=== PATIENT | male | born 1930 ===

== ENCOUNTER 2016-08-28 13:41 | Inpatient (IN) | payer MEDICARE, BC ==
[2016-08-28] MEDS ORDERED: Insulin Regular 1 UNITS/0.01 ML ML ONE (13:52)
[2016-08-28] MEDS ORDERED: Lidocaine 2% Inj (20ml) ONE (14:01)
[2016-08-28] MEDS ORDERED: Phenylephrine 10 mg/ml Inj ONE (14:02)
[2016-08-28] MEDS ORDERED: Midazolam 2 MG/2 ML VIAL ONE (14:02)
[2016-08-28] MEDS ORDERED: Iohexol 350mgl/ml 50 ML ONE (14:03)
[2016-08-28] MEDS ORDERED: Iodixanol 320 MG/ML 200 ML BOTTLE IV ONE (14:03)
[2016-08-28] MEDS ORDERED: Nitroglycerin 50mg in D5W 0 MG/0 ML BOTTLE IV ONE (14:03)
--- NOTE | 2016-08-28 14:03 | ED PDOC ---
Arrival/HPI - General Chief Complaint: Cardiac Arrest Time Seen by Provider: 08/28/16 13:52 Historian: EMS - History of Present Illness Narrative History of Present Illness (Text): 08/28/16 13:40 Patient is an 86 year old male whose past medical history includes renal failure on dialysis presents to the emergency department after witnessed cardiac arrest approximately 10 minutes prior to arrival. As per EMS, patient was going to dialysis and was complaining of shortness of breath as he was being transferred from the wheelchair to the dialysis chair. Patient then reportedly had witnessed cardiac arrest. CPR in progress on arrival to the emergency department. 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) - Renal Date of Last Dialysis Treatment: 09/06/15 Hx Renal Failure: Yes - Endocrine/Metabolic Hx Diabetes Mellitus Type 2: Yes - Hematological/Oncological Hx Blood Transfusions: No - Musculoskeletal/Rheumatological Hx Musculoskeletal Disorders: Yes - Gastrointestinal Hx Gastrointestinal Disorders: Yes (Constipation) - Psychiatric Hx Emotional Abuse: No Hx Physical Abuse: No Hx Substance Use: No - Surgical History Other/Comment: angioplasty, dialysis access rt arm - Anesthesia Hx Anesthesia Reactions: No Hx Malignant Hyperthermia: No - Suicidal Assessment Feels Threatened In Home Enviroment: No Family/Social History - Physician Review Nursing Documentation Reviewed: Yes Family/Social History: Unknown Family HX Smoking Status: Unknown If Ever Smoked Hx Alcohol Use: No Hx Substance Use: No Allergies/Home Meds Allergies/Adverse Reactions: Allergies No Known Allergies Allergy (Verified 09/07/15 21:26) Home Medications: Home Meds Medication Instructions Recorded Confirmed Aluminium Sulfate/Calcium Acet 1 tab PO TID 07/19/15 07/19/15 [[place]] Bimatoprost [Lumigan] 1 drop AU DAILY 07/19/15 07/19/15 Insulin Lispro Protamin/Lispro 15 units SC BID 07/19/15 07/19/15 [Humalog Mix 75-25 Vial] Calcium Acetate [Phoslo] 667 mg PO WM 09/07/15 04/22/16 Insulin Lispro Protamin/Lispro 15 unit SC ACBD 09/07/15 04/22/16 [Humalog Mix 75/25 75 U/ml-25 U/ml 10 ml] ALPRAZolam [Xanax] 0.25 mg PO BID PRN 04/18/16 04/22/16 Gabapentin [Neurontin] 100 mg PO BID 04/18/16 04/22/16 Review of Systems - Review of Systems Systems not reviewed;Unavailable: Acuity of Condition Physical Exam - Physical Exam Narrative Physical Exam (Text): Head: Atraumatic. Normocephalic. Eyes: pupils are nonreactive ENT: vomitus noted in oropharynx, large amount of secretions Neck: trachea midline, no edema or crepitus Cardiovascular: pulseless, no cardiac activity Pulmonary/Chest: no spontaneous respirations Abdominal: Soft but mildly distended Back: normal inspection Rectal: brown heme negative stool Extremities: no calf edema noted Skin: cool and pale Neurological: no movements, pupils fixed, no spontaneous respirations, unresponsive Vital Signs Reviewed: Yes Vital Signs Temp Pulse Resp BP Pulse Ox 08/28/16 14:15 97.6 F 58 L 14 112/56 L 96 08/28/16 14:10 61 16 96/63 L 96 08/28/16 13:55 89 16 178/75 H 98 Pulse: Pulseless Medical Decision Making ED Course and Treatment: Patient seen immediately on arrival. History obtained by EMS personnel, reported witnessed arrest at dialysis center. HE DID NOT START DIALYSIS PRIOR TO ARRIVAL. He was scheduled for today. No family members present on arrival. Reported witnessed arrest "patient slumped in chair". Reportedly he had been complaining of shortness of breath. Patient is found to be pulseless on arrival. IV line established as CPR continued. Asystole on monitor. Patient intubated by me on arrival. Patient pulseless and unresponsive. Oropharynx suctioned of food material. Vocal cords visualized and 7.5 ET tube passed through vocal cords with direct visualization. ET tube visualized through cords, appropriate CO2 change as well as good breath sounds bilaterally with ventilation. Respiratory at bedside as CPR continued. Differential diagnosis included acute KS, possible hyperkalemia as he is dialysis patient and did not complete dialysis. Thus, bicarbonate, calcium, d50, insulin given. 1342 1st epi 1344 1st bicarb, 1st calcium 1st shock for wide complex tachycardia 1346 2nd epi, 2nd bicarb 1349 2nd shock for ventricular fibrillation 1350 3rd epi, amiodarone given for wide complex rhythm noted on monitor Return of pulses, carotid pulse palpated. EKG obtained. EKG at 13:59 consistent with acute myocardial infarction. Code Heart called. Case discussed with Dr. Singh. Patient maintained pulse and blood pressure in ED. Dr. Rose, patient's PMD notified and present, requests admission to Dr. Avila. Patient to be admitted to ICU, plan to take to civil laboratory technician given EKG findings. Son and daughter updated with patient's condition and treatment plan. PROCEDURE: CT HEAD WITHOUT CONTRAST. Plant Packer : Adonis Chavez MD Report Date : 08/28/2016 14:59:06 IMPRESSION: No acute findings Care turned over to cardiology team/icu team at 14:50. - Critical Care Critical Care Minutes: 45 minutes - Lab Interpretations Microbiology Results: Microbiology Results 08/28/16 14:15 Blood Blood Culture - Preliminary NO GROWTH AFTER 24 HOURS 08/28/16 14:12 Blood Blood Culture - Preliminary NO GROWTH AFTER 24 HOURS Lab Results: 08/28/16 14:05 08/28/16 14:05 Lab Results 08/28/16 14:05: Sodium 136, Potassium 3.8, Chloride 92 L, Carbon Dioxide 23, Anion Gap 25 H, BUN 80 H, Creatinine 6.1 H, Est GFR ( Amer) 11, Est GFR ( Non-Af Amer) 9, Random Glucose 440 H* D, Calcium 9.3, Total Bilirubin 0.7, AST 162 H, ALT 141 H, Alkaline Phosphatase 129, Lactate Dehydrogenase 1139 H, Total Creatine Kinase 308 H, CK-MB (CK-2) 27.8 H, CK-MB (CK-2) % 9.0 H, Troponin I 5.79 H* D, NT-Pro-B Natriuret Pep 00367 H, Total Protein 6.3, Albumin 3.7, Globulin 2.7, Albumin/Globulin Ratio 1.4 08/28/16 14:05: Sodium 156 H*, Potassium 4.9, Chloride 97 L, Carbon Dioxide 43 H D, Anion Gap 21 H, BUN 86 H, Creatinine 4.9 H, Est GFR ( Amer) 14, Est GFR (Non-Af Amer) 11, Random Glucose 213 H, Calcium 11.7 H, Total Bilirubin 0.6 , AST 43, ALT 38, Alkaline Phosphatase 72, Lactate Dehydrogenase 720 H, Total Creatine Kinase 153, Troponin I 4.33 H* D, NT-Pro-B Natriuret Pep 66349 H, Total Protein 5.3 L, Albumin 2.9 L, Globulin 2.4, Albumin/Globulin Ratio 1.2 08/28/16 14:05: PT 15.5 H, INR 1.44 H, APTT 29.0 08/28/16 14:05: WBC 10.3 D, RBC 2.95 L, Hgb 9.3 L, Hct 28.3 L, MCV 95.9, MCH 31.5, MCHC 32.9, RDW 14.4, Plt Count 106 L, MPV 12.3 H, Gran % 36.1 L, Lymph % ( Auto) 55.8 H, Fult[place] % (Auto) 6.0, Eos % (Auto) 1.8, Baso % (Auto) 0.3, Gran # 3.71, Lymph # 5.7 H, [place] # 0.6, Eos # 0.2, Baso # 0.03 - RAD Interpretation Radiology Orders: 08/28/16 13:59 CHEST PORTABLE [RAD] Stat Stock Counter: ED Physician, Radiologist - EKG Interpretation Interpreted by ED Physician: Yes Type: 12 lead EKG - Medication Orders Current Medication Orders: Albuterol/Ipratropium (Duoneb 3 Mg/0.5 Mg (3 Ml) Ud) 3 ml IH [id number] [facility] Last Admin: 08/30/16 07:11 Dose: 3 ml Albuterol/Ipratropium (Duoneb 3 Mg/0.5 Mg (3 Ml) Ud) 3 ml IH Q2H PRN PRN Reason: Shortness of Breath Aspirin (Ecotrin) 81 mg PO DAILY [facility] Last Admin: 08/30/16 09:14 Dose: 81 mg Atorvastatin Calcium (Lipitor) 80 mg PO DIN [facility] Last Admin: 08/28/16 18:11 Dose: 80 mg Carvedilol (Coreg) 3.125 mg PO BID [facility] Last Admin: 08/30/16 09:14 Dose: Not Given Non-Admin Reason: BP Parameters Not Met Clopidogrel Bisulfate (Plavix) 75 mg PO DAILY [facility] Last Admin: 08/30/16 09:15 Dose: 75 mg Heparin Sodium (Porcine) (Heparin) 5,000 units SC Q8H ALBERTO PRN Reason: Protocol Last Admin: 08/30/16 09:14 Dose: 5,000 units Levetiracetam 1,000 mg/ Sodium (Chloride) 110 mls @ 460 mls/hr IV Q12 [facility] Last Admin: 08/30/16 09:26 Dose: 460 mls/hr Acetaminophen (Ofirmev) 1,000 mg in 100 mls @ 400 mls/hr IVPB Q6H PRN PRN Reason: T more then 99.9 Stop: 08/30/16 16:58 Dobutamine HCl/Dextrose (Dobutamine/Dextrose 5% 500mg/250ml) 500 mg in 250 mls @ 4.763 mls/hr IV .Q24H PRN; Protocol; 2.5 MCG/KG/MIN PRN Reason: TITRATE PER PROTOCOL Last Admin: 08/30/16 07:00 Dose: 4.763 mls/hr Norepinephrine Bitartrate 4 mg (/ Dextrose) 254 mls @ 15.24 mls/hr IV .[id number] PRN; Protocol; 4 MCG/MIN PRN Reason: TITRATE PER MD ORDER Last Titration: 08/30/16 09:34 Dose: 4 mcg/min, 15.24 mls/hr Meropenem 500 mg/ Sodium (Chloride) 100 mls @ 100 mls/hr IVPB Q12 ALBERTO PRN Reason: Protocol Stop: 09/04/16 19:42 Last Admin: 08/30/16 09:15 Dose: 100 mls/hr Propofol (Diprivan) 1,000 mg in 100 mls @ 2.04 mls/hr IV .Q24H PRN; Protocol; 5 MCG/KG/MIN PRN Reason: TITRATE PER MD ORDER Sodium Bicarbonate 75 meq/ (Dextrose) 1,075 mls @ 150 mls/hr IV .Q7H10M [facility] Last Admin: 08/30/16 09:36 Dose: 150 mls/hr Insulin Human Lispro (Humalog Med) 0 units SC Q4H [facility] PRN Reason: Protocol Last Admin: 08/30/16 08:27 Dose: 5 units Pantoprazole Sodium (Protonix Inj) 40 mg IVP DAILY [facility] Last Admin: 08/30/16 09:15 Dose: 40 mg Discontinued Medications Albumin Human (Albumin Human 5% (12.5 Gm/250 Ml)) 12.5 gm IV ONCE ONE Stop: 08/28/16 19:29 Last Admin: 08/28/16 20:36 Dose: 12.5 gm Albumin Human (Albumin Human 5% (12.5 Gm/250 Ml)) 12.5 gm IV ONCE ONE Stop: 08/28/16 19:35 Albuterol/Ipratropium (Duoneb 3 Mg/0.5 Mg (3 Ml) Ud) Confirm Administered Dose 3 ml .ROUTE .STK-MED ONE Stop: 08/29/16 13:25 Aspirin (Aspirin) Confirm Administered Dose 325 mg .ROUTE .STK-MED ONE Stop: 08/28/16 14:11 Last Admin: 08/28/16 14:15 Dose: 325 mg Atropine Sulfate (Atropine) Confirm Administered Dose 1 mg .ROUTE .STK-MED ONE Stop: 08/28/16 14:02 Last Admin: 08/28/16 16:31 Dose: Clopidogrel Bisulfate (Plavix) Confirm Administered Dose 600 mg .ROUTE .ST-MED ONE Stop: 08/28/16 14:11 Last Admin: 08/28/16 14:15 Dose: 600 mg Eptifibatide (Integrilin Bolus) Confirm Administered Dose 20 mg IVP .ST-MED ONE Stop: 08/28/16 14:15 Last Admin: 08/28/16 14:25 Dose: 20 mg Eptifibatide (Integrilin Bolus) Confirm Administered Dose 40 mg IVP .ST-MED ONE Stop: 08/28/16 14:15 Last Admin: 08/28/16 14:58 Dose: 12.4 mg Comments: IV per Dr. Singh. 2nd bolus Fentanyl (Fentanyl) Confirm Administered Dose 100 mcg .ROUTE .STK-MED ONE Stop: 08/28/16 14:04 Last Admin: 08/28/16 16:31 Dose: Heparin Sodium (Porcine) (Heparin) Confirm Administered Dose 10,000 units .ROUTE .STK-MED ONE Stop: 08/28/16 14:03 Last Admin: 08/28/16 16:31 Dose: Heparin Sodium (Porcine) (Heparin) Confirm Administered Dose 5,000 units .ROUTE .STK-MED ONE Stop: 08/28/16 14:14 Last Admin: 08/28/16 14:20 Dose: 5,000 units Nitroglycerin/Dextrose (Nitroglycerin 50 Mg/250 Ml D5w) Confirm Administered Dose 50 mg in 250 mls @ ud IV .STK-MED ONE Stop: 08/28/16 14:04 Last Admin: 08/28/16 16:32 Dose: Heparin Sodium (Porcine) (Heparin 1000 Units/500 Ml Ns) Confirm Administered Dose 1,500 mls @ ud IV .STK-MED ONE Stop: 08/28/16 14:04 Eptifibatide (Integrilin) Confirm Administered Dose 75 mg in 100 mls @ ud IV .STK-MED ONE Stop: 08/28/16 14:14 Last Admin: 08/28/16 14:25 Dose: 5.6 mg Eptifibatide (Integrilin) Confirm Administered Dose 75 mg in 100 mls @ ud IV .STK-MED ONE Stop: 08/28/16 14:15 Last Admin: 08/28/16 14:56 Dose: Eptifibatide (Integrilin) 75 mg in 100 mls @ 4.953 mls/hr IV .[id number] ALBERTO; 1 MCG/KG/MIN PRN Reason: Protocol Stop: 08/29/16 09:00 Propofol (Diprivan) 1,000 mg in 100 mls @ 1.905 mls/hr IV .Q24H PRN; Protocol; 5 MCG/KG/MIN PRN Reason: TITRATE PER MD ORDER Last Admin: 08/29/16 22:30 Dose: 10 mcg/kg/min, 3.81 mls/hr Sodium Chloride (Sodium Chloride 0.9%) 1,000 mls @ 150 mls/hr IV .Q6H40M [facility] Last Admin: 08/30/16 00:50 Dose: 150 mls/hr Insulin Human Regular 100 (units/ Sodium Chloride) 100 mls @ 5 mls/hr IV .Q20H PRN; Protocol; 5 UNITS/HR PRN Reason: TITRATE PER MD ORDER Last Titration: 08/28/16 23:21 Dose: 10 units/hr, 10 mls/hr Vancomycin HCl (Vancomycin 1gm) 1 gm in 250 mls @ 167 mls/hr IVPB STAT STA PRN Reason: Protocol Stop: 08/28/16 18:45 Last Admin: 08/28/16 18:11 Dose: 167 mls/hr Sodium Chloride (Sodium Chloride 0.9%) 1,000 mls @ 999 mls/hr IV .Q1H1M STA Stop: 08/28/16 18:48 Last Admin: 08/28/16 18:06 Dose: 999 mls/hr Potassium Chloride (Potassium Chloride 20 Meq/100 Ml) Confirm Administered Dose 20 meq in 100 mls @ ud IVPB .STK-MED ONE Stop: 08/29/16 04:52 Sodium Bicarbonate 75 meq/ (Dextrose) 1,075 mls @ 75 mls/hr IV .[id number] [facility] Last Admin: 08/29/16 23:34 Dose: 75 mls/hr Potassium Chloride (Potassium Chloride 20 Meq/100 Ml) 20 meq in 100 mls @ 50 mls/hr IVPB Q2H [facility] Stop: 08/29/16 08:24 Propofol (Diprivan) 1,000 mg in 100 mls @ 1.905 mls/hr IV .Q24H PRN; Protocol; 5 MCG/KG/MIN PRN Reason: TITRATE PER MD ORDER Last Titration: 08/30/16 00:31 Dose: 15 mcg/kg/min, 5.715 mls/hr Vancomycin HCl (Vancomycin 1gm) 1 gm in 250 mls @ 167 mls/hr IVPB STAT STA PRN Reason: Protocol Stop: 08/30/16 10:10 Last Admin: 08/30/16 09:17 Dose: 167 mls/hr Insulin Human Regular (Humulin R) Confirm Administered Dose 2 units .ROUTE .STK- MED ONE Stop: 08/28/16 13:53 Iodixanol (Visipaque 320 Mg/Ml 200 Ml) Confirm Administered Dose 200 ml IV .STK- MED ONE Stop: 08/28/16 14:04 Last Admin: 08/28/16 15:00 Dose: 200 ml Comments: During cath Iodixanol (Visipaque 320 Mg/Ml 100 Ml) Confirm Administered Dose 100 ml IV .STK- MED ONE Stop: 08/28/16 14:05 Last Admin: 08/28/16 15:00 Dose: 100 ml Comments: During cath Iohexol (Omnipaque 350mg/Ml 50 Ml) Confirm Administered Dose 50 ml .ROUTE .STK- MED ONE Stop: 08/28/16 14:04 Last Admin: 08/28/16 15:00 Dose: 50 ml Comments: During cath Lidocaine HCl (Lidocaine 2% 20ml Vial) Confirm Administered Dose 20 ml .ROUTE .STK-MED ONE Stop: 08/28/16 14:02 Last Admin: 08/28/16 15:00 Dose: 8 ml Comments: SC into right groin by Dr. Singh Lorazepam (Ativan) 4 mg IVP STAT STA Stop: 08/28/16 16:57 Last Admin: 08/28/16 19:44 Dose: 4 mg Midazolam HCl (Versed Inj) Confirm Administered Dose 2 mg .ROUTE .STK-MED ONE Stop: 08/28/16 14:03 Last Admin: 08/28/16 16:33 Dose: Phenylephrine HCl (Phenylephrine Inj) Confirm Administered Dose 10 mg .ROUTE .STK-MED ONE Stop: 08/28/16 14:03 Last Admin: 08/28/16 15:28 Dose: 0.2 mg Comments: IV per Dr. Singh Verapamil HCl (Verapamil Inj) Confirm Administered Dose 5 mg IVP .STK-MED ONE Stop: 08/28/16 14:05 Last Admin: 08/28/16 16:33 Dose: - Scribe Statement The provider has reviewed the documentation as recorded by the Hugh Ferguson Provider Scribe Attestation: All medical record entries made by the Hugh were at my direction and personally dictated by me. I have reviewed the chart and agree that the record accurately reflects my personal performance of the history, physical exam, medical decision making, and the department course for this patient. I have also personally directed, reviewed, and agree with the discharge instructions and disposition. Disposition/Present on Arrival - Present on Arrival Any Indicators Present on Arrival: No History of DVT/PE: No History of Uncontrolled Diabetes: No Urinary Catheter: No History of Decub. Ulcer: No History Surgical Site Infection Following: None - Disposition Have Diagnosis and Disposition been Completed?: Yes Diagnosis: Cardiac arrest, Myocardial infarction Disposition: HOSPITALIZED Disposition Time: 14:30 Patient Plan: Admission, ICU Patient Problems: Current Active Problems Problem Status Onset Cardiac arrest Acute Myocardial infarction Acute Condition: CRITICAL
[2016-08-28] MEDS ORDERED: Iodixanol 320 MG/ML 100 ML BOTTLE IV ONE (14:04)
[2016-08-28 14:06] LABS: ADD MANUAL DIFF? NO
[2016-08-28 14:08] LABS: BASO # 0.03 K/mm3 (0.0-2.0); BASO % 0.3 % (0.0-3.0); EOS # 0.2 (0.0-0.7); EOS % 1.8 % (1.5-5.0); GRAN # 3.71 (1.4-6.5); GRAN % 36.1 % (50.0-68.0); HEMATOCRIT 28.3 % (42.0-52.0); LYMPH # 5.7 (1.2-3.4); LYMPH % 55.8 % (22.0-35.0); MEAN CELL VOLUME 95.9 fL (80.0-105.0); MEAN CORPUSCULAR HEMOGLOBIN 31.5 pg (25.0-35.0); MEAN CORPUSCULAR HGB CONC 32.9 g/dl (31.0-37.0); MEAN PLATELET VOLUME 12.3 fl (7.0-11.0); MONO # 0.6 (0.1-0.6); PLATELET COUNT 106 10^3/uL (120.0-450.0); RED CELL DISTRIBUTION WIDTH 14.4 % (11.5-14.5); WHITE BLOOD COUNT 10.3 10^3/ul (4.5-11.0)
[2016-08-28] MEDS ORDERED: Eptifibatide 0.75 mg/ml 75 MG/100 ML BOTTLE IV ONE ×2 (14:13→14:14)
[2016-08-28] MEDS ORDERED: Eptifibatide 20 mg/10mL Inj IVP ONE (14:14)
[2016-08-28 14:15] VITALS: BMI 26.4
[2016-08-28] MEDS: Eptifibatide 20 mg/10mL Inj IVP ONE ×2 (14:15→14:58)
--- NOTE | 2016-08-28 14:19 | RAD ---
HISTORY: cardiac arrest COMPARISON: 09/07/2015 FINDINGS: LUNGS: Vague increased pulmonary venous congestion and central hilar engorgement with cardiomegaly-. Interval endotracheal tube insertion its tip approximately 1.7 cm from the julio cesar. No consolidation PLEURA: No significant pleural effusion identified, no pneumothorax apparent. CARDIOVASCULAR: As above OSSEOUS STRUCTURES: No significant abnormalities. VISUALIZED UPPER ABDOMEN: Normal. OTHER FINDINGS: None. IMPRESSION: Cardiomegaly and mild pulmonary venous congestion, central hilar engorged. Endotracheal tube tip -1.7 cm from the julio cesar
[2016-08-28 14:20] LABS: ALB/GLOB RATIO 1.2 (1.1-1.8); BILIRUBIN,TOTAL 0.6 mg/dL (0.2-1.3); CALCIUM 11.7 mg/dL (8.4-10.5); POTASSIUM 4.9 mmol/L (3.6-5.0); TOTAL PROTEIN 5.3 g/dL (5.8-8.3)
[2016-08-28 14:21] LABS: INR 1.44 (0.93-1.08)
[2016-08-28 14:41] LABS: TROPONIN I 4.33 ng/mL
[2016-08-28 14:47] LABS: ALB/GLOB RATIO 1.4 (1.1-1.8); BILIRUBIN,TOTAL 0.7 mg/dL (0.2-1.3); CALCIUM 9.3 mg/dL (8.4-10.5); POTASSIUM 3.8 mmol/L (3.6-5.0); TOTAL PROTEIN 6.3 g/dL (5.8-8.3)
--- NOTE | 2016-08-28 15:00 | CT ---
PROCEDURE: CT HEAD WITHOUT CONTRAST. HISTORY: ams COMPARISON: 09/07/2015 TECHNIQUE: Axial computed tomography images were obtained through the head/brain without intravenous contrast. Radiation dose: Total exam DLP = 791 mGy-cm. This CT exam was performed using one or more of the following dose reduction techniques: Automated exposure control, adjustment of the mA and/or kV according to patient size, and/or use of iterative reconstruction technique. FINDINGS: HEMORRHAGE: No intracranial hemorrhage. BRAIN: No mass effect or edema. No atrophy or chronic microvascular ischemic changes. VENTRICLES: Unremarkable. No hydrocephalus. CALVARIUM: Unremarkable. PARANASAL SINUSES: Unremarkable as visualized. No significant inflammatory changes. MASTOID AIR CELLS: Unremarkable as visualized. No inflammatory changes. OTHER FINDINGS: None. IMPRESSION: No acute findings
[2016-08-28 15:03] LABS: TROPONIN I 5.79 ng/mL
--- NOTE | 2016-08-28 15:04 | CP.PCM.PN ---
<Mirna Begum - Last Filed: 08/28/16 15:18> Subjective - Date & Time of Evaluation Date of Evaluation: 08/28/16 Time of Evaluation: 15:04 - Subjective Subjective: Code heart 86 yo male with PMH including renal failure on HD presented to ED after witnessed cardaic arrest. Patient was at the dialysis center for scheduled dialysis. Patient complained of SOB and had witnessed loss of consciousness. EMS was called and patient was transported to [facility] ER. While in the ED patient was resuscitated, and intubated, ACLS protocol followed. Pulses returned after 10 mins. EKG showed inferior lead STEMI. Code heart was called. We responded to code heart stat. Technology Integration Specialist responded to code heart. As per spooler patient was taken to radiology for CT head with transportable vent, O2, and heart monitor. CT scan of head reported negative. Patient was then transferred to laboratory analyst by respiratory therapist, ICU nurse, tech from ED and ourselves. Patient was endorsed to laboratory analyst team, Dr. Singh already present in laboratory analyst. Objective - Vital Signs/Intake and Output Vital Signs (last 24 hours): Temp Pulse Resp BP Pulse Ox 97.6 F 58 L 14 112/56 L 96 08/28/16 14:15 08/28/16 14:15 08/28/16 14:15 08/28/16 14:15 08/28/16 14:15 - Labs Labs: 08/28/16 14:05 08/28/16 14:05 PT 15.5 Seconds (9.9-11.8) H 08/28/16 14:05 INR 1.44 (0.93-1.08) H 08/28/16 14:05 APTT 29.0 Seconds (23.7-30.8) 08/28/16 14:05 <Nat Motta - Last Filed: 08/28/16 15:37> Objective - Vital Signs/Intake and Output Vital Signs (last 24 hours): Temp Pulse Resp BP Pulse Ox 97.6 F 58 L 14 112/56 L 96 08/28/16 14:15 08/28/16 14:15 08/28/16 14:15 08/28/16 14:15 08/28/16 14:15 - Labs Labs: PT 15.5 Seconds (9.9-11.8) H 08/28/16 14:05 INR 1.44 (0.93-1.08) H 08/28/16 14:05 APTT 29.0 Seconds (23.7-30.8) 08/28/16 14:05 Attending/Attestation - Attestation I have personally seen and examined this patient.: No I have fully participated in the care of the patient.: No I have reviewed all pertinent clinical information, including history, physical exam and plan: Yes Notes (Text): 08/28/16 15:32 Pt was treated by ER MD,stabilized.Thereafter,he was taken for CAT scan of the head,then to the laboratory analyst as already noted above.
[2016-08-28] MEDS ORDERED: Eptifibatide 0.75 mg/ml 75 MG/100 ML BOTTLE IV SCH (16:30)
[2016-08-28] MEDS ORDERED: Propofol 10 mg/ml 1,000 MG/100 ML VIAL IV PRN (16:51)
[2016-08-28] MEDS ORDERED: Insulin Regular 100 UNITS in Sodium Chloride 0.9% 99 ML IV PRN (17:07)
[2016-08-28] MEDS ORDERED: Vancomycin 1gm in NS 250ml 1 GM/250 ML BAG IVPB STA (17:16)
[2016-08-28 17:20] LABS: ARTERIAL BLOOD GAS PH 7.25 (7.35-7.45)
[2016-08-28] MEDS ORDERED: Sodium Chloride 0.9% 1,000 ML IV STA (17:48)
[2016-08-28] MEDS: DOBUTamine 500mg/250ml D5W 500 MG/250 ML BAG IV PRN (17:50)
[2016-08-28] MEDS: Sodium Chloride 0.9% 1,000 ML IV SCH (18:13)
--- NOTE | 2016-08-28 18:57 | PCM.PROC ---
<Sanchez Hou - Last Filed: 08/28/16 18:49> Procedures Attestation:: I certify that I have explained the specified Operation(s) or Procedure(s), risks, benefits and reasonable alternatives to the Patient and/or other person responsible. The opportunity was given to ask questions and all questions answered - Central Line Placement Left Internal Jugular Aseptic technique was employed throughout the procedure: Hand Hygiene done prior to procedure, Full sterile barriers (mask, hair cover, sterile gown, sterile gloves), Full body sterile drape, Chloraprep Antiseptic: 30 second prep for IJ or SC sites CVP Time Out Performed: Yes Pt. Placed on Pulse Ox Monitor: Yes Central Line Prep: Chlorhexidine-Alcohol Combination Local Anesthesia Used: Lidocaine 1% Amount of Anesthesia Used (mls): 3 Ultrasound Used for Placement: Yes Central Line Lumen Inserted: triple Central Line Length: 20 cm Post Procedure: Sutured in Place, Good Blood Return, All Ports Aspirated, Flushed, Capped, Sterile Dressing Applied Secured by: Suture Post procedure dressing: Gauze, Clear vapor permeable, Chlorhexidine disc ( Biopatch) Post Procedure X-Ray: Yes Patient Tolerated Procedure: Well, No Complications Immediate Complications: None <Mauricio Rubio - Last Filed: 09/02/16 16:04> Addendum Addendum: 09/02/16 16:02 Procedure: L. IJ CVC Indication: vasopressor therapy and Hemodynamic monitoring After obtaining informed consent, operational area was sterilized and maximum barrier precautions used. L.IJ was cannulated by sterile seldinger techniquie under real time ultrasound guidance. Guidewire removed, hemostasis achieved, sterile dressings applied. CXR--SVC position of CVC Track Hoe Operator: Ramiro Fire Engineer: Ameya 09/02/16 16:04
--- NOTE | 2016-08-28 19:10 | CON ---
DATE: 08/28/2016 REASON FOR CONSULTATION: Code STEMI, inferior wall myocardial infarction. BRIEF CLINICAL HISTORY: This is an 86-year-old male, history of dialysis 2010, diabetes 30 years, hy pertension, hyperlipidemia, being followed by Dr. Canada, who admitted here with code STEMI witnesse d cardiac arrest, status post CPR. Downtime 10-15 minutes, so code STEMI was activated. The patient was seen in ER, intubated, vitals relatively stable after shocking patient's rhythm back and CPR, in normal sinus with ST elevation OH -- II, III, aVF with a reciprocal ST depression, so code STEMI was activated, 5000 heparin was given. Plavix 600 mg, aspirin was given, Integrilin was given. The pat ient ____ to the ER, but no relatives available at this time, so consent signed by the 2 physicians, me and Dr. Lev Elizabeth. In interest of the patient, better to get cardiac cath and possible angioplast y. PAST HISTORY: Significant for diabetes, hypertension, hyperlipidemia, end-stage renal disease on pepe lysis. SOCIAL HISTORY: Denies any smoking. Denies any history of alcohol. SURGICAL HISTORY: Significant for bilateral lower extremity stenting and fistulogram. ALLERGIES: No known drug allergies. CURRENT MEDICATIONS: The patient at home was taking insulin, gabapentin, Lumigan, Xanax. REVIEW OF SYSTEMS: As per HPI. PHYSICAL EXAMINATION: As follows: VITAL SIGNS: Temperature afebrile, heart rate 58, blood pressure 112/56 Height of the patient 5 petra t 1 inch. Weight of the patient 140 pounds. LABORATORY DATA: WBC 10.3, hemoglobin 9.3, hematocrit 28.3, platelet count 106. Chemistry shows sod ium 150, potassium 4.9, chloride 97, carbon dioxide 43, anion gap 21, BUN 86, creatinine 4.9. EKG sh ows AFib, ST elevation inferior lead. IMPRESSION: Acute ST segment myocardial infarction, witnessed arrest, status post cardiopulmonary re suscitation, status post intubated, cardiorespiratory failure. Relatively stable hemodynamic. Downt paulino 15 minutes. Risks, benefits, and alternatives discussed with both physicians and is the best int erest of the patient to take to the garage laborer. Dr. Elizabeth, ER physician, and I signed the consent. Wait ing for the family members, but on the way, we will get a CAT scan of the head before we do the inter vention. Further recommendation depending upon the hospital course. We will follow with you. Thank you, ____, for providing us the opportunity in taking care of the patient. Rojelio Singh MD cc: [id number] TT: 08/28/2016 19:09:48 Confirmation # [id number] Dictation # [id number]
--- NOTE | 2016-08-28 19:18 | CON ---
DATE: 08/28/2016 REASON FOR CONSULTATION: Acute cardiac arrest, acute myocardial infarction, ESRD. HISTORY OF PRESENTING ILLNESS: An 86-year-old male known to me from outpatient hemodialysis. He was sent via ambulance from the dialysis unit. The patient reported that he was feeling tired when he c ju into the dialysis unit. He was escorted to a chair. Subsequently, he vomited and became unrespo nsive. He was found to be pulseless. He had some CPR in the field. Then, he was sent to the [facility] Room via ambulance. As per the ER doctor, Dr. Huffman, patient was initially pulseless. CPR was initiated. After about 15 minutes, regained pulse. The patient was intubated as soon as he came to the Emergency Room. Initial rhythm appeared to be showing ST elevations, was given calcium bicarbon ate and amiodarone during the code. The patient resuscitated. On his way to the field laboratory operator [facility]. PAST MEDICAL AND SURGICAL HISTORY: NIDDM, hypertension, ESRD, on dialysis Friday, Friday and ay, arthritis, CAD, angioplasty, AVF right arm. FAMILY HISTORY: Noncontributory. SOCIAL HISTORY: No smoking, no alcohol use, no IV drug abuse. ALLERGIES: No known drug allergies. MEDICATIONS AT HOME: Insulin, Neurontin, PhosLo. REVIEW OF SYSTEMS: Unavailable as patient is intubated, on life support. PHYSICAL EXAMINATION: GENERAL: Elderly male, seen in the code room. VITAL SIGNS: Blood pressure 112/56, heart rate 58, respiratory rate 14, temperature 97.6. HEENT: Normocephalic, atraumatic, positive pallor. NECK: Supple, no JVD. LUNGS: Bilateral equal air entry, equal expansion. CARDIAC: S1, S2, irregularly irregular, no murmur, no rub. ABDOMEN: Obese, distended, soft, nontender, bowel sounds present. EXTREMITIES: 1+ pitting edema of the lower extremities. INTAKE AND OUTPUT: Not charted. LABORATORY DATA: WBC 10, hemoglobin 9.3, hematocrit 28.3, platelets 106. Sodium 136, potassium 3.8, chloride 92, CO2 23, BUN 80, creatinine 6.1, glucose 440, calcium 9.3, AST 162, ALT 141. Troponin 5 .7. Albumin 3.7. ASSESSMENT: An 86-year-old male with history of hkg-chsrajp-ktlqjslue diabetes mellitus, hypertensio n, coronary artery disease, end-stage renal disease, seen status post witnessed cardiac arrest in the dialysis unit. The patient had not been dialyzed. The patient resuscitated in the Emergency Room. Now on mechanical ventilation. The patient has evidence of acute myocardial infarction. Elevated t roponins, ST elevations in diffuse leads. The patient is en route to the cardiac catheterization lab . 1. Acute myocardial infarction, cardiac arrest. 2. Severe hyperglycemia. 3. Elevated BNP. 4. Anemia of chronic kidney disease. 5. End-stage renal disease, due for dialysis today. PLAN: 1. Will hold dialysis until patient is stable, patient is en route to the field laboratory operator now. 2. The patient is critically ill. 3. Will discuss with cardiology. 4. Discussed at length with daughter at bedside. 5. Discussed with Dr. Ocampo in the Emergency Room. 6. More than 35 minutes spent in the care of this critically ill patient. Meghan Rose MD cc: [id number] TT: 08/28/2016 19:17:24 Confirmation # [id number] Dictation # [id number] en
[2016-08-28 19:22] LABS: POTASSIUM 3.7 mmol/L (3.6-5.0)
[2016-08-28] MEDS ORDERED: Albumin Human 5% (12.5 gm/250 ml) IV ONE ×2 (19:28→19:34)
--- NOTE | 2016-08-28 19:28 | CARD ---
APPROVED REPORT Procedure(s) performed: Left Heart Catheterization PTCA with Stenting of Mid RCA with BMS PTCA with Stenting of proximal Cx HISTORY The patient is a 86 year-old male with a history of : renal failure with dialysis, peripheral vascular disease, diabetes mellitus with oral treatment , tobacco history() : The patient is a former smoker , hypertension , dyslipidemia , Admiited with STEMI, IWMI wittnessed collapsed, S/p CPR with down time 10-15 minutes as per ER Physician, after intubation and resusctation when pulse is back repeat EKG showed A Fib and ST elevation in inferior wall LA, Stat Ct head was done to R/O ICB, and then pt was taken to [facility] as a last ditch effort to save his life after consent signed by two physician,myself and ER physician ( Dr. Elizabeth). Family ( daughter) later on arrived, who is nurse and was informed about his condition who agreed on for cath/PTCA and latter on signed the consent as well.. INDICATION The indication(s) include : STEMI . CASE TECHNIQUE The patient was brought emergently to the Cardiac Catheterization Laboratory in a fasting state and was prepped and draped in a sterile manner. The right femoral groin was infiltrated with 2% Lidocaine subcutaneous anesthesia. A 6 Fr x 23 cm Mariela sheath was inserted into the right femoral artery without difficulty. Coronary angiography was performed using coronary diagnostic catheters. The left coronary system was accessed and visualized with a Diagnostic ,6 Fr JL 4 catheter. The right coronary system was accessed and visualized with a Guided 3DSH catheter. The left ventricle was accessed and visualized with a 6 Fr Pigtail catheter. Left ventricular/Aortic Valve gradient assessed on pullback. Left ventriculogram was performed in LOUISE projection. Closure device was deployed with a 6 Fr / 7 Fr MynxGrip without any complications. The patient tolerated the procedure well and there were no complications associated with the procedure. Vessel Analysis The patient's coronary anatomy is right dominant. The left main coronary artery is a large size vessel with diffuse calcification noted throughout this vessel and with significant stenosis. There is a 30% stenosis in the proximal segment. The left main trifurcates to the left anterior descending, circumflex, and ramus. The left anterior descending artery is a large size vessel with diffuse calcification noted throughout this vessel and without significant stenosis. There is a 40% stenosis in the mid segment. The first diagonal branch is a medium size vessel with diffuse calcification noted throughout this vessel and without significant stenosis. The circumflex artery is a medium size vessel with diffuse calcification noted throughout this vessel and with significant stenosis. There is a 80-90% stenosis in the proximal segment. The first obtuse marginal branch is a small size vessel with diffuse calcification noted throughout this vessel and without significant stenosis. distally diffuse disease The ramus intermedius artery is a large size vessel with diffuse calcification noted throughout this vessel and without significant stenosis. There is a 50-60% stenosis in the mid segment. The right coronary artery is a large size vessel with diffuse calcification noted throughout this vessel and with significant stenosis. There is a 99% stenosis in the mid segment. The right posterior descending artery is a medium size vessel with diffuse calcification noted throughout this vessel and without significant stenosis. Left Ventricle The left ventricle is borderline in size with moderately decreased contractility. Ischemic cardiomyopathy. The left ventricular ejection fraction is estimated to be 35-40%. The left ventricular end diastolic pressure is 15 mmHg. There was no gradient across the aortic valve upon pullback. PCI Technique Lesion Anticoagulation was achieved with Heparin. Percutaneous coronary intervention was performed on the mid right coronary artery. The lesion stenosis prior to intervention was 99% with ARIANNA 1 flow. A 6 Fr 3DRC SH Guide Catheter was used to engage the ostium. BALLOON DILATION A Balloon catheter 2.0 x 10 mm Sprinter RX was inserted and inflated up to 8.00atm for 15seconds. STENT DEPLOYMENT A bare metal stent 3.0 x 15 mm Integrity BMS was inserted and inflated up to 10.00atm for 20seconds. POST STENT DEPLOYMENT BALLOON DILATION A Balloon catheter 3.0 x 9 mm Sprinter NC was inserted and inflated up to 12.00atm for 20seconds. Final angiography reveals 0 % stenosis with ARIANNA 3 flow. PCI Technique Lesion 2 Percutaneous Coronary Intervention was performed on the proximal circumflex artery segment. The lesion stenosis prior to intervention was 80-90% with ARIANNA 2 flow. A 6 Fr JL 3 Launcher Guide Catheter was used to engage the ostium. BALLOON DILATION A Balloon catheter 2.0 x 6 mm Sprinter RX was inserted and inflated up to 12.00atm for 15seconds. STENT DEPLOYMENT A bare metal stent 2.75 x 18 mm Integrity BMS was inserted and inflated up to 12.00atm for 15seconds. Final angiography reveals 0 % stenosis with ARIANNA 3 flow. Conclusion Acute Inferior wall LA ( code STEMI) RCA and Cx disease S/P CPR, down time 10-15 minutes. EF-35-40%, EDP-15, postero-basal HK. successful PTCA with BMS of RCA and CX, RCA being culprit for this coronary event (IWMI) and collapse initally pt was in A fib, after PTCa convertd on NSR with first degree AV block. Recommendations Daily ASA with Plavix for at least one year Cardiac Risk Reduction Program close F/u for vent mgmt and neuro Eval. Dr. Avila/ Dread.
[2016-08-28 19:50] LABS: ARTERIAL BLOOD GAS HCO3 16.2 mmol/L (21-28)
--- NOTE | 2016-08-28 19:50 | HP ---
The patient is an 86-year-old, a patient of Dr. Canada. I admitted him in 04/2016. The patient was receiving his hemodialysis while the nurse noted that he slumped over and was found to be unresponsiv e. Ambulance was called and he was found to have cardiac arrest. He was resuscitated, brought to Em ergency Room. While he was in ER, he was resuscitated, intubated and EKG showed ST elevation LA. Co de heart was called and patient was brought to brine room laborer and emergent catheterization was done. The p atient was found to have inferior wall LA. PAST MEDICAL HISTORY: Significant for: 1. Hypertension. 2. End-stage renal disease, on hemodialysis. 3. History of non-insulin dependent diabetes. 4. Status post right arm fistula. 5. Anxiety disorder. 6. Generalized osteoarthritis. 7. Glaucoma. 8. 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 9. Status post right superficial femoral artery angiography, angioplasty in 07/2015. 10. Hyperlipidemia. 11. Insulin-dependent diabetes. ALLERGIES: He is not allergic to any medications. MEDICATIONS AT HOME: He is on insulin 75/25 15 units before breakfast and dinner and he is on gabape ntin 100 mg twice a day, PhosLo 667 with each meal, Lumigan, Xanax 0.25 b.i.d. p.r.n. SOCIAL HISTORY: He is , lives with his . Denies smoking, . REVIEW OF SYSTEMS: Significant for being intubated, unresponsive. PHYSICAL EXAMINATION: GENERAL: He is intubated, not responding. VITAL SIGNS: He is afebrile, pulse 58, respiration 14, blood pressure 112/56. LUNGS: Bilateral fair airflow, no rhonchi or crackle. HEART: S1, S2 audible. ABDOMEN: Soft, nontender, no rebound, no guarding. NEUROLOGIC: The patient is sedated. The patient is intubated. EXTREMITIES: Bilateral legs no edema. LABORATORY EXAMINATION: WBCs 10.3, hemoglobin 9.3, hematocrit 28.6, platelets of 106. PT 15.5, INR 1.44. Chem 7: Sodium 136, potassium 3.8, chloride 92, CO2 23, BUN 80, creatinine 6.1, blood sugar o f 440, AST 162, ALT 141, LDH is 1139. His initial troponin was 4.33, followup is 5.79. X-ray chest is unremarkable. ASSESSMENT: 1. Status post inferior wall myocardial infarction. 2. Status post code heart and emergent catheterization. 3. End-stage renal disease, on hemodialysis. 4. Insulin-dependent diabetes. 5. Hypertension. 6. Hyperlipidemia. PLAN: Currently, patient is on Coreg. He is on dobutamine, aspirin 81 daily. He is on Integrilin. He is on dobutamine drip. He is on heparin. He has been started on high dose of Lipitor. He is em pirically being covered with Maxipime, Protonix, and vancomycin. We will continue ICU care. Follow up electrolytes and CBC. Prognosis is poor. We will closely follow this patient. Milind Avila MD cc: [phone] TT: 08/28/2016 19:49:42 en
[2016-08-28 20:19] LABS: MEAN CELL VOLUME 93.9 fL (80.0-105.0); MEAN CORPUSCULAR HGB CONC 34.1 g/dl (31.0-37.0); MEAN PLATELET VOLUME 11.7 fl (7.0-11.0); PLATELET COUNT 130 10^3/uL (120.0-450.0); RED CELL DISTRIBUTION WIDTH 14.4 % (11.5-14.5); WHITE BLOOD COUNT 8.9 10^3/ul (4.5-11.0)
--- NOTE | 2016-08-28 20:19 | CON ---
DATE: 08/28/2016 The patient is an 86-year-old gentleman with history of end-stage renal disease on dialysis, who presented to Emergency Room after witnessed cardiac arrest with shockable rhythm (was shocked out of VC x2). The patient was intubated prior to arrival. He was complaining of shortness of breath and then collapsed. In the Emergency Room, resuscitative efforts continued. After regaining spontaneous circulation, the patient was taken to cardiac catheterization lab emergently where 2 stents were placed. The patient started on Integrilin. After successful PCI, code freeze was called and the patient was transferred to ICU for further management and monitoring. PAST MEDICAL HISTORY: End-stage renal disease on hemodialysis, coronary artery disease, diabetes. FAMILY HISTORY: Noncontributory. SOCIAL HISTORY: No alcohol or illicit drug abuse. Unclear whether he smoked or not in the past. ALLERGIES: NKDA. MEDICATIONS: At home, Lumigan, Lispro insulin, PhosLo, Xanax, Neurontin. REVIEW OF SYSTEMS: Revealed 12 organ system other than mentioned in history of present illness is negative. PHYSICAL EXAMINATION: VITAL SIGNS: At the present time, blood pressure 102/41, heart rate 68, respiratory rate 25, oxygen saturation 100% on FiO2 of 60%, PEEP 5, respiratory rate 25. HEAD AND NECK: Atraumatic. LUNGS: Still crackles bibasilar. HEART: Regular rate and rhythm. S1, S2 normal. ABDOMEN: Soft, nontender, nondistended. MUSCULOSKELETAL: No C/C/E. NEUROLOGIC: The patient just had myoclonic movements concerning for seizures ( Ativan 4 mg given, propofol drip started, Keppra 1000 mg IV q. 12 ordered. EEG ordered stat as well as neurology consult requested). SKIN: Moist. PSYCH: The patient is not responsive to touch stimuli. LABORATORY DATA: WBC 10.3, hemoglobin 9.3, platelet count 106. Sodium 136, potassium 3.8, chloride 92, BUN 80, creatinine 6.1 (patient is on dialysis) glucose 440, AST 162, ALT 141. Troponin 5.729. ProBNP 22,800. INR 1.44. CURRENT MEDICATIONS: The patient is on Tylenol p.r.n., aspirin, Lipitor, Coreg , Plavix, dobutamine drip, Integrilin drip, heparin 5000 subQ q. 8, insulin drip , Keppra, Protonix, propofol, normal saline 1 mL per hour. IMAGING: Head CT showed no acute intracranial pathology. Chest x-ray showed cardiomegaly and mild pulmonary venous congestion. ASSESSMENT AND PLAN: This is an 86-year-old gentleman with out of hospital witnessed cardiac arrest with shockable rhythm with regaining spontaneous circulation and subsequent trip to cardiac senior laboratory technician for percutaneous coronary intervention. Status post 2 stents placed. At present time, we are going to proceed with therapeutic hypothermia. 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 Ativan 4 mg given, propofol drip started, Keppra 1000 mg IV q. 12 ordered. Electroencephalogram and neurology consult is pending. CAT scan of the head did not reveal any intracranial bleed or acute pathology. Pulmonary: We will proceed with protective lung ventilation strategy with tidal volume 6 mL per predicted body weight after initial stabilization. Arterial blood gas with lactic acid is pending. We will continue with euvolemia as we do anticipate hypothermia induced diuresis and we will need to supplement fluid losses accordingly. Once hypothermia protocol completed, we will proceed with conservative fluid management. We will continue with conservative oxygen management. We will continue with head of bed elevated more than 35 degrees. We will continue with deep venous thrombosis and gastrointestinal prophylaxis. After hypothermia, attempt at weaning and daily sedation trials, sedation vacation will be done. Cardiovascular: The patient is in cardiogenic shock. We will start dobutamine drip. The patient had 2 stents placed and currently will be on dual antiplatelet therapy including aspirin and Plavix. The patient is also on Integrilin drip as well. Reportedly, the patient has at least moderate left ventricular systolic dysfunction (based on my conversation with cardiology service, Dr. Singh). At present time, afterload reduction is provided with propofol and positive pressure ventilation. Gastrointestinal: The patient will be on n.p.o. Hypothermia may induce ileus and we will be cognizant of this. Renal: The patient is on hemodialysis for end-stage renal disease. Endocrine: We will proceed with maintaining euvolemia and blood glucose within 140-180 range according to NICE-SUGAR trial. Infectious disease: The patient is afebrile; however, hypothermia predisposes patient to nosocomial infection. Thus, we will proceed with blood culture, urine culture and we will have a low threshold to start patient on antibiotics. I will also have a low threshold for initiation of antibiotics. We will check procalcitonin level. We will continue with deep venous thrombosis and gastrointestinal prophylaxis. ccm time 40 min Mauricio Rubio MD cc: [id number] TT: 08/28/2016 20:18:46 Confirmation # [id number] Dictation # [id number] dn MTDD
[2016-08-28 20:26] LABS: HEMATOCRIT 23.2 % (42.0-52.0)
[2016-08-28 20:27] LABS: ADD MANUAL DIFF? YES
[2016-08-28 21:24] LABS: BAND 16 % (0-2); EOSINOPHIL 1 % (0.0-3.0); METAMYELOCYTE 2 %; MYELOCYTE 1 %; NEUTROPHIL 71 % (50.0-70.0)
[2016-08-28 21:25] LABS: HELMET CELLS SLIGHT; MICROCYTOSIS 1+; OVALOCYTES SLIGHT; PLATELET ESTIMATE NORMAL (NORMAL)
[2016-08-28] MEDS ORDERED: Cefepime 1gm in NS 100ml 1 GM/100 ML BAG IVPB SCH (22:00)
[2016-08-28] MEDS ORDERED: metroNIDAZOLE IV 500 mg/100 ml 500 MG/100 ML BAG IVPB SCH (22:00)
[2016-08-28] MEDS: Meropenem 500 MG in Sodium Chloride 0.9% 100 ML IVPB SCH (22:02)
[2016-08-28] MEDS: levETIRAcetam 1,000 MG in Sodium Chloride 0.9% 100 ML IV SCH (22:03)
--- NOTE | 2016-08-28 22:16 | CARD ---
APPROVED REPORT EKG Measurement Heart [id number] <Conclusion> Sinus rhythm with sinus arrhythmia with 1st degree AV block with occasional premature ventricular complexes Right bundle branch block Inferior infarct, age undetermined Abnormal ECG
--- NOTE | 2016-08-28 22:24 | CARD ---
APPROVED REPORT EKG Measurement Heart [id number] <Conclusion> Atrial fibrillation with a competing junctional pacemaker Right bundle branch block consider Acute inferior injury pattern Anterior ischemia Abnormal ECG
[2016-08-29] MEDS ORDERED: Potassium Chloride 20 mEq 40 MEQ/200 ML BAG IVPB ONE (04:51)
--- NOTE | 2016-08-29 07:29 | RAD ---
HISTORY: [facility] COMPARISON: Earlier same day FINDINGS: LUNGS: There is a left IJ line terminating in the SVC. There is no pneumothorax. Endotracheal and nasogastric tube in satisfactory position. PLEURA: No significant pleural effusion identified, no pneumothorax apparent. CARDIOVASCULAR: Mild cardiomegaly and mild vascular congestion OSSEOUS STRUCTURES: No significant abnormalities. VISUALIZED UPPER ABDOMEN: Normal. OTHER FINDINGS: None. IMPRESSION: Left IJ line in satisfactory position with no pneumothorax
--- NOTE | 2016-08-29 08:59 | RAD ---
HISTORY: Intubation, s/p cardiac arrest COMPARISON: 08/28/2016 FINDINGS: LUNGS: Central lines and tubes are in satisfactory position and unchanged. There is a minimal patchy infiltrate in the right lower lobe adjacent to the hilum PLEURA: No significant pleural effusion identified, no pneumothorax apparent. CARDIOVASCULAR: Normal. OSSEOUS STRUCTURES: No significant abnormalities. VISUALIZED UPPER ABDOMEN: Normal. OTHER FINDINGS: None. IMPRESSION: No change in right lower lobe infiltrate
--- NOTE | 2016-08-29 09:12 | RAD ---
HISTORY: pneumonia COMPARISON: 08/28/2016 FINDINGS: LUNGS: No active pulmonary disease. PLEURA: No significant pleural effusion identified, no pneumothorax apparent. CARDIOVASCULAR: Normal. OSSEOUS STRUCTURES: No significant abnormalities. VISUALIZED UPPER ABDOMEN: Normal. OTHER FINDINGS: The endotracheal tube nasogastric tube are in satisfactory position. There is a right-sided central line with its tip in the inferior aspect of the right atrium. IMPRESSION: The endotracheal tube nasogastric tube are in satisfactory position. There is a right-sided central line with its tip in the inferior aspect of the right atrium.
[2016-08-29] MEDS ORDERED: Sodium Bicarbonate 8.4% 75 MEQ in Dextrose 5% In Water 1,000 ML IV SCH (10:00)
[2016-08-29] MEDS ORDERED: Albuterol-Ipratrop 3 mg / 0.5 (3 ml) UD ONE (13:24)
--- NOTE | 2016-08-29 15:05 | CARD ---
APPROVED REPORT EKG Measurement Heart [id number] <Conclusion> Sinus rhythm with AV dissociation and Accelerated Junctional rhythm Right bundle branch block Inferior infarct, age undetermined Abnormal ECG
--- NOTE | 2016-08-29 15:06 | PN ---
DATE: 08/29/2016 REASON FOR CONSULTATION: Acute ST segment myocardial infarction, primary angioplasty, 2 vessels, RCA and circumflex, status post inferior wall OH. Computer system is down. Dictating from the top of the head. BRIEF CLINICAL HISTORY: This is an 86-year-old male with a history of diabetes 30 years, end-stage r enal disease on dialysis. While patient was at dialysis unit, developed chest pain and suddenly jesenia apsed, witnessed, CPR was done, brought here, defibrillated. The patient regained pulse. Repeat EKG shows AFib, ST segment inferior wall OH. The patient was taken on emergent basis cardiac catheteriz ation and subsequently 2-vessel angioplasty, bare metal stent of RCA as well as circumflex was done. Currently, patient is on a vent, not waking up. Prior to taking to the center medical and lab director, CT scan of the hea d was done, was negative for bleed. PHYSICAL EXAMINATION: VITAL SIGNS: Temperature afebrile, heart rate 86, blood pressure 110/80. HEENT: PERRLA. Extraocular muscles intact. NECK: Supple. No carotid bruits. No thyromegaly. CHEST: Clear to auscultation. HEART: S1, S2 regular. ABDOMEN: Soft. A small amount of blood noted , small amount of blood noted in the central line . IMPRESSION: Status post primary angioplasty, status post cardiopulmonary resuscitation, status post witnessed collapse, status post inferior wall myocardial infarction, status post primary angioplasty of right coronary artery and circumflex, dropping H and H, rule out gastrointestinal bleed, sepsis, s hock, possible cardiogenic as well as rule out septic shock, rule out hypovolemic shock, rule out ano xic encephalopathy. RECOMMENDATION: Continue IV fluid. cannot be done because patient dropped the blood pressure with low temperature. Continue Levophed. Continue, give 2 units of packed red blood cells. Give IV albumin. Wean off the Levophed as blood pressure will tolerate. Continue Dobutrex. Ejection fract ion 35%. We will get echo to assess left ventricular function. We will follow the lab when the syst em is available. Thank you, Dr. Avila, for providing us the opportunity in taking care of the patient. Rojelio Singh MD cc:Milind Avila MD [id number] TT: 08/29/2016 14:23:10 Confirmation # [id number] Dictation # [id number] en
--- NOTE | 2016-08-29 17:42 | CARD ---
APPROVED REPORT EXAM: Two-dimensional and M-mode echocardiogram with Doppler and color Doppler. INDICATION CARDIAC ARREST 2D DIMENSIONS Left Atrium (2D)4.3 (1.6-4.0cm)IVSd1.4 (0.7-1.1cm) LVDd3.9 (3.9-5.9cm)PWd1.2 (0.7-1.1cm) LVDs2.9 (2.5-4.0cm)FS (%) 26.0 % LVEF (%)51.8 (>50%) M-Mode DIMENSIONS Aortic Root2.10 (2.2-3.7cm)Aortic Cusp Exc.1.30 (1.5-2.0cm) Aortic Valve AoV Peak Gquxkxuk142.0cm/Humberto Peak GR.11mmHg Mitral Valve E/A ratio0.0 TDI E/Lateral E'0.0E/Medial E'0.0 Tricuspid Valve TR Peak [id number]/sRAP [id number] Peak Gr.11mmHg [id number] LEFT VENTRICLE The left ventricle is normal size. There is mild to moderate concentric left ventricular hypertrophy. The systolic function is borderline impaired.EF-50% There is mild hypokinesis in the mid-inferolateral wall. Transmitral Doppler flow pattern is Grade II-pseudonormal filling dynamics. No left ventricle thrombus noted on this study. There is no ventricular septal defect visualized. There is no left ventricular aneurysm. There is no mass noted in the left ventricle. RIGHT VENTRICLE The right ventricle is normal size. There is normal right ventricular wall thickness. The right ventricular systolic function is normal. ATRIA The left atrium is mildly dilated. The right atrium size is normal. The interatrial septum is intact with no evidence for an atrial septal defect. AORTIC VALVE The aortic valve is thickened but opens well. The aortic valve is moderately sclerotic. There is trace aortic regurgitation. There is no aortic valvular stenosis. There is no aortic valvular vegetation. MITRAL VALVE The mitral valve is calcified but opens well. Mitral annular calcification is moderate. Mitral regurgitation is trace to mild. There is no mitral valve stenosis. There is no evidence of mitral valve prolapse. TRICUSPID VALVE The tricuspid valve leaflets are thickened , but open well. There is trace tricuspid regurgitation. There is no tricuspid valve stenosis. There is no tricuspid valve prolapse or vegetation. PULMONIC VALVE The pulmonic valve is not well visualized. There is no pulmonic valvular regurgitation. GREAT VESSELS The aortic root is normal in size. The ascending aorta is normal in size. The pulmonary artery is normal. The IVC is dilated. PERICARDIAL EFFUSION There is no pleural effusion. There is no pericardial effusion. <Conclusion> The left ventricle is normal size. There is mild to moderate concentric left ventricular hypertrophy. The systolic function is borderline impaired.EF-50% There is trace aortic regurgitation. Mitral regurgitation is trace to mild. There is trace tricuspid regurgitation. The IVC is dilated. There is no pericardial effusion. TDS,Intubated , Supine, S/p Code STEMI, S/P CPR. S/p PTCA of RCA/CX
[2016-08-29 19:36] LABS: ADD MANUAL DIFF? NO
[2016-08-29] MEDS: Insulin Lispro (humaLOG) MEDIUM Coverage SC SCH (20:23)
[2016-08-29] MEDS ORDERED: Propofol 10 mg/ml 1,000 MG/100 ML VIAL IV PRN (22:27)
--- NOTE | 2016-08-29 22:29 | CP.PCM.PN ---
Subjective - Date & Time of Evaluation Date of Evaluation: 08/29/16 Time of Evaluation: 22:50 - Subjective Subjective: The patient is a 86 year old man with h/o ESRD-DD, who had a cardiac arrest (s/ p defibrillation), inferior wall STEMI (s/p BMS to RCA and circumflex). Patient has been unresponsive post cardiac arrest. The patient reportedly developed intermittent myoclonic jerks throughout the day for which an EEG was done in the morning. Despite being started on Keppra 1gram IV Q12 the myoclonic jerks have continued. The day team was awaiting results of the EEG to determine if the patient required sedation with Propofol drip. Dr. Syed reiterated this information to me in a detailed sign out earlier this evening, including for me to follow-up with neurology consult (Dr. Lowe) regarding results of the EEG. The patients family have become very frustrated because the results of the patient's EEG done in the morning are still pending. I explained to them the likely reasons behind the delay which are due to the [employer] system being down for the previous 24hrs and the resulting confusion from this. I was able to speak via telephone this evening with neurology (Dr. Sunil Lowe) who confirmed that due to the [employer] system outage, he hadn't been able to access any EEG' s to interpret (including MrJocelin Ratliff's) all day. He stated that once the system was fully operational and the results of the EEG were posted, he would then only be able to interpret them. The presumption, is that these EEG results will be available by tomorrow morning and this is when Dr. Lowe plans to see the patient as well. Consequently, I conveyed this information to the family and again reiterated the underlying issues with [employer] being the cause of the confusion. I then discussed the case briefly again via telephone with Dr. Vargas and we both agreed that given the current circumstances (i.e- lack of EEG result to determine if patient is having seizure activity or not), the best plan of action overnight would be to empirically sedate patient with Propofol drip, which will also treat any potential seizure activity. I explained this plan of action and reasoning behind it to the patient's entire family (at bedside) and they demonstrated agreement. Therefore, Propofol drip will be empirically started overnight and continued until the EEG result is posted and/or neurology consult gives further recommendations tomorrow morning. Greatly appreciate both Dr. Bonilla and Chrissy's assistance. This tentative plan will also be conveyed to the morning children's service supervisor (Dr. Landis) as well. Objective - Vital Signs/Intake and Output Vital Signs (last 24 hours): Temp Pulse Resp BP Pulse Ox 97.9 F 94 H 30 H 123/56 L 99 08/29/16 20:07 08/29/16 20:07 08/29/16 20:07 08/29/16 20:07 08/29/16 20:07 - Medications Medications: Current Medications Aspirin (Ecotrin) 81 mg PO DAILY [facility] Atorvastatin Calcium (Lipitor) 80 mg PO DIN [facility] Last Admin: 08/28/16 18:11 Dose: 80 mg Carvedilol (Coreg) 3.125 mg PO BID [facility] Last Admin: 08/28/16 17:45 Dose: Not Given Clopidogrel Bisulfate (Plavix) 75 mg PO DAILY [facility] Heparin Sodium (Porcine) (Heparin) 5,000 units SC Q8H [facility] PRN Reason: Protocol Last Admin: 08/28/16 17:00 Dose: Not Given Propofol (Diprivan) 1,000 mg in 100 mls @ 1.905 mls/hr IV .Q24H PRN; Protocol; 5 MCG/KG/MIN PRN Reason: TITRATE PER MD ORDER Sodium Chloride (Sodium Chloride 0.9%) 1,000 mls @ 150 mls/hr IV .Q6H40M [facility] Last Admin: 08/28/16 18:13 Dose: 150 mls/hr Levetiracetam 1,000 mg/ Sodium (Chloride) 110 mls @ 460 mls/hr IV Q12 [facility] Last Admin: 08/28/16 22:03 Dose: 460 mls/hr Acetaminophen (Ofirmev) 1,000 mg in 100 mls @ 400 mls/hr IVPB Q6H PRN PRN Reason: T more then 99.9 Stop: 08/30/16 16:58 Dobutamine HCl/Dextrose (Dobutamine/Dextrose 5% 500mg/250ml) 500 mg in 250 mls @ 4.763 mls/hr IV .Q24H PRN; Protocol; 2.5 MCG/KG/MIN PRN Reason: TITRATE PER PROTOCOL Last Admin: 08/28/16 17:50 Dose: 4.763 mls/hr Norepinephrine Bitartrate 4 mg (/ Dextrose) 254 mls @ 15.24 mls/hr IV .[id number] PRN; Protocol; 4 MCG/MIN PRN Reason: TITRATE PER MD ORDER Last Titration: 08/28/16 21:45 Dose: 15 mcg/min, 57.15 mls/hr Meropenem 500 mg/ Sodium (Chloride) 100 mls @ 100 mls/hr IVPB Q12 [facility] PRN Reason: Protocol Stop: 09/04/16 19:42 Last Admin: 08/28/16 22:02 Dose: 100 mls/hr Sodium Bicarbonate 75 meq/ (Dextrose) 1,075 mls @ 75 mls/hr IV .[id number] [facility] Propofol (Diprivan) 1,000 mg in 100 mls @ 1.905 mls/hr IV .Q24H PRN; Protocol; 5 MCG/KG/MIN PRN Reason: TITRATE PER MD ORDER Insulin Human Lispro (Humalog Med) 0 units SC Q4H [facility] PRN Reason: Protocol Last Admin: 08/29/16 20:23 Dose: Not Given Pantoprazole Sodium (Protonix Inj) 40 mg IVP DAILY [facility] Last Admin: 08/28/16 18:11 Dose: 40 mg - Labs Labs: 08/28/16 20:05 08/28/16 19:16 PT 15.5 Seconds (9.9-11.8) H 08/28/16 14:05 INR 1.44 (0.93-1.08) H 08/28/16 14:05 APTT 29.0 Seconds (23.7-30.8) 08/28/16 14:05
[2016-08-29] MEDS: levETIRAcetam 1,000 MG in Sodium Chloride 0.9% 100 ML IV SCH (22:31)
[2016-08-29] MEDS: Meropenem 500 MG in Sodium Chloride 0.9% 100 ML IVPB SCH (22:32)
--- NOTE | 2016-08-29 22:52 | CARD ---
APPROVED REPORT EKG Measurement Heart [id number] [id number] <Conclusion> Sinus rhythm with First degree AV Block , Frequent PVCs Right bundle branch block Inferior infarct, age undetermined Abnormal ECG
[2016-08-30] MEDS ORDERED: Propofol 10 mg/ml 1,000 MG/100 ML VIAL IV PRN (00:46)
[2016-08-30] MEDS: Insulin Lispro (humaLOG) MEDIUM Coverage SC SCH ×6 (00:48→20:45)
[2016-08-30] MEDS: Sodium Chloride 0.9% 1,000 ML IV SCH ×2 (00:50→17:57)
[2016-08-30 06:57] LABS: ADD MANUAL DIFF? NO
[2016-08-30] MEDS: DOBUTamine 500mg/250ml D5W 500 MG/250 ML BAG IV PRN (07:00)
[2016-08-30] MEDS ORDERED: Albuterol-Ipratrop 3 mg / 0.5 (3 ml) UD IH PRN (07:07)
[2016-08-30] MEDS: Albuterol-Ipratrop 3 mg / 0.5 (3 ml) UD IH SCH ×3 (07:11→19:35)
[2016-08-30 07:13] LABS: BASO # 0.01 K/mm3 (0.0-2.0); BASO % 0.1 % (0.0-3.0); GRAN # 6.52 (1.4-6.5); GRAN % 88.3 % (50.0-68.0); HEMATOCRIT 25.4 % (42.0-52.0); LYMPH # 0.3 (1.2-3.4); LYMPH % 4.3 % (22.0-35.0); MEAN CELL VOLUME 85.5 fL (80.0-105.0); MEAN PLATELET VOLUME 11.3 fl (7.0-11.0); MONO # 0.5 (0.1-0.6); MONO % 7.3 % (1.0-6.0); PLATELET COUNT 89 10^3/uL (120.0-450.0); RED CELL DISTRIBUTION WIDTH 17.7 % (11.5-14.5); WHITE BLOOD COUNT 7.4 10^3/ul (4.5-11.0)
[2016-08-30 07:29] LABS: ALB/GLOB RATIO 1.1 (1.1-1.8); BILIRUBIN,TOTAL 0.7 mg/dL (0.2-1.3); POTASSIUM 5.2 mmol/L (3.6-5.0)
[2016-08-30 07:41] LABS: CALCIUM 6.9 mg/dL (8.4-10.5)
[2016-08-30] MEDS ORDERED: Vancomycin 1gm in NS 250ml 1 GM/250 ML BAG IVPB STA (08:41)
[2016-08-30] MEDS: Meropenem 500 MG in Sodium Chloride 0.9% 100 ML IVPB SCH ×2 (09:15→22:07)
[2016-08-30] MEDS: levETIRAcetam 1,000 MG in Sodium Chloride 0.9% 100 ML IV SCH ×2 (09:26→22:06)
[2016-08-30] MEDS ORDERED: Sodium Bicarbonate 8.4% 75 MEQ in Dextrose 5% In Water 1,000 ML IV SCH (09:36)
--- NOTE | 2016-08-30 09:48 | RAD ---
HISTORY: intubation, re-eval COMPARISON: 08/29/2016 FINDINGS: LUNGS: No active pulmonary disease. PLEURA: No significant pleural effusion identified, no pneumothorax apparent. CARDIOVASCULAR: Mild cardiomegaly mild vascular congestion OSSEOUS STRUCTURES: No significant abnormalities. VISUALIZED UPPER ABDOMEN: Normal. OTHER FINDINGS: None. IMPRESSION: Mild cardiomegaly and mild vascular congestion
--- NOTE | 2016-08-30 10:00 | RAD ---
HISTORY: FOLLOW UP COMPARISON: Earlier same day FINDINGS: LUNGS: No active pulmonary disease. PLEURA: No significant pleural effusion identified, no pneumothorax apparent. CARDIOVASCULAR: Vascular congestion and right lower lobe perihilar infiltrate unchanged. OSSEOUS STRUCTURES: No significant abnormalities. VISUALIZED UPPER ABDOMEN: Normal. OTHER FINDINGS: Central lines and tubes unchanged IMPRESSION: Vascular congestion right lower lobe infiltrate unchanged
--- NOTE | 2016-08-30 10:40 | PN ---
DATE: 08/30/2016 REASON FOR CONSULTATION AND FOLLOWUP: Acute ST segment myocardial infarction, status post primary an gioplasty 2-vessel, RCA and circumflex, rule out anoxic encephalopathy, status post inferior wall NE. BRIEF CLINICAL HISTORY: This is an 86-year-old male with a past medical history significant for diab etes 30 years, end-stage renal disease on dialysis 6-7 years, who was in dialysis center, suddenly co llapsed, witnessed, brought here. CPR was done. Down time was 10-15 minutes, requiring intubation. After shocking the patient, rhythm shows A-fib, ST elevation NE, 2-[address] elevation inferior lead. Code STEMI was activated. Before taken to the lab coordinator, the patient had a CAT scan done. There was no bleed. The patient was on the vent. Emergency angioplasty of RCA and circ was done. Since then , the patient remained on vent, not too much movement, cannot rule out anoxic encephalopathy. The lucy corona had EEG done yesterday. Family, son, Garrett, are very much concerned and a little bit abrupt ab out no result for EEG is available as of yet, tried to explain 3-4 family members patient's condition , explained update.. PHYSICAL EXAMINATION: VITAL SIGNS: Temperature afebrile, heart rate 92, blood pressure 104/47, remains on vent. NEUROLOGIC: No gag reflex as of now. Both Babinski sign that is plantar reflex unable to elicit HEENT: PERRLA. Extraocular muscles intact. NECK: Supple. No carotid bruit or thyromegaly. CHEST: Clear to auscultation. HEART: S1, S2 regular. ABDOMEN: Soft. EXTREMITIES: Clubbing and cyanosis negative. LABORATORY DATA: Blood workup as follows: WBC 7.4, hemoglobin 8.9, hematocrit 25.4, platelet count 89. Chemistry shows sodium 130, potassium 5.0, chloride 96, carbon dioxide 28, anion gap of 15, BUN 40, creatinine 3.7. IMPRESSION: Status post acute inferior wall myocardial infarction, status post cardiac arrest, statu s post CPR, down more than 10-15 minutes, rule out anoxic encephalopathy on ventilator. Neurological status not responding to painful stimuli. Both Babinski unable to elicit. RECOMMENDATION: Keep off vasopressors as blood pressure is tolerated. Dialysis as needed. Continue aspirin, continue Plavix, status post primary angioplasty of 2 vessels, RCA and circumflex. Continu e aspirin and Plavix. Neurological evaluation. Possible plan is to repeat EEG. We will discuss wit h teletypewriter operator to get in touch with neurology and ____ will talk to the patient's family reference mary rological status. Overall, the patient's condition is critical. Prognosis extremely guarded. We wi ll follow with you. We will wean off as blood pressure is tolerated Dobutrex. Thank you, Dr. Do, for providing us opportunity in taking care of the patient. Wean off first Levo phed and then wean off Dobutrex as blood pressure is tolerated. Repeat EKG: Yesterday EKG shows sin us with first degree AV block with frequent APCs, right bundle branch block. The patient was in A-fi b during CPR first EKG. Later on, the patient converted to normal sinus after the angioplasty of RCA and then patient went back again in A-fib. Now patient is in sinus with APCs. Rojelio Singh MD cc: [id number] TT: 08/30/2016 10:39:48 Confirmation # [id number] Dictation # [id number]
--- NOTE | 2016-08-30 10:44 | PN ---
DATE: 08/30/2016 SUBJECTIVE: The patient is seen in the ICU. He remains unresponsive on mechanical ventilation. The patient underwent code heart yesterday. The patient had acute inferior wall MA. He had 2 bare meta l stents placed. He had a stent placed in the RCA which was responsible for this MA. Remains on Lev ophed and dobutamine. Blood pressure remains low. Blood pressure currently is 108/64. Dialysis was not done yesterday because of acute events, hypotension, acute cardiac arrest. PHYSICAL EXAMINATION: GENERAL: Elderly male lying in bed in the ICU, on mechanical ventilation. VITAL SIGNS: Blood pressure 108/64, heart rate 76, respiratory rate 18 per minute, temperature 97.6. HEENT: Normocephalic, atraumatic. Pupils 2 mm, reactive to light. Positive pallor. NECK: Supple, no JVD. LUNGS: Bilateral equal air entry, bilateral rhonchi, equal expansion. CARDIAC: S1, S2, regular rate and rhythm, no murmur, no rub. ABDOMEN: Obese, distended, soft, nontender, bowel sounds present. EXTREMITIES: Chronic stasis changes, hyperpigmentation of the lower legs, thinning of the skin. INTAKE AND OUTPUT: Not charted. LABORATORY DATA: WBC 8.9, hemoglobin 7.9, hematocrit 23, platelets 130 with 16% bands. Sodium 132, potassium 3.7, chloride 96, CO2 18, BUN 84, creatinine 6.0, glucose 479, calcium 8.0. Blood cultures no growth. CURRENT MEDICATIONS: Coreg, Diprivan on hold, dobutamine, DuoNeb, Ecotrin, heparin 5000 q.8 hours, K eppra 1000 q. 12, Lipitor, meropenem 500 q. 12, Levophed, Tylenol, Plavix, Protonix, vancomycin. ASSESSMENT AND PLAN: An 86-year-old male with history of endstage renal disease, gcl-obkafum-upthtpw nt diabetes mellitus, hypertension, peripheral vascular disease, presented with a witnessed cardiac a rrest. Was found to have inferior 1 myocardial infarction. The patient was resuscitated and intubat ed in the Emergency Room. The patient was code heart, had emergency catheterization, percutaneous tr ansluminal coronary angioplasty and stents, bare metal stents to the right coronary artery and circum flex, patient was started on Integrilin. The patient is continuing to bleed. He is oozing from the catheter site, there is some bleeding from the penis, also the sputum has been blood tinged. Hemoglo bin is down to 7.9 1. Cardiac arrest, inferior wall myocardial infarction, status post primary angioplasty of right cor onary artery and circumflex. 2. Bleeding, secondary to Integrilin, anemia. 3. Severe anemia. 4. Anoxic encephalopathy. 5. Non-insulin dependent diabetes mellitus. 6. Profound hypotension, cardiogenic shock. 7. End-stage renal disease. PLAN: 1. We will attempt to dialyze the patient today, without ultrafiltration. 2. Transfuse 2 units of PRBCs on dialysis. 3. Discuss with cardiology regarding discontinuation of Integrilin? 4. Continue fingersticks monitoring and coverage. 5. Follow up EEG results. 6. Prognosis is guarded. Case is discussed with Dr. Singh, ICU residents, ICU nurses, dialysis nurse. More than 35 minutes spent in the care of this critically ill patient. Meghan Rose MD cc: [phone] TT: 08/30/2016 10:44:22 Confirmation # [id number] Dictation # [id number]
--- NOTE | 2016-08-30 11:44 | CP.PCM.CON ---
History of Present Illness - History of Present Illness History of Present Illness: 86 year old male with PMH of ESRD on HD, HTN, DM, anxiety disorder, right arm A- V fistula, dyslipidemia, osteoarthritis, glaucoma, right eye legally blind, was admitted because of cardiorespiratory arrest and was immediately brought to the ICU and was intubated. Patient was noted to probably have suffered an acute ST elevation inferior wall myocardial infarction. Infectious Diseases consult is called to rule out sepsis in this patient. On CXR, there is minimal patchy infiltrate in the right lower lobe. Full review of systems in unobtainable because the patient continues t be intubated. Review of Systems - Review of Systems Systems not reviewed;Unavailable: Intubated Past Patient History - Infectious Disease Hx of Infectious Diseases: None - Past Social History Smoking Status: Unknown If Ever Smoked - CARDIAC Hx Pacemaker: No - NEUROLOGICAL Hx Paralysis: No - HEENT Hx HEENT Problems: Yes (CHITIMACHA left ear) Hx Blind: Yes (left eye) - RENAL Date of Last Dialysis Treatment: 09/06/15 Hx Renal Failure: Yes - ENDOCRINE/METABOLIC Hx Diabetes Mellitus Type 2: Yes - HEMATOLOGICAL/ONCOLOGICAL Hx Blood Transfusions: No - MUSCULOSKELETAL/RHEUMATOLOGICAL Hx Musculoskeletal Disorders: Yes - GASTROINTESTINAL Hx Gastrointestinal Disorders: Yes (Constipation) - PSYCHIATRIC Hx Emotional Abuse: No Hx Physical Abuse: No Hx Substance Use: No - SURGICAL HISTORY Other/Comment: angioplasty, dialysis access rt arm - ANESTHESIA Hx Anesthesia Reactions: No Hx Malignant Hyperthermia: No Meds Allergies/Adverse Reactions: Allergies Allergy/AdvReac Type Severity Reaction Status Date / Time No Known Allergies Allergy Verified 09/07/15 21:26 - Medications Medications: Current Medications Aspirin (Ecotrin) 81 mg PO DAILY [facility] Atorvastatin Calcium (Lipitor) 80 mg PO DIN [facility] Last Admin: 08/28/16 18:11 Dose: 80 mg Carvedilol (Coreg) 3.125 mg PO BID [facility] Clopidogrel Bisulfate (Plavix) 75 mg PO DAILY [facility] Heparin Sodium (Porcine) (Heparin) 5,000 units SC Q8H [facility] PRN Reason: Protocol Eptifibatide (Integrilin) 75 mg in 100 mls @ 4.953 mls/hr IV .[id number] ALBERTO; 1 MCG/KG/MIN PRN Reason: Protocol Stop: 08/29/16 09:00 Propofol (Diprivan) 1,000 mg in 100 mls @ 1.905 mls/hr IV .Q24H PRN; Protocol; 5 MCG/KG/MIN PRN Reason: TITRATE PER MD ORDER Sodium Chloride (Sodium Chloride 0.9%) 1,000 mls @ 150 mls/hr IV .Q6H40M [facility] Last Admin: 08/28/16 18:13 Dose: 150 mls/hr Levetiracetam 1,000 mg/ Sodium (Chloride) 110 mls @ 460 mls/hr IV Q12 [facility] Acetaminophen (Ofirmev) 1,000 mg in 100 mls @ 400 mls/hr IVPB Q6H PRN PRN Reason: T more then 99.9 Stop: 08/30/16 16:58 Dobutamine HCl/Dextrose (Dobutamine/Dextrose 5% 500mg/250ml) 500 mg in 250 mls @ 4.763 mls/hr IV .Q24H PRN; Protocol; 2.5 MCG/KG/MIN PRN Reason: TITRATE PER PROTOCOL Last Admin: 08/28/16 17:50 Dose: 4.763 mls/hr Insulin Human Regular 100 (units/ Sodium Chloride) 100 mls @ 5 mls/hr IV .Q20H PRN; Protocol; 5 UNITS/HR PRN Reason: TITRATE PER MD ORDER Cefepime HCl (Maxipime 1gm) 1 gm in 100 mls @ 100 mls/hr IVPB Q12 [facility] PRN Reason: Protocol Norepinephrine Bitartrate 4 mg (/ Dextrose) 254 mls @ 15.24 mls/hr IV .[id number] PRN; Protocol; 4 MCG/MIN PRN Reason: TITRATE PER MD ORDER Last Admin: 08/28/16 18:04 Dose: 5 mcg/min, 19.05 mls/hr Metronidazole (Flagyl) 500 mg in 100 mls @ 100 mls/hr IVPB Q8 [facility] PRN Reason: Protocol Pantoprazole Sodium (Protonix Inj) 40 mg IVP DAILY [facility] Last Admin: 08/28/16 18:11 Dose: 40 mg Physical Exam - Constitutional Appears: Other (Intubated and sedated) - ENT Exam Additional comments: ET tube in place; left internal jugular central venous catheter site clean and intact - Neck Exam Neck exam: Negative for: Lymphadenopathy, Meningismus - Cardiovascular Exam Cardiovascular Exam: +S1, +S2 - GI/Abdominal Exam GI & Abdominal Exam: Soft. absent: Tenderness Results - Vital Signs Recent Vital Signs: Last Vital Signs Temp 97.6 F 08/28/16 14:15 Pulse 66 08/28/16 19:07 Resp 14 08/28/16 14:15 BP 72/35 L 08/28/16 19:07 Pulse Ox 96 08/28/16 14:15 - Labs Result Diagrams: 08/30/16 06:30 08/30/16 06:30 Labs: Laboratory Results - last 24 hr 08/28/16 08/28/16 14:40 17:15 pCO2 48 H pO2 126.0 H HCO3 21.0 ABG pH 7.25 L ABG Total CO2 22.5 ABG O2 Saturation 94.6 L ABG Base Excess -6.4 L ABG Potassium 3.9 Sodium 136.0 Chloride 102.0 Glucose 436 H* Lactate 5.4 H* FiO2 60.0 Arterial Blood Potassium 3.9 Blood Type B POSITIVE Antibody Screen Negative BBK History Checked No verified bt Assessment & Plan - Assessment and Plan (Free Text) Plan: Assessment S/P systemic inflammatory response syndrome, probably from cardiorespiratory arrest from acute inferior wall ST elevation myocardial infarction, R/O right lower lober healthcare-associated pneumonia ESRD on HD HTN DM anxiety disorder right arm A-V fistula dyslipidemia osteoarthritis glaucoma right eye legally blind Plan Started patient on intermittent Vancomycin and Merrem (day 2 already) pending final blood, sputum cx results, PCT Overall prognosis is poor Will monitor clinically
[2016-08-30 12:31] LABS: CALCIUM 7.8 mg/dL (8.4-10.5); MAGNESIUM 2.3 mg/dL (1.7-2.2); POTASSIUM 3.5 mmol/L (3.6-5.0)
[2016-08-30 12:54] LABS: ALB/GLOB RATIO 1.2 (1.1-1.8); BILIRUBIN,TOTAL 0.5 mg/dL (0.2-1.3); CALCIUM 7.6 mg/dL (8.4-10.5); PHOSPHOROUS 3.1 mg/dL (2.5-4.5); TOTAL PROTEIN 4.9 g/dL (5.8-8.3)
[2016-08-30 12:55] LABS: MAGNESIUM 2.3 mg/dL (1.7-2.2)
[2016-08-30 13:10] LABS: MAGNESIUM 1.9 mg/dL (1.7-2.2); PHOSPHOROUS 4.1 mg/dL (2.5-4.5)
[2016-08-30] MEDS: NOREPINEPHRINE BIT/0.9 % NACL 4 MG/250 ML BAG IV PRN ×2 (13:35→20:55)
[2016-08-30] MEDS ORDERED: Sodium Chloride 0.9% 1,000 ML IV SCH (13:45)
--- NOTE | 2016-08-30 15:16 | CT ---
PROCEDURE: CT HEAD WITHOUT CONTRAST. HISTORY: re-eval s/p cardiac arrest r/o stroke COMPARISON: 08/28/2016 TECHNIQUE: Axial computed tomography images were obtained through the head/brain without intravenous contrast. Radiation dose: Total exam DLP = 756 mGy-cm. This CT exam was performed using one or more of the following dose reduction techniques: Automated exposure control, adjustment of the mA and/or kV according to patient size, and/or use of iterative reconstruction technique. FINDINGS: HEMORRHAGE: No intracranial hemorrhage. BRAIN: No mass effect or edema. No atrophy or chronic microvascular ischemic changes. VENTRICLES: Unremarkable. No hydrocephalus. CALVARIUM: Unremarkable. PARANASAL SINUSES: Unremarkable as visualized. No significant inflammatory changes. MASTOID AIR CELLS: Unremarkable as visualized. No inflammatory changes. OTHER FINDINGS: None. IMPRESSION: No acute findings
[2016-08-30 15:51] LABS: BASO # 0.01 K/mm3 (0.0-2.0); BASO % 0.2 % (0.0-3.0); GRAN # 4.42 (1.4-6.5); LYMPH # 0.4 (1.2-3.4); LYMPH % 6.8 % (22.0-35.0); MEAN CELL VOLUME 85.2 fL (80.0-105.0); MEAN CORPUSCULAR HGB CONC 35.2 g/dl (31.0-37.0); MEAN PLATELET VOLUME 11.6 fl (7.0-11.0); MONO # 0.4 (0.1-0.6); PLATELET COUNT 86 10^3/uL (120.0-450.0); RED CELL DISTRIBUTION WIDTH 16.5 % (11.5-14.5); WHITE BLOOD COUNT 5.1 10^3/ul (4.5-11.0)
--- NOTE | 2016-08-30 16:12 | CP.CCUPN ---
<Isabela Robbins - Last Filed: 08/30/16 16:01> CCU Subjective - Physician Review Events Since Last Encounter (Free Text): 08/30/16 16:02 Pt s/e at bedside this AM. GLORIAO. Patient's BP improved yesterday evening and his levophed was titrated down. His insulin was D/C'd because his sugars normalized. Patient had return of shaking episodes yesterday afternoon and was placed on propofol after which the episodes resolved. Patient has continued to have a stable BP and the pressors continue to be titrated. Patient's family notes he is more edematous today and want him to be dialized again to take fluid off. Reached out to Dr. Rose who agreed to hemodialize him. Patient remains unresponsive with R pupil fixed and pinpoint, no gag or corneal reflex. Patient is on PRVC of 40% fio2, 5PEEP, set at 25RR but patient is breathing 38, and tidal volume of 350. Patient's hgb is 8.9, responding appropriately to the 2 units PRBC yesterday. CCU Objective - Vital Signs / Intake & Output Vital Signs (Last 4 hours): Vital Signs Pulse BP Pulse Ox 08/30/16 14:52 91 H 119/63 08/30/16 14:22 120/53 L 100 08/30/16 14:07 101 H 117/55 L 100 08/30/16 14:00 99 H 100 08/30/16 13:52 90 105/52 L 100 08/30/16 13:37 89 107/45 L 100 08/30/16 13:20 88 106/46 L 100 08/30/16 13:18 86 87/36 L 100 08/30/16 13:17 88 78/38 L 100 08/30/16 13:12 91 H 81/41 L 100 08/30/16 13:11 93 H 89/39 L 100 08/30/16 13:00 90 100 08/30/16 12:46 99 H 115/47 L 100 08/30/16 12:30 92 H 109/51 L 100 08/30/16 12:15 91 H 94/56 L 100 Intake and Output (Last 8hrs): Intake & Output 08/30/16 08/30/16 08/30/16 06:59 14:59 22:59 Intake Total 3123 79 Output Total 0 Balance 3123 79 Weight 68 kg Intake: IV 3123 79 Left Internal Jugular 3115 Oral 0 Output: Urine 0 Urethral ([place]) 0 Other: # Bowel Movements 0 - Physical Exam Physical Exam Limitations: Positive for: Altered Mental Status Head: Positive for: Atraumatic, Normocephalic Pupils: Positive for: Pinpoint, Other (L eye bulging with hemorrhage in the pupil) Extroacular Muscles: Negative for: EOMI Mouth: Positive for: Dry, Normal Lips, Normal Tounge Nose (External): Positive for: Atraumatic Neck: Positive for: Trachea Midline Respiratory/Chest: Positive for: Clear to Auscultation, Good Air Exchange. Negative for: Wheezes, Rales, Retracting, Rhonchi Cardiovascular: Positive for: Regular Rate and Rhythm, Normal S1, S2. Negative for: Murmurs Abdomen: Positive for: Normal Bowel Sounds. Negative for: Distention, Peritoneal Signs, Rebound Upper Extremity: Positive for: Edema (1+ pitting edema BL), NORMAL PULSES, Capillary Refill < 2s Lower Extremity: Positive for: Edema (trace edema), Capillary Refill < 2 s, Other (non-palpable pedal pulses) Neurological: Positive for: Other (pinpoint non-responsive R pupil, no gag reflex, no corneal reflex, negative babinski's) Skin: Positive for: Warm, Dry, Normal Color Psychiatric: Negative for: Alert, Oriented x 3 - Medications Active Medications: Active Medications Generic Name Dose Route Start Last Admin Trade Name Freq PRN Reason Stop Dose Admin Albuterol/Ipratropium 3 ml 08/30/16 08:00 08/30/16 13:06 Duoneb 3 Mg/0.5 Mg (3 Ml) Ud IH 3 ml [id number] ALBERTO Administration Albuterol/Ipratropium 3 ml 08/30/16 07:07 Duoneb 3 Mg/0.5 Mg (3 Ml) Ud IH Q2H PRN Shortness of Breath Aspirin 81 mg 08/29/16 10:00 08/30/16 09:14 Ecotrin PO 81 mg DAILY ALBERTO Administration Atorvastatin Calcium 80 mg 08/28/16 17:00 08/28/16 18:11 Lipitor PO 80 mg DIN ALBERTO Administration Carvedilol 3.125 mg 08/28/16 18:00 08/30/16 09:14 Coreg PO Not Given BID [facility] Clopidogrel Bisulfate 75 mg 08/29/16 10:00 08/30/16 09:15 Plavix PO 75 mg DAILY ALBERTO Administration Heparin Sodium (Porcine) 5,000 units 08/28/16 17:00 08/30/16 09:14 Heparin SC 5,000 units Q8H ALBERTO Administration Protocol Levetiracetam 1,000 mg/ Sodium 110 mls @ 460 mls/hr 08/28/16 22:00 08/30/16 09:26 Chloride IV 460 mls/hr Q12 ALBERTO Administration Acetaminophen 1,000 mg in 100 mls @ 400 mls/hr 08/28/16 16:57 Ofirmev IVPB 08/30/16 16:58 Q6H PRN T more then 99.9 Dobutamine HCl/Dextrose 500 mg in 250 mls @ 4.763 mls/hr 08/28/16 17:08 08/30 07:00 Dobutamine/Dextrose 5% 500mg/250ml IV 4.763 mls/hr .Q24H PRN Administration TITRATE PER PROTOCOL Protocol 2.5 MCG/KG/MIN Meropenem 500 mg/ Sodium 100 mls @ 100 mls/hr 08/28/16 19:41 08/30/16 09:15 Chloride IVPB 09/04/16 19:42 100 mls/hr Q12 ALBERTO Administration Protocol Propofol 1,000 mg in 100 mls @ 2.04 mls/hr 08/30/16 00:46 Diprivan IV .Q24H PRN TITRATE PER MD ORDER Protocol 5 MCG/KG/MIN NOREPINEPHRINE BIT/0.9 % NACL 4 mg in 250 mls @ 15 mls/hr 08/30/16 13:33 Levophed 4 Mg/ 250 Ml Ns Premixed IV .[id number] PRN TITRATE PER MD ORDER Protocol 4 MCG/MIN Sodium Chloride 1,000 mls @ 150 mls/hr 08/30/16 13:45 08/30/16 13:38 Sodium Chloride 0.9% IV 150 mls/hr .[id number] ALBERTO Administration Insulin Human Lispro 0 units 08/29/16 20:00 08/30/16 12:22 Humalog Med SC 5 units Q4H ALBERTO Administration Protocol Pantoprazole Sodium 40 mg 08/28/16 17:00 08/30/16 09:15 Protonix Inj IVP 40 mg DAILY ALBERTO Administration - Patient Studies Lab Studies: Lab Studies 08/30/16 08/30/16 08/30/16 Range/Units 08:18 07:30 06:30 WBC (4.5-11.0) 10^3/ul RBC (3.5-6.1) 10^6/uL Hgb (14.0-18.0) gm/dL Hct (42.0-52.0) % MCV (80.0-105.0) fL MCH (25.0-35.0) pg MCHC (31.0-37.0) g/dl RDW (11.5-14.5) % Plt Count (120.0-450.0) 10^3/uL MPV (7.0-11.0) fl Gran % (50.0-68.0) % Lymph % (Auto) (22.0-35.0) % [place] % (Auto) (1.0-6.0) % Eos % (Auto) (1.5-5.0) % Baso % (Auto) (0.0-3.0) % Gran # (1.4-6.5) Lymph # (1.2-3.4) [place] # (0.1-0.6) Eos # (0.0-0.7) Baso # (0.0-2.0) K/mm3 pCO2 (35-45) mm/Hg pO2 (80-100) mm/Hg HCO3 (21-28) mmol/L ABG pH (7.35-7.45) ABG Total CO2 (22-28) mmol.L ABG O2 Saturation (95-98) % ABG Base Excess (-2.0-3.0) mmol/L ABG Potassium (3.6-5.2) mmol/L Glucose (75-110) mg/dl Lactate (0.7-2.1) mmol/L FiO2 % Sodium 134 (132-148) mmol/L Potassium 5.2 H (3.6-5.0) mmol/L Chloride 96 L (98-107) mmol/L Carbon Dioxide 28 (21-33) mmol/L Anion Gap 15 (10-20) BUN 41 H (7-21) mg/dL Creatinine 3.7 H (0.5-1.4) mg/dL Est GFR ( Amer) 19 Est GFR (Non-Af Amer) 16 POC Glucose (mg/dL) 274 H (65-110) mg/dL Random Glucose 181 H (70-110) mg/dL Calcium 6.9 L* (8.4-10.5) mg/dL Phosphorus 4.1 (2.5-4.5) mg/dL Magnesium 1.9 (1.7-2.2) mg/dL Total Bilirubin 0.7 (0.2-1.3) mg/dL AST 113 H (15-59) U/L ALT 82 H (7-56) U/L Alkaline Phosphatase 58 (38-133) U/L Total Protein 5.0 L (5.8-8.3) g/dL Albumin 2.6 L (3.0-4.8) g/dL Globulin 2.4 gm/dL Albumin/Globulin Ratio 1.1 (1.1-1.8) Procalcitonin (0.19-0.49) NG/ML Arterial Blood Potassium (3.6-5.2) mmol/L Blood Type Antibody Screen Crossmatch BBK History Checked 08/30/16 08/30/16 08/29/16 Range/Units 06:30 06:09 23:09 WBC 7.4 (4.5-11.0) 10^3/ul RBC 2.97 L (3.5-6.1) 10^6/uL Hgb 8.9 L (14.0-18.0) gm/dL Hct 25.4 L (42.0-52.0) % MCV 85.5 (80.0-105.0) fL MCH 30.0 (25.0-35.0) pg MCHC 35.0 (31.0-37.0) g/dl RDW 17.7 H (11.5-14.5) % Plt Count 89 L (120.0-450.0) 10^3/uL MPV 11.3 H (7.0-11.0) fl Gran % 88.3 H (50.0-68.0) % Lymph % (Auto) 4.3 L (22.0-35.0) % [place] % (Auto) 7.3 H (1.0-6.0) % Eos % (Auto) 0.0 L (1.5-5.0) % Baso % (Auto) 0.1 (0.0-3.0) % Gran # 6.52 H (1.4-6.5) Lymph # 0.3 L (1.2-3.4) [place] # 0.5 (0.1-0.6) Eos # 0.0 (0.0-0.7) Baso # 0.01 (0.0-2.0) K/mm3 pCO2 42 (35-45) mm/Hg pO2 79.0 L (80-100) mm/Hg HCO3 26.0 (21-28) mmol/L ABG pH 7.40 (7.35-7.45) ABG Total CO2 27.3 (22-28) mmol.L ABG O2 Saturation 95.7 (95-98) % ABG Base Excess 1.0 (-2.0-3.0) mmol/L ABG Potassium 4.9 (3.6-5.2) mmol/L Glucose 201 H (75-110) mg/dl Lactate 3.0 H (0.7-2.1) mmol/L FiO2 40.0 % Sodium 134.0 (132-148) mmol/L Potassium (3.6-5.0) mmol/L Chloride 106.0 (98-107) mmol/L Carbon Dioxide (21-33) mmol/L Anion Gap (10-20) BUN (7-21) mg/dL Creatinine (0.5-1.4) mg/dL Est GFR ( Amer) Est GFR (Non-Af Amer) POC Glucose (mg/dL) 148 H (65-110) mg/dL Random Glucose (70-110) mg/dL Calcium (8.4-10.5) mg/dL Phosphorus (2.5-4.5) mg/dL Magnesium (1.7-2.2) mg/dL Total Bilirubin (0.2-1.3) mg/dL AST (15-59) U/L ALT (7-56) U/L Alkaline Phosphatase (38-133) U/L Total Protein (5.8-8.3) g/dL Albumin (3.0-4.8) g/dL Globulin gm/dL Albumin/Globulin Ratio (1.1-1.8) Procalcitonin (0.19-0.49) NG/ML Arterial Blood Potassium 4.9 (3.6-5.2) mmol/L Blood Type Antibody Screen Crossmatch BBK History Checked 08/29/16 08/29/16 08/29/16 Range/Units 19:54 19:05 17:59 WBC (4.5-11.0) 10^3/ul RBC (3.5-6.1) 10^6/uL Hgb (14.0-18.0) gm/dL Hct (42.0-52.0) % MCV (80.0-105.0) fL MCH (25.0-35.0) pg MCHC (31.0-37.0) g/dl RDW (11.5-14.5) % Plt Count (120.0-450.0) 10^3/uL MPV (7.0-11.0) fl Gran % (50.0-68.0) % Lymph % (Auto) (22.0-35.0) % [place] % (Auto) (1.0-6.0) % Eos % (Auto) (1.5-5.0) % Baso % (Auto) (0.0-3.0) % Gran # (1.4-6.5) Lymph # (1.2-3.4) [place] # (0.1-0.6) Eos # (0.0-0.7) Baso # (0.0-2.0) K/mm3 pCO2 (35-45) mm/Hg pO2 (80-100) mm/Hg HCO3 (21-28) mmol/L ABG pH (7.35-7.45) ABG Total CO2 (22-28) mmol.L ABG O2 Saturation (95-98) % ABG Base Excess (-2.0-3.0) mmol/L ABG Potassium (3.6-5.2) mmol/L Glucose (75-110) mg/dl Lactate (0.7-2.1) mmol/L FiO2 % Sodium (132-148) mmol/L Potassium (3.6-5.0) mmol/L Chloride (98-107) mmol/L Carbon Dioxide (21-33) mmol/L Anion Gap (10-20) BUN (7-21) mg/dL Creatinine (0.5-1.4) mg/dL Est GFR ( Amer) Est GFR (Non-Af Amer) POC Glucose (mg/dL) 106 118 H 93 (65-110) mg/dL Random Glucose (70-110) mg/dL Calcium (8.4-10.5) mg/dL Phosphorus (2.5-4.5) mg/dL Magnesium (1.7-2.2) mg/dL Total Bilirubin (0.2-1.3) mg/dL AST (15-59) U/L ALT (7-56) U/L Alkaline Phosphatase (38-133) U/L Total Protein (5.8-8.3) g/dL Albumin (3.0-4.8) g/dL Globulin gm/dL Albumin/Globulin Ratio (1.1-1.8) Procalcitonin (0.19-0.49) NG/ML Arterial Blood Potassium (3.6-5.2) mmol/L Blood Type Antibody Screen Crossmatch BBK History Checked 08/29/16 08/29/16 08/29/16 Range/Units 16:56 15:59 15:07 WBC (4.5-11.0) 10^3/ul RBC (3.5-6.1) 10^6/uL Hgb (14.0-18.0) gm/dL Hct (42.0-52.0) % MCV (80.0-105.0) fL MCH (25.0-35.0) pg MCHC (31.0-37.0) g/dl RDW (11.5-14.5) % Plt Count (120.0-450.0) 10^3/uL MPV (7.0-11.0) fl Gran % (50.0-68.0) % Lymph % (Auto) (22.0-35.0) % [place] % (Auto) (1.0-6.0) % Eos % (Auto) (1.5-5.0) % Baso % (Auto) (0.0-3.0) % Gran # (1.4-6.5) Lymph # (1.2-3.4) [place] # (0.1-0.6) Eos # (0.0-0.7) Baso # (0.0-2.0) K/mm3 pCO2 (35-45) mm/Hg pO2 (80-100) mm/Hg HCO3 (21-28) mmol/L ABG pH (7.35-7.45) ABG Total CO2 (22-28) mmol.L ABG O2 Saturation (95-98) % ABG Base Excess (-2.0-3.0) mmol/L ABG Potassium (3.6-5.2) mmol/L Glucose (75-110) mg/dl Lactate (0.7-2.1) mmol/L FiO2 % Sodium (132-148) mmol/L Potassium (3.6-5.0) mmol/L Chloride (98-107) mmol/L Carbon Dioxide (21-33) mmol/L Anion Gap (10-20) BUN (7-21) mg/dL Creatinine (0.5-1.4) mg/dL Est GFR ( Amer) Est GFR (Non-Af Amer) POC Glucose (mg/dL) 125 H 147 H 112 H (65-110) mg/dL Random Glucose (70-110) mg/dL Calcium (8.4-10.5) mg/dL Phosphorus (2.5-4.5) mg/dL Magnesium (1.7-2.2) mg/dL Total Bilirubin (0.2-1.3) mg/dL AST (15-59) U/L ALT (7-56) U/L Alkaline Phosphatase (38-133) U/L Total Protein (5.8-8.3) g/dL Albumin (3.0-4.8) g/dL Globulin gm/dL Albumin/Globulin Ratio (1.1-1.8) Procalcitonin (0.19-0.49) NG/ML Arterial Blood Potassium (3.6-5.2) mmol/L Blood Type Antibody Screen Crossmatch BBK History Checked 08/29/16 08/29/16 08/29/16 Range/Units 14:29 13:34 12:33 WBC (4.5-11.0) 10^3/ul RBC (3.5-6.1) 10^6/uL Hgb (14.0-18.0) gm/dL Hct (42.0-52.0) % MCV (80.0-105.0) fL MCH (25.0-35.0) pg MCHC (31.0-37.0) g/dl RDW (11.5-14.5) % Plt Count (120.0-450.0) 10^3/uL MPV (7.0-11.0) fl Gran % (50.0-68.0) % Lymph % (Auto) (22.0-35.0) % [place] % (Auto) (1.0-6.0) % Eos % (Auto) (1.5-5.0) % Baso % (Auto) (0.0-3.0) % Gran # (1.4-6.5) Lymph # (1.2-3.4) [place] # (0.1-0.6) Eos # (0.0-0.7) Baso # (0.0-2.0) K/mm3 pCO2 (35-45) mm/Hg pO2 (80-100) mm/Hg HCO3 (21-28) mmol/L ABG pH (7.35-7.45) ABG Total CO2 (22-28) mmol.L ABG O2 Saturation (95-98) % ABG Base Excess (-2.0-3.0) mmol/L ABG Potassium (3.6-5.2) mmol/L Glucose (75-110) mg/dl Lactate (0.7-2.1) mmol/L FiO2 % Sodium (132-148) mmol/L Potassium (3.6-5.0) mmol/L Chloride (98-107) mmol/L Carbon Dioxide (21-33) mmol/L Anion Gap (10-20) BUN (7-21) mg/dL Creatinine (0.5-1.4) mg/dL Est GFR ( Amer) Est GFR (Non-Af Amer) POC Glucose (mg/dL) 108 85 92 (65-110) mg/dL Random Glucose (70-110) mg/dL Calcium (8.4-10.5) mg/dL Phosphorus (2.5-4.5) mg/dL Magnesium (1.7-2.2) mg/dL Total Bilirubin (0.2-1.3) mg/dL AST (15-59) U/L ALT (7-56) U/L Alkaline Phosphatase (38-133) U/L Total Protein (5.8-8.3) g/dL Albumin (3.0-4.8) g/dL Globulin gm/dL Albumin/Globulin Ratio (1.1-1.8) Procalcitonin (0.19-0.49) NG/ML Arterial Blood Potassium (3.6-5.2) mmol/L Blood Type Antibody Screen Crossmatch BBK History Checked 08/29/16 08/29/16 08/29/16 Range/Units 11:24 10:45 10:32 WBC (4.5-11.0) 10^3/ul RBC (3.5-6.1) 10^6/uL Hgb (14.0-18.0) gm/dL Hct (42.0-52.0) % MCV (80.0-105.0) fL MCH (25.0-35.0) pg MCHC (31.0-37.0) g/dl RDW (11.5-14.5) % Plt Count (120.0-450.0) 10^3/uL MPV (7.0-11.0) fl Gran % (50.0-68.0) % Lymph % (Auto) (22.0-35.0) % [place] % (Auto) (1.0-6.0) % Eos % (Auto) (1.5-5.0) % Baso % (Auto) (0.0-3.0) % Gran # (1.4-6.5) Lymph # (1.2-3.4) [place] # (0.1-0.6) Eos # (0.0-0.7) Baso # (0.0-2.0) K/mm3 pCO2 (35-45) mm/Hg pO2 (80-100) mm/Hg HCO3 (21-28) mmol/L ABG pH (7.35-7.45) ABG Total CO2 (22-28) mmol.L ABG O2 Saturation (95-98) % ABG Base Excess (-2.0-3.0) mmol/L ABG Potassium (3.6-5.2) mmol/L Glucose (75-110) mg/dl Lactate (0.7-2.1) mmol/L FiO2 % Sodium 136 (132-148) mmol/L Potassium 4.0 (3.6-5.0) mmol/L Chloride 102 (98-107) mmol/L Carbon Dioxide 22 (21-33) mmol/L Anion Gap 17 (10-20) BUN 63 H (7-21) mg/dL Creatinine 4.7 H (0.5-1.4) mg/dL Est GFR ( Amer) 14 Est GFR (Non-Af Amer) 12 POC Glucose (mg/dL) 107 123 H (65-110) mg/dL Random Glucose 120 H (70-110) mg/dL Calcium 7.6 L (8.4-10.5) mg/dL Phosphorus 3.1 (2.5-4.5) mg/dL Magnesium 2.3 H (1.7-2.2) mg/dL Total Bilirubin 0.5 (0.2-1.3) mg/dL AST 155 H (15-59) U/L ALT 67 H (7-56) U/L Alkaline Phosphatase 58 (38-133) U/L Total Protein 4.9 L (5.8-8.3) g/dL Albumin 2.7 L (3.0-4.8) g/dL Globulin 2.2 gm/dL Albumin/Globulin Ratio 1.2 (1.1-1.8) Procalcitonin (0.19-0.49) NG/ML Arterial Blood Potassium (3.6-5.2) mmol/L Blood Type Antibody Screen Crossmatch BBK History Checked 08/29/16 08/29/16 08/29/16 Range/Units 09:27 08:15 07:58 WBC (4.5-11.0) 10^3/ul RBC (3.5-6.1) 10^6/uL Hgb (14.0-18.0) gm/dL Hct (42.0-52.0) % MCV (80.0-105.0) fL MCH (25.0-35.0) pg MCHC (31.0-37.0) g/dl RDW (11.5-14.5) % Plt Count (120.0-450.0) 10^3/uL MPV (7.0-11.0) fl Gran % (50.0-68.0) % Lymph % (Auto) (22.0-35.0) % [place] % (Auto) (1.0-6.0) % Eos % (Auto) (1.5-5.0) % Baso % (Auto) (0.0-3.0) % Gran # (1.4-6.5) Lymph # (1.2-3.4) [place] # (0.1-0.6) Eos # (0.0-0.7) Baso # (0.0-2.0) K/mm3 pCO2 (35-45) mm/Hg pO2 (80-100) mm/Hg HCO3 (21-28) mmol/L ABG pH (7.35-7.45) ABG Total CO2 (22-28) mmol.L ABG O2 Saturation (95-98) % ABG Base Excess (-2.0-3.0) mmol/L ABG Potassium (3.6-5.2) mmol/L Glucose (75-110) mg/dl Lactate (0.7-2.1) mmol/L FiO2 % Sodium (132-148) mmol/L Potassium (3.6-5.0) mmol/L Chloride (98-107) mmol/L Carbon Dioxide (21-33) mmol/L Anion Gap (10-20) BUN (7-21) mg/dL Creatinine (0.5-1.4) mg/dL Est GFR ( Amer) Est GFR (Non-Af Amer) POC Glucose (mg/dL) 254 H 277 H (65-110) mg/dL Random Glucose (70-110) mg/dL Calcium (8.4-10.5) mg/dL Phosphorus (2.5-4.5) mg/dL Magnesium (1.7-2.2) mg/dL Total Bilirubin (0.2-1.3) mg/dL AST (15-59) U/L ALT (7-56) U/L Alkaline Phosphatase (38-133) U/L Total Protein (5.8-8.3) g/dL Albumin (3.0-4.8) g/dL Globulin gm/dL Albumin/Globulin Ratio (1.1-1.8) Procalcitonin (0.19-0.49) NG/ML Arterial Blood Potassium (3.6-5.2) mmol/L Blood Type B POSITIVE Antibody Screen Negative Crossmatch BBK History Checked Patient has bt 08/29/16 08/29/16 08/29/16 Range/Units 07:02 02:30 02:30 WBC (4.5-11.0) 10^3/ul RBC (3.5-6.1) 10^6/uL Hgb 9.5 L (14.0-18.0) gm/dL Hct 27.0 L (42.0-52.0) % MCV (80.0-105.0) fL MCH (25.0-35.0) pg MCHC (31.0-37.0) g/dl RDW (11.5-14.5) % Plt Count (120.0-450.0) 10^3/uL MPV (7.0-11.0) fl Gran % (50.0-68.0) % Lymph % (Auto) (22.0-35.0) % [place] % (Auto) (1.0-6.0) % Eos % (Auto) (1.5-5.0) % Baso % (Auto) (0.0-3.0) % Gran # (1.4-6.5) Lymph # (1.2-3.4) [place] # (0.1-0.6) Eos # (0.0-0.7) Baso # (0.0-2.0) K/mm3 pCO2 (35-45) mm/Hg pO2 (80-100) mm/Hg HCO3 (21-28) mmol/L ABG pH (7.35-7.45) ABG Total CO2 (22-28) mmol.L ABG O2 Saturation (95-98) % ABG Base Excess (-2.0-3.0) mmol/L ABG Potassium (3.6-5.2) mmol/L Glucose (75-110) mg/dl Lactate (0.7-2.1) mmol/L FiO2 % Sodium 134 (132-148) mmol/L Potassium 3.5 L (3.6-5.0) mmol/L Chloride 99 (98-107) mmol/L Carbon Dioxide 20 L (21-33) mmol/L Anion Gap 19 (10-20) BUN 80 H (7-21) mg/dL Creatinine 6.0 H (0.5-1.4) mg/dL Est GFR ( Amer) 11 Est GFR (Non-Af Amer) 9 POC Glucose (mg/dL) 297 H (65-110) mg/dL Random Glucose 337 H* D (70-110) mg/dL Calcium 7.8 L (8.4-10.5) mg/dL Phosphorus 4.0 (2.5-4.5) mg/dL Magnesium 2.3 H (1.7-2.2) mg/dL Total Bilirubin (0.2-1.3) mg/dL AST (15-59) U/L ALT (7-56) U/L Alkaline Phosphatase (38-133) U/L Total Protein (5.8-8.3) g/dL Albumin (3.0-4.8) g/dL Globulin gm/dL Albumin/Globulin Ratio (1.1-1.8) Procalcitonin (0.19-0.49) NG/ML Arterial Blood Potassium (3.6-5.2) mmol/L Blood Type Antibody Screen Crossmatch BBK History Checked 08/28/16 08/28/16 Range/Units 19:24 14:40 WBC (4.5-11.0) 10^3/ul RBC (3.5-6.1) 10^6/uL Hgb (14.0-18.0) gm/dL Hct (42.0-52.0) % MCV (80.0-105.0) fL MCH (25.0-35.0) pg MCHC (31.0-37.0) g/dl RDW (11.5-14.5) % Plt Count (120.0-450.0) 10^3/uL MPV (7.0-11.0) fl Gran % (50.0-68.0) % Lymph % (Auto) (22.0-35.0) % [place] % (Auto) (1.0-6.0) % Eos % (Auto) (1.5-5.0) % Baso % (Auto) (0.0-3.0) % Gran # (1.4-6.5) Lymph # (1.2-3.4) [place] # (0.1-0.6) Eos # (0.0-0.7) Baso # (0.0-2.0) K/mm3 pCO2 (35-45) mm/Hg pO2 (80-100) mm/Hg HCO3 (21-28) mmol/L ABG pH (7.35-7.45) ABG Total CO2 (22-28) mmol.L ABG O2 Saturation (95-98) % ABG Base Excess (-2.0-3.0) mmol/L ABG Potassium (3.6-5.2) mmol/L Glucose (75-110) mg/dl Lactate (0.7-2.1) mmol/L FiO2 % Sodium (132-148) mmol/L Potassium (3.6-5.0) mmol/L Chloride (98-107) mmol/L Carbon Dioxide (21-33) mmol/L Anion Gap (10-20) BUN (7-21) mg/dL Creatinine (0.5-1.4) mg/dL Est GFR ( Amer) Est GFR (Non-Af Amer) POC Glucose (mg/dL) (65-110) mg/dL Random Glucose (70-110) mg/dL Calcium (8.4-10.5) mg/dL Phosphorus (2.5-4.5) mg/dL Magnesium (1.7-2.2) mg/dL Total Bilirubin (0.2-1.3) mg/dL AST (15-59) U/L ALT (7-56) U/L Alkaline Phosphatase (38-133) U/L Total Protein (5.8-8.3) g/dL Albumin (3.0-4.8) g/dL Globulin gm/dL Albumin/Globulin Ratio (1.1-1.8) Procalcitonin 0.53 H (0.19-0.49) NG/ML Arterial Blood Potassium (3.6-5.2) mmol/L Blood Type B POSITIVE Antibody Screen Negative Crossmatch See Detail BBK History Checked No verified bt Laboratory Results - last 24 hr 08/28/16 08/28/16 08/29/16 14:40 19:24 02:30 WBC RBC Hgb Hct MCV MCH MCHC RDW Plt Count MPV Gran % Lymph % (Auto) [place] % (Auto) Eos % (Auto) Baso % (Auto) Gran # Lymph # [place] # Eos # Baso # pCO2 pO2 HCO3 ABG pH ABG Total CO2 ABG O2 Saturation ABG Base Excess ABG Potassium Glucose Lactate FiO2 Sodium 134 Potassium 3.5 L Chloride 99 Carbon Dioxide 20 L Anion Gap 19 BUN 80 H Creatinine 6.0 H Est GFR ( Amer) 11 Est GFR (Non-Af Amer) 9 POC Glucose (mg/dL) Random Glucose 337 H* D Calcium 7.8 L Phosphorus 4.0 Magnesium 2.3 H Total Bilirubin AST ALT Alkaline Phosphatase Total Protein Albumin Globulin Albumin/Globulin Ratio Procalcitonin 0.53 H Arterial Blood Potassium Blood Type B POSITIVE Antibody Screen Negative Crossmatch See Detail BBK History Checked No verified bt 08/29/16 08/29/16 08/29/16 02:30 07:02 07:58 WBC RBC Hgb 9.5 L Hct 27.0 L MCV MCH MCHC RDW Plt Count MPV Gran % Lymph % (Auto) [place] % (Auto) Eos % (Auto) Baso % (Auto) Gran # Lymph # [place] # Eos # Baso # pCO2 pO2 HCO3 ABG pH ABG Total CO2 ABG O2 Saturation ABG Base Excess ABG Potassium Glucose Lactate FiO2 Sodium Potassium Chloride Carbon Dioxide Anion Gap BUN Creatinine Est GFR ( Amer) Est GFR (Non-Af Amer) POC Glucose (mg/dL) 297 H 277 H Random Glucose Calcium Phosphorus Magnesium Total Bilirubin AST ALT Alkaline Phosphatase Total Protein Albumin Globulin Albumin/Globulin Ratio Procalcitonin Arterial Blood Potassium Blood Type Antibody Screen Crossmatch BBK History Checked 08/29/16 08/29/16 08/29/16 08:15 09:27 10:32 WBC RBC Hgb Hct MCV MCH MCHC RDW Plt Count MPV Gran % Lymph % (Auto) [place] % (Auto) Eos % (Auto) Baso % (Auto) Gran # Lymph # [place] # Eos # Baso # pCO2 pO2 HCO3 ABG pH ABG Total CO2 ABG O2 Saturation ABG Base Excess ABG Potassium Glucose Lactate FiO2 Sodium Potassium Chloride Carbon Dioxide Anion Gap BUN Creatinine Est GFR ( Amer) Est GFR (Non-Af Amer) POC Glucose (mg/dL) 254 H 123 H Random Glucose Calcium Phosphorus Magnesium Total Bilirubin AST ALT Alkaline Phosphatase Total Protein Albumin Globulin Albumin/Globulin Ratio Procalcitonin Arterial Blood Potassium Blood Type B POSITIVE Antibody Screen Negative Crossmatch BBK History Checked Patient has bt 08/29/16 08/29/16 08/29/16 10:45 11:24 12:33 WBC RBC Hgb Hct MCV MCH MCHC RDW Plt Count MPV Gran % Lymph % (Auto) [place] % (Auto) Eos % (Auto) Baso % (Auto) Gran # Lymph # [place] # Eos # Baso # pCO2 pO2 HCO3 ABG pH ABG Total CO2 ABG O2 Saturation ABG Base Excess ABG Potassium Glucose Lactate FiO2 Sodium 136 Potassium 4.0 Chloride 102 Carbon Dioxide 22 Anion Gap 17 BUN 63 H Creatinine 4.7 H Est GFR ( Amer) 14 Est GFR (Non-Af Amer) 12 POC Glucose (mg/dL) 107 92 Random Glucose 120 H Calcium 7.6 L Phosphorus 3.1 Magnesium 2.3 H Total Bilirubin 0.5 AST 155 H ALT 67 H Alkaline Phosphatase 58 Total Protein 4.9 L Albumin 2.7 L Globulin 2.2 Albumin/Globulin Ratio 1.2 Procalcitonin Arterial Blood Potassium Blood Type Antibody Screen Crossmatch BBK History Checked 08/29/16 08/29/16 08/29/16 13:34 14:29 15:07 WBC RBC Hgb Hct MCV MCH MCHC RDW Plt Count MPV Gran % Lymph % (Auto) [place] % (Auto) Eos % (Auto) Baso % (Auto) Gran # Lymph # [place] # Eos # Baso # pCO2 pO2 HCO3 ABG pH ABG Total CO2 ABG O2 Saturation ABG Base Excess ABG Potassium Glucose Lactate FiO2 Sodium Potassium Chloride Carbon Dioxide Anion Gap BUN Creatinine Est GFR ( Amer) Est GFR (Non-Af Amer) POC Glucose (mg/dL) 85 108 112 H Random Glucose Calcium Phosphorus Magnesium Total Bilirubin AST ALT Alkaline Phosphatase Total Protein Albumin Globulin Albumin/Globulin Ratio Procalcitonin Arterial Blood Potassium Blood Type Antibody Screen Crossmatch BBK History Checked 08/29/16 08/29/16 08/29/16 15:59 16:56 17:59 WBC RBC Hgb Hct MCV MCH MCHC RDW Plt Count MPV Gran % Lymph % (Auto) [place] % (Auto) Eos % (Auto) Baso % (Auto) Gran # Lymph # [place] # Eos # Baso # pCO2 pO2 HCO3 ABG pH ABG Total CO2 ABG O2 Saturation ABG Base Excess ABG Potassium Glucose Lactate FiO2 Sodium Potassium Chloride Carbon Dioxide Anion Gap BUN Creatinine Est GFR ( Amer) Est GFR (Non-Af Amer) POC Glucose (mg/dL) 147 H 125 H 93 Random Glucose Calcium Phosphorus Magnesium Total Bilirubin AST ALT Alkaline Phosphatase Total Protein Albumin Globulin Albumin/Globulin Ratio Procalcitonin Arterial Blood Potassium Blood Type Antibody Screen Crossmatch BBK History Checked 08/29/16 08/29/16 08/29/16 19:05 19:54 23:09 WBC RBC Hgb Hct MCV MCH MCHC RDW Plt Count MPV Gran % Lymph % (Auto) [place] % (Auto) Eos % (Auto) Baso % (Auto) Gran # Lymph # [place] # Eos # Baso # pCO2 pO2 HCO3 ABG pH ABG Total CO2 ABG O2 Saturation ABG Base Excess ABG Potassium Glucose Lactate FiO2 Sodium Potassium Chloride Carbon Dioxide Anion Gap BUN Creatinine Est GFR ( Amer) Est GFR (Non-Af Amer) POC Glucose (mg/dL) 118 H 106 148 H Random Glucose Calcium Phosphorus Magnesium Total Bilirubin AST ALT Alkaline Phosphatase Total Protein Albumin Globulin Albumin/Globulin Ratio Procalcitonin Arterial Blood Potassium Blood Type Antibody Screen Crossmatch BBK History Checked 08/30/16 08/30/16 08/30/16 06:09 06:30 06:30 WBC 7.4 RBC 2.97 L Hgb 8.9 L Hct 25.4 L MCV 85.5 MCH 30.0 MCHC 35.0 RDW 17.7 H Plt Count 89 L MPV 11.3 H Gran % 88.3 H Lymph % (Auto) 4.3 L [place] % (Auto) 7.3 H Eos % (Auto) 0.0 L Baso % (Auto) 0.1 Gran # 6.52 H Lymph # 0.3 L [place] # 0.5 Eos # 0.0 Baso # 0.01 pCO2 42 pO2 79.0 L HCO3 26.0 ABG pH 7.40 ABG Total CO2 27.3 ABG O2 Saturation 95.7 ABG Base Excess 1.0 ABG Potassium 4.9 Glucose 201 H Lactate 3.0 H FiO2 40.0 Sodium 134.0 134 Potassium 5.2 H Chloride 106.0 96 L Carbon Dioxide 28 Anion Gap 15 BUN 41 H Creatinine 3.7 H Est GFR ( Amer) 19 Est GFR (Non-Af Amer) 16 POC Glucose (mg/dL) Random Glucose 181 H Calcium 6.9 L* Phosphorus Magnesium Total Bilirubin 0.7 AST 113 H ALT 82 H Alkaline Phosphatase 58 Total Protein 5.0 L Albumin 2.6 L Globulin 2.4 Albumin/Globulin Ratio 1.1 Procalcitonin Arterial Blood Potassium 4.9 Blood Type Antibody Screen Crossmatch BBK History Checked 08/30/16 08/30/16 07:30 08:18 WBC RBC Hgb Hct MCV MCH MCHC RDW Plt Count MPV Gran % Lymph % (Auto) [place] % (Auto) Eos % (Auto) Baso % (Auto) Gran # Lymph # [place] # Eos # Baso # pCO2 pO2 HCO3 ABG pH ABG Total CO2 ABG O2 Saturation ABG Base Excess ABG Potassium Glucose Lactate FiO2 Sodium Potassium Chloride Carbon Dioxide Anion Gap BUN Creatinine Est GFR ( Amer) Est GFR (Non-Af Amer) POC Glucose (mg/dL) 274 H Random Glucose Calcium Phosphorus 4.1 Magnesium 1.9 Total Bilirubin AST ALT Alkaline Phosphatase Total Protein Albumin Globulin Albumin/Globulin Ratio Procalcitonin Arterial Blood Potassium Blood Type Antibody Screen Crossmatch BBK History Checked EKG/Cardiology Studies: Cardiology / EKG Studies 08/29/16 16:30 ELECTROCARDIOGRAM DAILY Comment: Reason For Exam: chest pain 08/30/16 09:36 EKG [ELECTROCARDIOGRAM] Stat Comment: PAF Reason For Exam: s/p PTCA 08/31/16 07:00 ELECTROCARDIOGRAM Routine Comment: s/p PTCA Reason For Exam: CAD PRE OP:: N Does Patient Have a Pacemaker?: No PERFORMING PHYSICIAN/PROVIDER:: Rojelio Singh Fingerstick Blood Sugar Results: 296 Review of Systems - Review of Systems Systems not reviewed;Unavailable: Altered Mental Status Assessment/Plan - Assessment and Plan (Free Text) Assessment: 86M with PMH of CAD s/p multiple stents, ESRD on HD, HTN, NIDDM, L eye blindness , HLD, PVD who presented in Vfib cardiac arrest and underwent a PCI with 2 bare metal stents, was hemodynamically unstable and unresponsive upon presentation to the ICU. Neuro: No significant improvement in neurological status, pupil fixed and non- responsive, no response to painful stimuli, no possible seizure activity today EEG taken today, report pending CT head: no acute hemorrhage Continue keppra for seizure coverage, restart propofol if shakes return follow neuro recs Cardiology: hemodynamically stable this AM on 4mcg of levophed and 5 of dobutamine, increased edema on physical exam ECHO: LVEF 50% with moderate LVH and IVC dilation hgb 8.9 up from 6.9 yesterday AM--responded appropriately to 2 unties PRBC Platelets 89 down from 122 yesterday Continue to monitor continue to titrate down pressors as tolerated Continue IVF maintenance Continue to trend CBC--transfuse with PRBC as needed to keep hgb around 9.0 Continue to monitor platelets could be 2/[address] Rose's recs for hemodialysis to prevent fluid overload follow up cardiology recs Contineu ASA and plavix, ALBERTO, and lipitor. Will give beta blockers and ACEI when more stable Pulmonology: Trial of CPAP was not tolerated due to tachypnea PRVC@ 40% fio2, 5 peep, 25RR (overbreathing at 38 RR this AM), 350TV ABG: ph 7.4, CO2: 42, O2: 79, bicarb 26--improved since yesterday Patient tachypnea improved. respiratory rate currently 28/min. Re-start propofol for tachypnea>30/min CXR: mild cardiovascular congestion and infiltrate Continue to monitor GI: no acute findings, no more signs of colitis Abdominal exam benign Continue to monitor Nephro: hyperkalemia, Cr 3.7 down from 4.7 Continue to follow technical recruiter reccomendations, repeat dialysis for fluid removal today ID: afebrile, no identifiable source of infection, WBC 7.4, procalcitonin mildly elevated: 0.53 ID following--follow their recommendations for antibiotic therapy Continue to monitor vitals and CBC Endo: Patient's glucose at a satisfactory level, insulin drip D/C'd Continue humalog medium SS Continue to monitor Patient seen and discussed with Dr. Ernestina Robbins, PGY1 <Ernestina MCKAY,Cliff H - Last Filed: 08/30/16 17:05> CCU Objective - Vital Signs / Intake & Output Vital Signs (Last 4 hours): Vital Signs Pulse BP Pulse Ox 08/30/16 14:52 91 H 119/63 08/30/16 14:22 120/53 L 100 08/30/16 14:07 101 H 117/55 L 100 08/30/16 14:00 99 H 100 08/30/16 13:52 90 105/52 L 100 08/30/16 13:37 89 107/45 L 100 08/30/16 13:20 88 106/46 L 100 08/30/16 13:18 86 87/36 L 100 08/30/16 13:17 88 78/38 L 100 08/30/16 13:12 91 H 81/41 L 100 08/30/16 13:11 93 H 89/39 L 100 Intake and Output (Last 8hrs): Intake & Output 08/30/16 08/30/16 08/30/16 06:59 14:59 22:59 Intake Total 3123 79 Output Total 0 Balance 3123 79 Weight 149 lb 14.629 oz Intake: IV 3123 79 Left Internal Jugular 3115 Oral 0 Output: Urine 0 Urethral ([place]) 0 Other: # Bowel Movements 0 - Medications Active Medications: Active Medications Generic Name Dose Route Start Last Admin Trade Name Freq PRN Reason Stop Dose Admin Albuterol/Ipratropium 3 ml 08/30/16 08:00 08/30/16 13:06 Duoneb 3 Mg/0.5 Mg (3 Ml) Ud IH 3 ml [id number] ALBERTO Administration Albuterol/Ipratropium 3 ml 08/30/16 07:07 Duoneb 3 Mg/0.5 Mg (3 Ml) Ud IH Q2H PRN Shortness of Breath Aspirin 81 mg 08/29/16 10:00 08/30/16 09:14 Ecotrin PO 81 mg DAILY ALBERTO Administration Atorvastatin Calcium 80 mg 08/28/16 17:00 08/30/16 16:51 Lipitor PO 80 mg DIN ALBERTO Administration Carvedilol 3.125 mg 08/28/16 18:00 08/30/16 09:14 Coreg PO Not Given BID [facility] Clopidogrel Bisulfate 75 mg 08/29/16 10:00 08/30/16 09:15 Plavix PO 75 mg DAILY ALBERTO Administration Heparin Sodium (Porcine) 5,000 units 08/28/16 17:00 08/30/16 16:51 Heparin SC 5,000 units Q8H ALBERTO Administration Protocol Levetiracetam 1,000 mg/ Sodium 110 mls @ 460 mls/hr 08/28/16 22:00 08/30/16 09:26 Chloride IV 460 mls/hr Q12 ALBERTO Administration Dobutamine HCl/Dextrose 500 mg in 250 mls @ 4.763 mls/hr 08/28/16 17:08 08/30 07:00 Dobutamine/Dextrose 5% 500mg/250ml IV 4.763 mls/hr .Q24H PRN Administration TITRATE PER PROTOCOL Protocol 2.5 MCG/KG/MIN Meropenem 500 mg/ Sodium 100 mls @ 100 mls/hr 08/28/16 19:41 08/30/16 09:15 Chloride IVPB 09/04/16 19:42 100 mls/hr Q12 ALBERTO Administration Protocol Propofol 1,000 mg in 100 mls @ 2.04 mls/hr 08/30/16 00:46 Diprivan IV .Q24H PRN TITRATE PER MD ORDER Protocol 5 MCG/KG/MIN NOREPINEPHRINE BIT/0.9 % NACL 4 mg in 250 mls @ 15 mls/hr 08/30/16 13:33 Levophed 4 Mg/ 250 Ml Ns Premixed IV .[id number] PRN TITRATE PER MD ORDER Protocol 4 MCG/MIN Sodium Chloride 1,000 mls @ 150 mls/hr 08/30/16 13:45 08/30/16 13:38 Sodium Chloride 0.9% IV 150 mls/hr .[id number] ALBERTO Administration Insulin Human Lispro 0 units 08/29/16 20:00 08/30/16 16:51 Humalog Med SC 7 units Q4H ALBERTO Administration Protocol Pantoprazole Sodium 40 mg 08/28/16 17:00 08/30/16 09:15 Protonix Inj IVP 40 mg DAILY ALBERTO Administration - Patient Studies Lab Studies: Lab Studies 08/30/16 08/30/16 08/30/16 Range/Units 08:18 07:30 06:30 WBC (4.5-11.0) 10^3/ul RBC (3.5-6.1) 10^6/uL Hgb (14.0-18.0) gm/dL Hct (42.0-52.0) % MCV (80.0-105.0) fL MCH (25.0-35.0) pg MCHC (31.0-37.0) g/dl RDW (11.5-14.5) % Plt Count (120.0-450.0) 10^3/uL MPV (7.0-11.0) fl Gran % (50.0-68.0) % Lymph % (Auto) (22.0-35.0) % [place] % (Auto) (1.0-6.0) % Eos % (Auto) (1.5-5.0) % Baso % (Auto) (0.0-3.0) % Gran # (1.4-6.5) Lymph # (1.2-3.4) [place] # (0.1-0.6) Eos # (0.0-0.7) Baso # (0.0-2.0) K/mm3 pCO2 (35-45) mm/Hg pO2 (80-100) mm/Hg HCO3 (21-28) mmol/L ABG pH (7.35-7.45) ABG Total CO2 (22-28) mmol.L ABG O2 Saturation (95-98) % ABG Base Excess (-2.0-3.0) mmol/L ABG Potassium (3.6-5.2) mmol/L Glucose (75-110) mg/dl Lactate (0.7-2.1) mmol/L FiO2 % Sodium 134 (132-148) mmol/L Potassium 5.2 H (3.6-5.0) mmol/L Chloride 96 L (98-107) mmol/L Carbon Dioxide 28 (21-33) mmol/L Anion Gap 15 (10-20) BUN 41 H (7-21) mg/dL Creatinine 3.7 H (0.5-1.4) mg/dL Est GFR ( Amer) 19 Est GFR (Non-Af Amer) 16 POC Glucose (mg/dL) 274 H (65-110) mg/dL Random Glucose 181 H (70-110) mg/dL Calcium 6.9 L* (8.4-10.5) mg/dL Phosphorus 4.1 (2.5-4.5) mg/dL Magnesium 1.9 (1.7-2.2) mg/dL Total Bilirubin 0.7 (0.2-1.3) mg/dL AST 113 H (15-59) U/L ALT 82 H (7-56) U/L Alkaline Phosphatase 58 (38-133) U/L Total Protein 5.0 L (5.8-8.3) g/dL Albumin 2.6 L (3.0-4.8) g/dL Globulin 2.4 gm/dL Albumin/Globulin Ratio 1.1 (1.1-1.8) Procalcitonin (0.19-0.49) NG/ML Arterial Blood Potassium (3.6-5.2) mmol/L Blood Type Antibody Screen Crossmatch BBK History Checked 08/30/16 08/30/16 08/29/16 Range/Units 06:30 06:09 23:09 WBC 7.4 D (4.5-11.0) 10^3/ul RBC 2.97 L (3.5-6.1) 10^6/uL Hgb 8.9 L (14.0-18.0) gm/dL Hct 25.4 L (42.0-52.0) % MCV 85.5 (80.0-105.0) fL MCH 30.0 (25.0-35.0) pg MCHC 35.0 (31.0-37.0) g/dl RDW 17.7 H (11.5-14.5) % Plt Count 89 L (120.0-450.0) 10^3/uL MPV 11.3 H (7.0-11.0) fl Gran % 88.3 H (50.0-68.0) % Lymph % (Auto) 4.3 L (22.0-35.0) % [place] % (Auto) 7.3 H (1.0-6.0) % Eos % (Auto) 0.0 L (1.5-5.0) % Baso % (Auto) 0.1 (0.0-3.0) % Gran # 6.52 H (1.4-6.5) Lymph # 0.3 L (1.2-3.4) [place] # 0.5 (0.1-0.6) Eos # 0.0 (0.0-0.7) Baso # 0.01 (0.0-2.0) K/mm3 pCO2 42 (35-45) mm/Hg pO2 79.0 L (80-100) mm/Hg HCO3 26.0 (21-28) mmol/L ABG pH 7.40 (7.35-7.45) ABG Total CO2 27.3 (22-28) mmol.L ABG O2 Saturation 95.7 (95-98) % ABG Base Excess 1.0 (-2.0-3.0) mmol/L ABG Potassium 4.9 (3.6-5.2) mmol/L Glucose 201 H (75-110) mg/dl Lactate 3.0 H (0.7-2.1) mmol/L FiO2 40.0 % Sodium 134.0 (132-148) mmol/L Potassium (3.6-5.0) mmol/L Chloride 106.0 (98-107) mmol/L Carbon Dioxide (21-33) mmol/L Anion Gap (10-20) BUN (7-21) mg/dL Creatinine (0.5-1.4) mg/dL Est GFR ( Amer) Est GFR (Non-Af Amer) POC Glucose (mg/dL) 148 H (65-110) mg/dL Random Glucose (70-110) mg/dL Calcium (8.4-10.5) mg/dL Phosphorus (2.5-4.5) mg/dL Magnesium (1.7-2.2) mg/dL Total Bilirubin (0.2-1.3) mg/dL AST (15-59) U/L ALT (7-56) U/L Alkaline Phosphatase (38-133) U/L Total Protein (5.8-8.3) g/dL Albumin (3.0-4.8) g/dL Globulin gm/dL Albumin/Globulin Ratio (1.1-1.8) Procalcitonin (0.19-0.49) NG/ML Arterial Blood Potassium 4.9 (3.6-5.2) mmol/L Blood Type Antibody Screen Crossmatch BBK History Checked 08/29/16 08/29/16 08/29/16 Range/Units 19:54 19:05 17:59 WBC (4.5-11.0) 10^3/ul RBC (3.5-6.1) 10^6/uL Hgb (14.0-18.0) gm/dL Hct (42.0-52.0) % MCV (80.0-105.0) fL MCH (25.0-35.0) pg MCHC (31.0-37.0) g/dl RDW (11.5-14.5) % Plt Count (120.0-450.0) 10^3/uL MPV (7.0-11.0) fl Gran % (50.0-68.0) % Lymph % (Auto) (22.0-35.0) % [place] % (Auto) (1.0-6.0) % Eos % (Auto) (1.5-5.0) % Baso % (Auto) (0.0-3.0) % Gran # (1.4-6.5) Lymph # (1.2-3.4) [place] # (0.1-0.6) Eos # (0.0-0.7) Baso # (0.0-2.0) K/mm3 pCO2 (35-45) mm/Hg pO2 (80-100) mm/Hg HCO3 (21-28) mmol/L ABG pH (7.35-7.45) ABG Total CO2 (22-28) mmol.L ABG O2 Saturation (95-98) % ABG Base Excess (-2.0-3.0) mmol/L ABG Potassium (3.6-5.2) mmol/L Glucose (75-110) mg/dl Lactate (0.7-2.1) mmol/L FiO2 % Sodium (132-148) mmol/L Potassium (3.6-5.0) mmol/L Chloride (98-107) mmol/L Carbon Dioxide (21-33) mmol/L Anion Gap (10-20) BUN (7-21) mg/dL Creatinine (0.5-1.4) mg/dL Est GFR ( Amer) Est GFR (Non-Af Amer) POC Glucose (mg/dL) 106 118 H 93 (65-110) mg/dL Random Glucose (70-110) mg/dL Calcium (8.4-10.5) mg/dL Phosphorus (2.5-4.5) mg/dL Magnesium (1.7-2.2) mg/dL Total Bilirubin (0.2-1.3) mg/dL AST (15-59) U/L ALT (7-56) U/L Alkaline Phosphatase (38-133) U/L Total Protein (5.8-8.3) g/dL Albumin (3.0-4.8) g/dL Globulin gm/dL Albumin/Globulin Ratio (1.1-1.8) Procalcitonin (0.19-0.49) NG/ML Arterial Blood Potassium (3.6-5.2) mmol/L Blood Type Antibody Screen Crossmatch BBK History Checked 08/29/16 08/29/16 08/29/16 Range/Units 17:00 10:45 08:15 WBC 5.1 (4.5-11.0) 10^3/ul RBC 3.17 L (3.5-6.1) 10^6/uL Hgb 9.5 L (14.0-18.0) gm/dL Hct 27.0 L (42.0-52.0) % MCV 85.2 (80.0-105.0) fL MCH 30.0 (25.0-35.0) pg MCHC 35.2 (31.0-37.0) g/dl RDW 16.5 H (11.5-14.5) % Plt Count 86 L (120.0-450.0) 10^3/uL MPV 11.6 H (7.0-11.0) fl Gran % 86.0 H (50.0-68.0) % Lymph % (Auto) 6.8 L (22.0-35.0) % [place] % (Auto) 7.0 H (1.0-6.0) % Eos % (Auto) 0.0 L (1.5-5.0) % Baso % (Auto) 0.2 (0.0-3.0) % Gran # 4.42 (1.4-6.5) Lymph # 0.4 L (1.2-3.4) [place] # 0.4 (0.1-0.6) Eos # 0.0 (0.0-0.7) Baso # 0.01 (0.0-2.0) K/mm3 pCO2 (35-45) mm/Hg pO2 (80-100) mm/Hg HCO3 (21-28) mmol/L ABG pH (7.35-7.45) ABG Total CO2 (22-28) mmol.L ABG O2 Saturation (95-98) % ABG Base Excess (-2.0-3.0) mmol/L ABG Potassium (3.6-5.2) mmol/L Glucose (75-110) mg/dl Lactate (0.7-2.1) mmol/L FiO2 % Sodium 136 (132-148) mmol/L Potassium 4.0 (3.6-5.0) mmol/L Chloride 102 (98-107) mmol/L Carbon Dioxide 22 (21-33) mmol/L Anion Gap 17 (10-20) BUN 63 H (7-21) mg/dL Creatinine 4.7 H (0.5-1.4) mg/dL Est GFR ( Amer) 14 Est GFR (Non-Af Amer) 12 POC Glucose (mg/dL) (65-110) mg/dL Random Glucose 120 H (70-110) mg/dL Calcium 7.6 L (8.4-10.5) mg/dL Phosphorus 3.1 (2.5-4.5) mg/dL Magnesium 2.3 H (1.7-2.2) mg/dL Total Bilirubin 0.5 (0.2-1.3) mg/dL AST 155 H (15-59) U/L ALT 67 H (7-56) U/L Alkaline Phosphatase 58 (38-133) U/L Total Protein 4.9 L (5.8-8.3) g/dL Albumin 2.7 L (3.0-4.8) g/dL Globulin 2.2 gm/dL Albumin/Globulin Ratio 1.2 (1.1-1.8) Procalcitonin (0.19-0.49) NG/ML Arterial Blood Potassium (3.6-5.2) mmol/L Blood Type B POSITIVE Antibody Screen Negative Crossmatch BBK History Checked Patient has bt 08/29/16 08/29/16 08/29/16 Range/Units 07:00 02:30 02:30 WBC 4.4 L D (4.5-11.0) 10^3/ul RBC 2.16 L (3.5-6.1) 10^6/uL Hgb 6.9 L* D 9.5 L (14.0-18.0) gm/dL Hct 19.7 L* 27.0 L (42.0-52.0) % MCV 91.2 (80.0-105.0) fL MCH 31.9 (25.0-35.0) pg MCHC 35.0 (31.0-37.0) g/dl RDW 14.5 (11.5-14.5) % Plt Count 122 (120.0-450.0) 10^3/uL MPV 11.8 H (7.0-11.0) fl Gran % (50.0-68.0) % Lymph % (Auto) (22.0-35.0) % [place] % (Auto) (1.0-6.0) % Eos % (Auto) (1.5-5.0) % Baso % (Auto) (0.0-3.0) % Gran # (1.4-6.5) Lymph # (1.2-3.4) [place] # (0.1-0.6) Eos # (0.0-0.7) Baso # (0.0-2.0) K/mm3 pCO2 (35-45) mm/Hg pO2 (80-100) mm/Hg HCO3 (21-28) mmol/L ABG pH (7.35-7.45) ABG Total CO2 (22-28) mmol.L ABG O2 Saturation (95-98) % ABG Base Excess (-2.0-3.0) mmol/L ABG Potassium (3.6-5.2) mmol/L Glucose (75-110) mg/dl Lactate (0.7-2.1) mmol/L FiO2 % Sodium 134 (132-148) mmol/L Potassium 3.5 L (3.6-5.0) mmol/L Chloride 99 (98-107) mmol/L Carbon Dioxide 20 L (21-33) mmol/L Anion Gap 19 (10-20) BUN 80 H (7-21) mg/dL Creatinine 6.0 H (0.5-1.4) mg/dL Est GFR ( Amer) 11 Est GFR (Non-Af Amer) 9 POC Glucose (mg/dL) (65-110) mg/dL Random Glucose 337 H* D (70-110) mg/dL Calcium 7.8 L (8.4-10.5) mg/dL Phosphorus 4.0 (2.5-4.5) mg/dL Magnesium 2.3 H (1.7-2.2) mg/dL Total Bilirubin (0.2-1.3) mg/dL AST (15-59) U/L ALT (7-56) U/L Alkaline Phosphatase (38-133) U/L Total Protein (5.8-8.3) g/dL Albumin (3.0-4.8) g/dL Globulin gm/dL Albumin/Globulin Ratio (1.1-1.8) Procalcitonin (0.19-0.49) NG/ML Arterial Blood Potassium (3.6-5.2) mmol/L Blood Type Antibody Screen Crossmatch BBK History Checked 08/28/16 08/28/16 Range/Units 19:24 14:40 WBC (4.5-11.0) 10^3/ul RBC (3.5-6.1) 10^6/uL Hgb (14.0-18.0) gm/dL Hct (42.0-52.0) % MCV (80.0-105.0) fL MCH (25.0-35.0) pg MCHC (31.0-37.0) g/dl RDW (11.5-14.5) % Plt Count (120.0-450.0) 10^3/uL MPV (7.0-11.0) fl Gran % (50.0-68.0) % Lymph % (Auto) (22.0-35.0) % [place] % (Auto) (1.0-6.0) % Eos % (Auto) (1.5-5.0) % Baso % (Auto) (0.0-3.0) % Gran # (1.4-6.5) Lymph # (1.2-3.4) [place] # (0.1-0.6) Eos # (0.0-0.7) Baso # (0.0-2.0) K/mm3 pCO2 (35-45) mm/Hg pO2 (80-100) mm/Hg HCO3 (21-28) mmol/L ABG pH (7.35-7.45) ABG Total CO2 (22-28) mmol.L ABG O2 Saturation (95-98) % ABG Base Excess (-2.0-3.0) mmol/L ABG Potassium (3.6-5.2) mmol/L Glucose (75-110) mg/dl Lactate (0.7-2.1) mmol/L FiO2 % Sodium (132-148) mmol/L Potassium (3.6-5.0) mmol/L Chloride (98-107) mmol/L Carbon Dioxide (21-33) mmol/L Anion Gap (10-20) BUN (7-21) mg/dL Creatinine (0.5-1.4) mg/dL Est GFR ( Amer) Est GFR (Non-Af Amer) POC Glucose (mg/dL) (65-110) mg/dL Random Glucose (70-110) mg/dL Calcium (8.4-10.5) mg/dL Phosphorus (2.5-4.5) mg/dL Magnesium (1.7-2.2) mg/dL Total Bilirubin (0.2-1.3) mg/dL AST (15-59) U/L ALT (7-56) U/L Alkaline Phosphatase (38-133) U/L Total Protein (5.8-8.3) g/dL Albumin (3.0-4.8) g/dL Globulin gm/dL Albumin/Globulin Ratio (1.1-1.8) Procalcitonin 0.53 H (0.19-0.49) NG/ML Arterial Blood Potassium (3.6-5.2) mmol/L Blood Type B POSITIVE Antibody Screen Negative Crossmatch See Detail BBK History Checked No verified bt Laboratory Results - last 24 hr 08/28/16 08/28/16 08/29/16 14:40 19:24 02:30 WBC RBC Hgb Hct MCV MCH MCHC RDW Plt Count MPV Gran % Lymph % (Auto) [place] % (Auto) Eos % (Auto) Baso % (Auto) Gran # Lymph # [place] # Eos # Baso # pCO2 pO2 HCO3 ABG pH ABG Total CO2 ABG O2 Saturation ABG Base Excess ABG Potassium Glucose Lactate FiO2 Sodium 134 Potassium 3.5 L Chloride 99 Carbon Dioxide 20 L Anion Gap 19 BUN 80 H Creatinine 6.0 H Est GFR ( Amer) 11 Est GFR (Non-Af Amer) 9 POC Glucose (mg/dL) Random Glucose 337 H* D Calcium 7.8 L Phosphorus 4.0 Magnesium 2.3 H Total Bilirubin AST ALT Alkaline Phosphatase Total Protein Albumin Globulin Albumin/Globulin Ratio Procalcitonin 0.53 H Arterial Blood Potassium Blood Type B POSITIVE Antibody Screen Negative Crossmatch See Detail BBK History Checked No verified bt 08/29/16 08/29/16 08/29/16 02:30 07:00 08:15 WBC 4.4 L D RBC 2.16 L Hgb 9.5 L 6.9 L* D Hct 27.0 L 19.7 L* MCV 91.2 MCH 31.9 MCHC 35.0 RDW 14.5 Plt Count 122 MPV 11.8 H Gran % Lymph % (Auto) [place] % (Auto) Eos % (Auto) Baso % (Auto) Gran # Lymph # [place] # Eos # Baso # pCO2 pO2 HCO3 ABG pH ABG Total CO2 ABG O2 Saturation ABG Base Excess ABG Potassium Glucose Lactate FiO2 Sodium Potassium Chloride Carbon Dioxide Anion Gap BUN Creatinine Est GFR ( Amer) Est GFR (Non-Af Amer) POC Glucose (mg/dL) Random Glucose Calcium Phosphorus Magnesium Total Bilirubin AST ALT Alkaline Phosphatase Total Protein Albumin Globulin Albumin/Globulin Ratio Procalcitonin Arterial Blood Potassium Blood Type B POSITIVE Antibody Screen Negative Crossmatch BBK History Checked Patient has bt 08/29/16 08/29/16 08/29/16 10:45 17:00 17:59 WBC 5.1 RBC 3.17 L Hgb 9.5 L Hct 27.0 L MCV 85.2 MCH 30.0 MCHC 35.2 RDW 16.5 H Plt Count 86 L MPV 11.6 H Gran % 86.0 H Lymph % (Auto) 6.8 L [place] % (Auto) 7.0 H Eos % (Auto) 0.0 L Baso % (Auto) 0.2 Gran # 4.42 Lymph # 0.4 L [place] # 0.4 Eos # 0.0 Baso # 0.01 pCO2 pO2 HCO3 ABG pH ABG Total CO2 ABG O2 Saturation ABG Base Excess ABG Potassium Glucose Lactate FiO2 Sodium 136 Potassium 4.0 Chloride 102 Carbon Dioxide 22 Anion Gap 17 BUN 63 H Creatinine 4.7 H Est GFR ( Amer) 14 Est GFR (Non-Af Amer) 12 POC Glucose (mg/dL) 93 Random Glucose 120 H Calcium 7.6 L Phosphorus 3.1 Magnesium 2.3 H Total Bilirubin 0.5 AST 155 H ALT 67 H Alkaline Phosphatase 58 Total Protein 4.9 L Albumin 2.7 L Globulin 2.2 Albumin/Globulin Ratio 1.2 Procalcitonin Arterial Blood Potassium Blood Type Antibody Screen Crossmatch BBK History Checked 08/29/16 08/29/16 08/29/16 19:05 19:54 23:09 WBC RBC Hgb Hct MCV MCH MCHC RDW Plt Count MPV Gran % Lymph % (Auto) [place] % (Auto) Eos % (Auto) Baso % (Auto) Gran # Lymph # [place] # Eos # Baso # pCO2 pO2 HCO3 ABG pH ABG Total CO2 ABG O2 Saturation ABG Base Excess ABG Potassium Glucose Lactate FiO2 Sodium Potassium Chloride Carbon Dioxide Anion Gap BUN Creatinine Est GFR ( Amer) Est GFR (Non-Af Amer) POC Glucose (mg/dL) 118 H 106 148 H Random Glucose Calcium Phosphorus Magnesium Total Bilirubin AST ALT Alkaline Phosphatase Total Protein Albumin Globulin Albumin/Globulin Ratio Procalcitonin Arterial Blood Potassium Blood Type Antibody Screen Crossmatch BBK History Checked 08/30/16 08/30/16 08/30/16 06:09 06:30 06:30 WBC 7.4 D RBC 2.97 L Hgb 8.9 L Hct 25.4 L MCV 85.5 MCH 30.0 MCHC 35.0 RDW 17.7 H Plt Count 89 L MPV 11.3 H Gran % 88.3 H Lymph % (Auto) 4.3 L [place] % (Auto) 7.3 H Eos % (Auto) 0.0 L Baso % (Auto) 0.1 Gran # 6.52 H Lymph # 0.3 L [place] # 0.5 Eos # 0.0 Baso # 0.01 pCO2 42 pO2 79.0 L HCO3 26.0 ABG pH 7.40 ABG Total CO2 27.3 ABG O2 Saturation 95.7 ABG Base Excess 1.0 ABG Potassium 4.9 Glucose 201 H Lactate 3.0 H FiO2 40.0 Sodium 134.0 134 Potassium 5.2 H Chloride 106.0 96 L Carbon Dioxide 28 Anion Gap 15 BUN 41 H Creatinine 3.7 H Est GFR ( Amer) 19 Est GFR (Non-Af Amer) 16 POC Glucose (mg/dL) Random Glucose 181 H Calcium 6.9 L* Phosphorus Magnesium Total Bilirubin 0.7 AST 113 H ALT 82 H Alkaline Phosphatase 58 Total Protein 5.0 L Albumin 2.6 L Globulin 2.4 Albumin/Globulin Ratio 1.1 Procalcitonin Arterial Blood Potassium 4.9 Blood Type Antibody Screen Crossmatch BBK History Checked 08/30/16 08/30/16 07:30 08:18 WBC RBC Hgb Hct MCV MCH MCHC RDW Plt Count MPV Gran % Lymph % (Auto) [place] % (Auto) Eos % (Auto) Baso % (Auto) Gran # Lymph # [place] # Eos # Baso # pCO2 pO2 HCO3 ABG pH ABG Total CO2 ABG O2 Saturation ABG Base Excess ABG Potassium Glucose Lactate FiO2 Sodium Potassium Chloride Carbon Dioxide Anion Gap BUN Creatinine Est GFR ( Amer) Est GFR (Non-Af Amer) POC Glucose (mg/dL) 274 H Random Glucose Calcium Phosphorus 4.1 Magnesium 1.9 Total Bilirubin AST ALT Alkaline Phosphatase Total Protein Albumin Globulin Albumin/Globulin Ratio Procalcitonin Arterial Blood Potassium Blood Type Antibody Screen Crossmatch BBK History Checked EKG/Cardiology Studies: Cardiology / EKG Studies 08/29/16 16:30 ELECTROCARDIOGRAM DAILY Comment: Reason For Exam: chest pain 08/30/16 09:36 EKG [ELECTROCARDIOGRAM] Stat Comment: PAF Reason For Exam: s/p PTCA 08/31/16 07:00 ELECTROCARDIOGRAM Routine Comment: s/p PTCA Reason For Exam: CAD PRE OP:: N Does Patient Have a Pacemaker?: No PERFORMING PHYSICIAN/PROVIDER:: Rojelio Singh Attending/Attestation - Attestation I have personally seen and examined this patient.: Yes I have fully participated in the care of the patient.: Yes I have reviewed all pertinent clinical information: Yes Notes (Text): 08/30/16 17:02 86 y/o M s/ P cardiac arrest out of hospital. S/P cardaic catherization and 2 BM stent placement . Subsequent Cardiogenic Shock on Levophed and Dobutamine minimal dose ( <5) Yesterday was seen to have some myoclonic jerks . Overnight was on Propofol temp an doff this a.m . EEG x 2 done (SPOT). pending read. Likely slowing prelim. Clinical exam not much change. No corneal, pupilary or GAG reflex. No withdrawl from pain. Does have the ability to overbreath the vent rr rate. Family discussion was taken. Family is aware of the poor state and at this point is post 48 hrs, neuro prognosis can be evalauted. repeat Head ct neg for any new findings. scd DVT P. PPi cc time 75 min
[2016-08-30 16:40] LABS: MEAN CELL VOLUME 91.2 fL (80.0-105.0); MEAN CORPUSCULAR HEMOGLOBIN 31.9 pg (25.0-35.0); MEAN PLATELET VOLUME 11.8 fl (7.0-11.0); RED CELL DISTRIBUTION WIDTH 14.5 % (11.5-14.5); WHITE BLOOD COUNT 4.4 10^3/ul (4.5-11.0)
[2016-08-30 16:43] LABS: HEMATOCRIT 19.7 % (42.0-52.0)
--- NOTE | 2016-08-30 20:19 | EEG ---
DATE: 08/30/2016 2 EEGs CONDITION OF RECORDING: Asleep. DIAGNOSIS: Status post cardiac arrest, altered mental status. MEDICATIONS: Keppra, meropenem, propofol. INTERPRETATION: This is a 16-channel international recording. The background activity was composed of 4-5 cycles per second. There was no evidence of any beta activity of 16-20 cycles per second seen in this recording. There is a very small amount of theta activity 5-7 cycles per second seen in thi s tracing, there was increased amount of delta activity throughout the EEG. Drowsiness was character ized by theta and underlying delta sleep. Sleep was characterized by its sleep spindles and bilatera l slowing. No vertex transient waves. Photic stimulation showed no change in the tracing. No parox ysmal activity noted in this recording. CONCLUSION: This is an abnormal EEG due to presence of diffuse slowing throughout the EEG with delta activity consistent with severe bilateral cerebral dysfunction. No evidence of any epileptiform act ivity on both EEGs. Please clinically correlate. Matthew Lowe MD cc: [id number] TT: 08/30/2016 20:18:23 Confirmation # [id number] Dictation # [id number] [email or web address]
--- NOTE | 2016-08-30 20:55 | PN ---
DATE: 08/30/2016 SUBJECTIVE: The patient is seen in the ICU. He remains on mechanical ventilation. He remains unresponsive. Multiple family members at his bedside. The patient had an EEG done yesterday. He is going for a CT scan of his head right now. The patient has been having myoclonic jerks all day yesterday. He was started on keppra prophylactically. He also appears very swollen. He has increased swelling of his upper extremities and face. He remains Levophed and dobutamine. He remains hypotensive. PHYSICAL EXAMINATION: GENERAL: Elderly male lying in bed in the ICU, on mechanical ventilation. VITAL SIGNS: Blood pressure 117/55, heart rate 76, respiratory rate 24, temperature 97.4. HEENT: Normocephalic, atraumatic, positive pallor. Pupils 2-3 mm, sluggish. NECK: Supple, no JVD. LUNGS: Bilateral equal air entry, bilateral rhonchi, no rales appreciated. CARDIAC: S1, S2, regular rate and rhythm, no murmur, no rub. ABDOMEN: Obese, distended, soft, nontender, bowel sounds present. EXTREMITIES: 2+ pitting edema of the upper extremities, chronic stasis changes in the lower extremities, skin is stretched, tight, shiny. INTAKE AND OUTPUT: 3123/not charted. LABORATORY DATA: WBC 7.4, hemoglobin 8.9, hematocrit 35, platelets 89. Sodium 134, potassium 5.2, chloride 96, CO2 of 28, BUN 41, creatinine 3.7, glucose 181 , calcium 6.9, albumin 2.6, corrected calcium is 7.9, phosphorus 4.1, magnesium 1.9. CURRENT MEDICATIONS: Coreg 3.125 b.i.d. not given, propofol on hold, dobutamine , Ecotrin, heparin, insulin, Keppra 1000 q. 12, Levophed, Lipitor, meropenem, calcium gluconate 1 ampule given. ASSESSMENT: 1. Status post cardiac arrest,s/p acute primary angioplasty and stent of right coronary artery and circumflex. 2. Anoxic encephalopathy. 3. Severe anemia. 4. Non-insulin dependent diabetes mellitus. 5. Hypocalcemia. 6. Myoclonic jerks. PLAN: 1. Ultrafiltration today, remove2-1/2 kilograms. 2. Supportive care, ionotropic support, continue dobutamine and Levophed. 3. Status post 1 unit of blood transfusion yesterday, monitor hemoglobin. 4. Continue empiric Keppra. 5. CT scan of the head. 6. Remains critically ill, prognosis grim. Case discussed with dialysis staff, case discussed with ICU residents, case discussed with Dr. Do. Restrict IV fluids, decrease to 40 mL per hour. More than 35 minutes were spent in the care of this critically ill patient. Meghan Rose MD cc: [id number] TT: 08/30/2016 20:54:31 Confirmation # [id number] Dictation # [id number] helen MARTINI
--- NOTE | 2016-08-30 21:19 | PN ---
DATE: 08/30/2016 SUBJECTIVE: The patient is intubated, not able to communicate with the patient. PHYSICAL EXAMINATION: VITAL SIGNS: Temperature is 97.4, pulse of 81, blood pressure 133/52, respirations 35. GENERAL: The patient comfortable, in no acute distress. HEENT: Anicteric sclerae. Moist mucosa. Positive ETT. NECK: No JVD or adenopathy. CARDIAC: S1/S2. No murmurs. No rubs. Regular. RESPIRATORY: Clear to auscultation bilaterally. No wheezes, rales, or rhonchi. Good air entry. ABDOMEN: Bowel sounds are positive, soft, nontender, and nondistended. EXTREMITIES: No edema. Has 1+ pulses. LABORATORY DATA: White count 7.4, hemoglobin 8.9, creatinine 3.7. ASSESSMENT: 1. Status post code heart. 2. Inferior wall myocardial infarction. 3. End-stage renal disease on hemodialysis. 4. Diabetes type 2. 5. Hypertension. 6. Dyslipidemia. 7. Coronary artery disease. 8. Anoxic encephalopathy. 9. Cardiogenic shock. PLAN: The patient's prognosis is extremely poor, end of life care is ongoing. The patient is on car vedilol, he is on albuterol, he is on heparin for DVT prophylaxis. He is on Keppra for seizure proph ylaxis. The patient is on IV fluids. Remains in the ICU. I did speak to the patient's family to gi ve them an update at the bedside. Allan Paul MD cc: [id number] TT: 08/30/2016 21:19:23 Confirmation # [id number] Dictation # [id number] zaynab
--- NOTE | 2016-08-30 22:03 | CARD ---
APPROVED REPORT EKG Measurement Heart [id number] <Conclusion> Atrial fibrillation with rapid ventricular response Low voltage QRS Incomplete right bundle branch block Cannot rule out Inferior infarct, age undetermined Abnormal ECG
--- NOTE | 2016-08-30 23:20 | CARD ---
APPROVED REPORT EKG Measurement Heart [id number] <Conclusion> Undetermined rhythm, consider A Fib with frequent PVCs vs aberrancy Left axis deviation Right bundle branch block Inferior infarct, age undetermined Abnormal ECG
[2016-08-31] MEDS: Insulin Lispro (humaLOG) MEDIUM Coverage SC SCH ×6 (00:31→20:20)
[2016-08-31] MEDS: Albuterol-Ipratrop 3 mg / 0.5 (3 ml) UD IH SCH ×4 (03:00→19:42)
[2016-08-31 06:02] LABS: HEMATOCRIT 24.6 % (42.0-52.0); MEAN CELL VOLUME 86.9 fL (80.0-105.0); MEAN CORPUSCULAR HEMOGLOBIN 29.3 pg (25.0-35.0); MEAN CORPUSCULAR HGB CONC 33.7 g/dl (31.0-37.0); MEAN PLATELET VOLUME 11.6 fl (7.0-11.0); PLATELET COUNT 104 10^3/uL (120.0-450.0); RED CELL DISTRIBUTION WIDTH 17.2 % (11.5-14.5); WHITE BLOOD COUNT 7.8 10^3/ul (4.5-11.0)
[2016-08-31 06:20] LABS: ALB/GLOB RATIO 1.2 (1.1-1.8); ALKALINE PHOSPHATASE 64 U/L (38-133); ALT/SGPT 76 U/L (7-56); AST/SGOT 91 U/L (15-59); BILIRUBIN,TOTAL 0.6 mg/dL (0.2-1.3); BLOOD UREA NITROGEN 51 mg/dL (7-21); CALCIUM 7.5 mg/dL (8.4-10.5); CARBON DIOXIDE 30 mmol/L (21-33); CHLORIDE 97 mmol/L (98-107); CHOLESTEROL 74 mg/dL (130-200); GFR AFRICAN-AMERICAN 14; GLUCOSE,RANDOM 122 mg/dL (70-110); MAGNESIUM 1.9 mg/dL (1.7-2.2); PHOSPHOROUS 5.1 mg/dL (2.5-4.5); SODIUM 132 mmol/L (132-148); TOTAL PROTEIN 5.1 g/dL (5.8-8.3)
[2016-08-31 06:28] LABS: ADD MANUAL DIFF? YES
[2016-08-31 09:03] LABS: BAND 10 % (0-2); NEUTROPHIL 83 % (50.0-70.0)
[2016-08-31 09:04] LABS: ANISOCYTOSIS 1+; ATYPICAL LYMPHOCYTE 1 % (0.0-0.0); HYPOCHROMIA 2+; PLATELET ESTIMATE SL.DEC (NORMAL); POIKILOCYTOSIS SLIGHT; POLYCHROMASIA SLIGHT
[2016-08-31 09:05] LABS: OVALOCYTES SLIGHT; TEAR DROP CELLS SLIGHT; TOXIC GRANULATION 1+
--- NOTE | 2016-08-31 09:09 | PN ---
DATE: 08/31/2016 Cardiology followup (for Dr. Singh) HISTORY: The patient remains on a ventilator, is unresponsive. PHYSICAL EXAMINATION: VITAL SIGNS: Blood pressure 119/56, heart rate 100, sinus tachycardia. NECK: Negative JVD. LUNGS: Decreased breath sounds bilaterally. HEART: Reveals S1, S2. EXTREMITIES: Without edema. LABORATORY DATA: Hemoglobin is 8.3. Chemistries: The troponin is 25 with a potassium of 5.0. IMPRESSION: 1. Status post cardiac arrest. 2. Respiratory failure. 3. Status post acute inferior wall myocardial infarction. 4. End-stage renal disease. 5. Diabetes mellitus. 6. Status post cardiogenic shock. 7. Probable anoxic encephalopathy. PLAN: Given these findings, the patient is on the supportive care. His overall, prognosis is poor. Pepe Ruffin MD cc: [phone] TT: 08/31/2016 09:08:25 Confirmation # [id number] Dictation # [id number] zaynab
[2016-08-31] MEDS: Sodium Chloride 0.9% 1,000 ML IV SCH (09:13)
[2016-08-31] MEDS: levETIRAcetam 1,000 MG in Sodium Chloride 0.9% 100 ML IV SCH ×3 (10:31→22:21)
[2016-08-31] MEDS: Meropenem 500 MG in Sodium Chloride 0.9% 100 ML IVPB SCH (10:33)
--- NOTE | 2016-08-31 12:17 | CP.PCM.PN ---
Subjective - Date & Time of Evaluation Date of Evaluation: 08/31/16 Time of Evaluation: 09:10 - Subjective Subjective: Patient continues to be on the ventilator and sedated; had one episode of low grade fever 100.4 but did not persist. Objective - Vital Signs/Intake and Output Vital Signs (last 24 hours): Temp Pulse Resp BP Pulse Ox 98.5 F 105 H 25 H 118/61 99 08/31/16 11:44 08/31/16 11:22 08/31/16 04:23 08/31/16 11:22 08/31/16 11:22 Intake and Output: 08/31/16 08/31/16 06:59 18:59 Intake Total 690 44 Output Total 0 0 Balance 690 44 - Medications Medications: Current Medications Albuterol/Ipratropium (Duoneb 3 Mg/0.5 Mg (3 Ml) Ud) 3 ml IH [id number] COUNT INCLUDES THE [facility] Last Admin: 08/31/16 08:16 Dose: 3 ml Albuterol/Ipratropium (Duoneb 3 Mg/0.5 Mg (3 Ml) Ud) 3 ml IH Q2H PRN PRN Reason: Shortness of Breath Aspirin (Ecotrin) 81 mg PO DAILY COUNT INCLUDES THE [facility] Last Admin: 08/31/16 10:40 Dose: 81 mg Atorvastatin Calcium (Lipitor) 80 mg PO DIN COUNT INCLUDES THE [facility] Last Admin: 08/30/16 16:51 Dose: 80 mg Carvedilol (Coreg) 3.125 mg PO BID COUNT INCLUDES THE [facility] Last Admin: 08/31/16 10:40 Dose: 3.125 mg Clopidogrel Bisulfate (Plavix) 75 mg PO DAILY COUNT INCLUDES THE [facility] Last Admin: 08/31/16 10:39 Dose: 75 mg Heparin Sodium (Porcine) (Heparin) 5,000 units SC Q8H ALBERTO PRN Reason: Protocol Last Admin: 08/31/16 10:41 Dose: 5,000 units Levetiracetam 1,000 mg/ Sodium (Chloride) 110 mls @ 460 mls/hr IV Q12 COUNT INCLUDES THE [facility] Last Admin: 08/31/16 10:31 Dose: 460 mls/hr Dobutamine HCl/Dextrose (Dobutamine/Dextrose 5% 500mg/250ml) 500 mg in 250 mls @ 4.763 mls/hr IV .Q24H PRN; Protocol; 2.5 MCG/KG/MIN PRN Reason: TITRATE PER PROTOCOL Last Admin: 08/30/16 07:00 Dose: 4.763 mls/hr Propofol (Diprivan) 1,000 mg in 100 mls @ 2.04 mls/hr IV .Q24H PRN; Protocol; 5 MCG/KG/MIN PRN Reason: TITRATE PER MD ORDER NOREPINEPHRINE BIT/0.9 % NACL (Levophed 4 Mg/ 250 Ml Ns Premixed) 4 mg in 250 mls @ 15 mls/hr IV .[id number] PRN; Protocol; 4 MCG/MIN PRN Reason: TITRATE PER MD ORDER Last Admin: 08/30/16 20:55 Dose: 15 mls/hr Sodium Chloride (Sodium Chloride 0.9%) 1,000 mls @ 40 mls/hr IV .Q24H ALBERTO Last Admin: 08/31/16 09:13 Dose: 40 mls/hr Insulin Human Lispro (Humalog Med) 0 units SC Q4H ALBERTO PRN Reason: Protocol Last Admin: 08/31/16 11:38 Dose: Not Given Pantoprazole Sodium (Protonix Inj) 40 mg IVP DAILY ALBERTO Last Admin: 08/31/16 10:39 Dose: 40 mg - Labs Labs: 08/31/16 05:15 08/31/16 05:15 PT 15.5 Seconds (9.9-11.8) H 08/28/16 14:05 INR 1.44 (0.93-1.08) H 08/28/16 14:05 APTT 29.0 Seconds (23.7-30.8) 08/28/16 14:05 - Constitutional Appears: Other (Intubated and sedated) - ENT Exam Additional comments: Et tube in place - Neck Exam Neck Exam: absent: Lymphadenopathy, Meningismus - Respiratory Exam Respiratory Exam: Decreased Breath Sounds - Cardiovascular Exam Cardiovascular Exam: +S1, +S2 - GI/Abdominal Exam GI & Abdominal Exam: Soft. absent: Tenderness Assessment and Plan - Assessment and Plan (Free Text) Plan: Assessment S/P systemic inflammatory response syndrome, probably from cardiorespiratory arrest from acute inferior wall ST elevation myocardial infarction, R/O right lower lobe healthcare-associated pneumonia ESRD on HD HTN DM anxiety disorder right arm A-V fistula dyslipidemia osteoarthritis glaucoma right eye legally blind Plan Started patient on intermittent Vancomycin and Merrem (day 3 already) pending final blood, sputum cx results (so far negative) Overall prognosis is poor Will continue to monitor clinically
--- NOTE | 2016-08-31 12:48 | PN ---
DATE: 08/31/2016 SUBJECTIVE: The patient is unresponsive on the ventilator. Note that the patient had a cardiac arre st in the field and was brought to the Emergency Room right away. The patient at this time is on stephenie tilator support with FIO2 of 40%. He is off all pressors at this time. His blood pressure is stable with only IV fluids. O2 saturation is 100% with 40% FiO2. PHYSICAL EXAMINATION: VITAL SIGNS: Temperature is 98.5, pulse is 105, respirations are 18, and BP is 118/61. SKIN: Warm and dry. HEAD: Atraumatic, normocephalic. EYES: Barely reactive to light. EARS, NOSE AND THROAT: Seem to be within normal limits. NECK: Supple, no JVD, no thyroid enlargement, no lymph nodes. HEART: Has regular rate and rhythm, normal S1, S2, but tachycardic. LUNGS: Reveal bilateral rhonchi. ABDOMEN: Soft, obese and slightly distended. Decreased bowel sounds. GENITALIA AND RECTAL: Deferred. MUSCULOSKELETAL: No joint deformities. EXTREMITIES: Reveal positive edema. NEUROLOGIC: He is unresponsive on the ventilator. LABORATORY DATA: His white count is 7.8, hemoglobin is 8.3, hematocrit 24.6 with platelets of 120,00 0. PT is 15.5, INR is 1.44. Sodium is 132, potassium 5.0, chloride 97, CO2 of 30 with a BUN of 51, c reatinine of 4.7. Glucose of 122. The patient's troponin is 25.3. IMPRESSION: This patient is post cardiac arrest and at this time has encephalopathy secondary to mos t likely hypoxia and has respiratory failure requiring ventilator support, 40% FIO2. The patient has anemia, right lower lobe pneumonia. He is an end-stage renal disease patient on hemodialysis and ramirez s a history of hypertension, diabetes, as well as anxiety. PLAN: We will continue with DuoNeb as a bronchodilator. The patient is on the ventilator at 40%. W e will continue with aggressive pulmonary toilet. We will follow his chest x-ray and arterial blood gas and continue the antibiotics of meropenem and vancomycin and will continue with the IV fluids. [facility] vitals closely as well as his labs and correct as needed. Andres Macario MD cc: [id number] TT: 08/31/2016 12:47:42 Confirmation # [id number] Dictation # [id number] rn
--- NOTE | 2016-08-31 12:56 | CARD ---
APPROVED REPORT EKG Measurement Heart [id number] <Conclusion> Accelerated Junctional rhythm Low voltage QRS Right bundle branch block Abnormal ECG
--- NOTE | 2016-08-31 13:48 | NM ---
PROCEDURE: Radionuclide brain scan HISTORY: poss extensive anoxic injury COMPARISON: Not available TECHNIQUE: Following the intravenous administration of 15.0 mCi of technetium 99 M pertechnetate, sequential images were obtained in the frontal projection at 2 second intervals for 1 minutes. Following this, static blood pool images were obtained in the frontal and lateral projections pre. Delayed images were obtained at 30 minutes, in the frontal and lateral projection. FINDINGS: There is no definite cerebral perfusion demonstrated. There is flow in what may represent the anterior cerebral arteries on flow phase images. On blood pool images, there is blood flow demonstrated in the superior sagittal sinus and within what is likely the transverse sinuses. Therefore, the examination is not confirmatory for brain despite the absence of demonstrable parenchymal activity on blood pool and delayed images. . Flow in the superior sagittal sinus may indicate some residual cerebral perfusion. IMPRESSION: This examination is not confirmatory for brain
--- NOTE | 2016-08-31 16:16 | CARD ---
APPROVED REPORT EKG Measurement Heart [id number] <Conclusion> Sinus rhythm with sinus arrhythmia with 1st degree AV block Right bundle branch block Inferior infarct, age undetermined Abnormal ECG
--- NOTE | 2016-08-31 18:16 | PN ---
DATE: 08/31/2016 SUBJECTIVE: The patient is seen in the ICU. He is unresponsive. Remains on went. Remains off inot ropic agents at this point. Vital signs improved. Blood pressure 140/70. Son and daughter at [facility]. PHYSICAL EXAMINATION: GENERAL: Elderly male lying in bed in the ICU, on mechanical ventilation. VITAL SIGNS: Blood pressure 140/70, heart rate 86, respiratory rate 18, temperature 98.5, T-max 100. 4. HEENT: Normocephalic, atraumatic. Pupils 2 mm, sluggish. NECK: Supple, no JVD. LUNGS: Bilateral equal air entry, no rales appreciated. CARDIAC: S1, S2, regular rate and rhythm, no murmur, no rub. ABDOMEN: Obese, distended, soft, nontender, bowel sounds present. EXTREMITIES: Chronic stasis changes in the lower extremities, skin is shiny, hairless, 2+ pitting ed denys of the upper extremities. INTAKE AND OUTPUT: 3041/not charted. LABORATORY DATA: WBC 7.8, hemoglobin 8.3, hematocrit 24.6, platelets 104. Sodium 132, potassium 5.0 , chloride 97, CO2 of 30, BUN 51, creatinine 4.7, glucose 122, calcium 7.5, phosphorus 5.1, magnesium 1.9, AST 91, ALT 76. CPK 637, troponin 25, albumin 2.8. Blood flow nuclear medicine showing no definite cerebral perfusion, questionable blood flow demonstra jesse in the superior sagittal sinus, examination not confirmatory of brain . CT scan of the head that was done yesterday: No intracranial hemorrhage. No mass effect or edema. CURRENT MEDICATIONS: Coreg 3.125 b.i.d., DuoNeb, aspirin, heparin, Keppra 1000 q. 12, Lipitor, merop enem 1 gram q. 12, Plavix 75, Protonix, normal saline at 40. ASSESSMENT AND PLAN: An 86-year-old male with history of rtc-[id number]-ejwqmeduv diabetes mellitus, hy pertension, endstage renal disease, peripheral vascular disease, admitted status post cardiac arrest. The patient had a witnessed cardiac arrest in the dialysis unit. The patient was sent to the Emerg ency Room, he was resuscitated, downtime was about 15 minutes. The patient underwent primary angiopl asty and stenting of right circumflex artery. At this time, patient does not seem to have any brain activity. He remains in the ICU, he is on mechanical ventilation. He is hemodynamic parameters have improved somewhat. He was on Levophed and dobutamine which have been discontinued at present. At this time, long discussion is had with the family members who are at bedside. They are still tryi ng to decide and come to a consensus about withdrawal of care. Case is discussed with celeste Calvert thinks patient is brain at this point. Family members still requesting dialysis. The patient will be dialyzed today. Hopefully, they can c ome to a decision. Counseling is provided to the family members. Support is provided to the family members. More than 35 minutes spent in the care of this critically ill patient and coordination of care. Meghan Rose MD cc: [phone] TT: 08/31/2016 18:15:51 Confirmation # [id number] Dictation # [id number] zaynab
--- NOTE | 2016-08-31 19:00 | PN ---
DATE: 08/31/2016 SUBJECTIVE: The patient is an 86-year-old, seen and examined, remains intubated and minimally respon sive, only upon deep suction makes some movement. PHYSICAL EXAMINATION: VITAL SIGNS: He is afebrile, pulse 84, respirations 16, blood pressure 140/60. LUNGS: Bilateral soft crackle diffuse, scattered. HEART: S1, S2 audible. ABDOMEN: Soft, obese, nontender, no rebound, no guarding. NEUROLOGIC: He is unresponsive on vent. LABORATORY: WBC 7.8, hemoglobin 8.3, hematocrit 24.6, platelets 120. PT 15.5, INR 1.44. Chemistry: Sodium 132, potassium 5.0, chloride 97, CO2 of 30, BUN 51, creatinine 4.7, blood sugar of 274, trop onin 25.30. ASSESSMENT AND PLAN: 1. Status post cardiac arrest, status post code heart, status post inferior wall myocardial infarcti on with emergency angioplasty. 2. End-stage renal disease, on hemodialysis. 3. Insulin-dependent diabetes. 4. Hypertension. 5. Hyperlipidemia. 6. Anoxic encephalopathy. PLAN: Currently, he is being tapered down off of Levophed. He is on beta angy, dobutamine. He i s on aspirin. He is getting heparin. He is on Keppra and high dose statin. He is also on meropenem and Plavix. Prognosis is poor. We will follow him closely. Milind Avila MD cc: [phone] TT: 08/31/2016 18:59:40 Confirmation # [id number] Dictation # [id number] mn
[2016-08-31] MEDS: Meropenem 1g/NS 100mL IVPB 1 GM/100 ML PIGGYBACK IVPB SCH (22:21)
[2016-09-01] MEDS: Albuterol-Ipratrop 3 mg / 0.5 (3 ml) UD IH SCH ×4 (01:42→19:47)
[2016-09-01] MEDS: Insulin Lispro (humaLOG) MEDIUM Coverage SC SCH ×5 (04:00→20:10)
[2016-09-01 06:57] LABS: ADD MANUAL DIFF? NO
[2016-09-01 07:16] LABS: BASO # 0.01 K/mm3 (0.0-2.0); BASO % 0.1 % (0.0-3.0); GRAN # 11.76 (1.4-6.5); LYMPH # 0.3 (1.2-3.4); LYMPH % 2.3 % (22.0-35.0); MEAN CELL VOLUME 89.5 fL (80.0-105.0); MEAN CORPUSCULAR HEMOGLOBIN 29.4 pg (25.0-35.0); MEAN CORPUSCULAR HGB CONC 32.9 g/dl (31.0-37.0); MEAN PLATELET VOLUME 12.1 fl (7.0-11.0); MONO # 0.7 (0.1-0.6); MONO % 5.6 % (1.0-6.0); PLATELET COUNT 117 10^3/uL (120.0-450.0); RED CELL DISTRIBUTION WIDTH 16.8 % (11.5-14.5); WHITE BLOOD COUNT 12.8 10^3/ul (4.5-11.0)
[2016-09-01 07:36] LABS: ALB/GLOB RATIO 1.2 (1.1-1.8); BILIRUBIN,TOTAL 0.8 mg/dL (0.2-1.3); CALCIUM 8.3 mg/dL (8.4-10.5); POTASSIUM 4.9 mmol/L (3.6-5.0); TOTAL PROTEIN 5.8 g/dL (5.8-8.3)
[2016-09-01 08:03] LABS: ARTERIAL BLOOD GAS PH 7.37 (7.35-7.45)
[2016-09-01 08:04] LABS: ARTERIAL BLOOD GAS HCO3 26.6 mmol/L (21-28)
[2016-09-01 08:06] LABS: CARBOXYHEMOGLOBIN 0.6 % (0.5-1.5)
[2016-09-01 08:07] LABS: ARTERIAL BLOOD HGB O2 SAT 88.2 % (95.0-98.0); HHB 10.8 % (0-5)
[2016-09-01 08:08] LABS: METHEMOGLOBIN 0.4 % (0.0-3.0)
[2016-09-01] MEDS: levETIRAcetam 1,000 MG in Sodium Chloride 0.9% 100 ML IV SCH ×2 (10:34→22:43)
[2016-09-01] MEDS: Meropenem 1g/NS 100mL IVPB 1 GM/100 ML PIGGYBACK IVPB SCH ×2 (10:35→22:42)
--- NOTE | 2016-09-01 11:05 | PN ---
DATE: 09/01/2016 DATE: 09/01/2016 SUBJECTIVE: The patient is intubated. PHYSICAL EXAMINATION: VITAL SIGNS: Temperature is 98.9, pulse of 105. Blood pressure is 138/69. Respiration is 25. GENERAL: The patient is comfortable, in no acute distress. HEENT: Anicteric sclerae. Moist mucosa. Positive ETT. NECK: No JVD or adenopathy. CARDIAC: S1/S2. No murmurs. No rubs. Regular. RESPIRATORY: Clear to auscultation bilaterally. No wheezes, rales, or rhonchi. Good air entry. ABDOMEN: Bowel sounds are positive, soft, nontender, and nondistended. EXTREMITIES: 1+ edema in the upper extremities. Has 1+ pulses. LABORATORY DATA: White count of 12.8, hemoglobin 9.2. Creatinine is 3.9. ASSESSMENT: 1. Status post cardiac arrest. 2. Inferior wall myocardial infarction. 3. End-stage renal disease, on hemodialysis. 4. Diabetes type 2. 5. Hypertension. 6. Dyslipidemia. 7. Coronary artery disease. 8. Anoxic encephalopathy. 9. Cardiogenic shock. PLAN: The patient remains critically ill, is in the ICU intubated. He is a full code. The patient is continuing to be dialyzed. The patient's family has been updated on the patient's underlying cond ition, which is poor. The patient had cerebral blood flow studies that show no definite cerebral perfusion demonstrated. The patient had an EEG done that was abnormal. There was diffuse slowing throughout the EEG with del ta activity. The patient is on albuterol as an inhaler. He is receiving aspirin. He is going to continue with wilder leos for DVT prophylaxis. He is on Keppra for seizure prophylaxis. He is on meropenem for antibiot ics. He is on Protonix IV. Blood cultures have been negative. He is going to get repeat blood work done. Overall prognosis is poor. Continued end-of-life discussion should be sort with palliative care. Allan Paul MD cc: [phone] TT: 09/01/2016 11:04:34 Confirmation # [id number] Dictation # [id number] jn
--- NOTE | 2016-09-01 12:22 | PN ---
DATE: 09/01/2016 SUBJECTIVE: The patient continues to be unresponsive. Family members are at the bedside. It is not ed that the patient had cardiac arrest in the field and family at this time is considering terminal e xtubation. He is ventilator supported at this time with FiO2 of 40% and a good O2 saturation. PHYSICAL EXAMINATION: VITAL SIGNS: His temperature is 98.9, his pulse is 105, BP is 138/69 and respirations are 20. HEAD: Atraumatic, normocephalic. EYES: Little to no reaction to light. EARS, NOSE AND THROAT: Seemed to be within normal limits. NECK: Supple. No JVD, no thyroid enlargement, no lymph nodes. HEART: Has a regular rate and rhythm, normal S1, S2, mildly tachycardic. LUNGS: Reveal mild rhonchi bilaterally. ABDOMEN: Soft, decreased bowel sounds. GENITALIA AND RECTAL: Deferred. MUSCULOSKELETAL: No joint deformities. EXTREMITIES: Reveal positive lower extremity edema. NEUROLOGIC: He is unresponsive, on the ventilator. LABORATORIES: Reveal a white count of 12.8, hemoglobin of 9.2, hematocrit 28.0 and platelets of 117, 000. His arterial blood gas reveals a pH of 7.37, pCO2 of 46, pO2 of 56. His sodium is 138, potassi um 4.9, chloride 101, CO2 of 27, BUN of 45, creatinine of 3.9 with a glucose of 86. IMPRESSION: The patient is post cardiac arrest with encephalopathy. He has respiratory failure requ iring ventilator support, anemia, pneumonia, end-stage renal disease on hemodialysis, hypertension, d iabetes and a history of anxiety. PLAN: We will continue with DuoNeb bronchodilators. The patient will continue with his ventilator s upport and follow his chest x-ray, arterial blood gas and continue the antibiotics of meropenem and v ancomycin, as well as IV fluids. The patient's family is trying to make a decision whether to termin ally extubate. We will follow closely with them and proceed depending on the decision that they make . Andres Macario MD cc: [id number] TT: 09/01/2016 12:22:07 Confirmation # [id number] Dictation # [id number]
--- NOTE | 2016-09-01 14:03 | CP.PCM.PN ---
Subjective - Date & Time of Evaluation Date of Evaluation: 09/01/16 Time of Evaluation: 10:10 - Subjective Subjective: Continues to be on the ventilator, afebrile overnight. Objective - Vital Signs/Intake and Output Vital Signs (last 24 hours): Temp Pulse Resp BP Pulse Ox 98.9 F 105 H 25 H 138/69 93 L 09/01/16 08:29 09/01/16 08:00 08/31/16 04:23 09/01/16 07:52 09/01/16 08:00 Intake and Output: 09/01/16 09/01/16 06:59 18:59 Intake Total 680 Output Total 2500 Balance -1820 - Medications Medications: Current Medications Acetaminophen (Tylenol 325mg Tab) 650 mg PO Q6H PRN PRN Reason: Fever >100.4 F Albuterol/Ipratropium (Duoneb 3 Mg/0.5 Mg (3 Ml) Ud) 3 ml IH [id number] [facility] Last Admin: 09/01/16 13:43 Dose: 3 ml Albuterol/Ipratropium (Duoneb 3 Mg/0.5 Mg (3 Ml) Ud) 3 ml IH Q2H PRN PRN Reason: Shortness of Breath Aspirin (Ecotrin) 81 mg PO DAILY [facility] Last Admin: 09/01/16 10:32 Dose: 81 mg Atorvastatin Calcium (Lipitor) 80 mg PO DIN [facility] Last Admin: 08/31/16 18:20 Dose: Not Given Carvedilol (Coreg) 3.125 mg PO BID [facility] Last Admin: 08/31/16 18:19 Dose: Not Given Clopidogrel Bisulfate (Plavix) 75 mg PO DAILY [facility] Last Admin: 09/01/16 10:32 Dose: 75 mg Heparin Sodium (Porcine) (Heparin) 5,000 units SC Q8H [facility] PRN Reason: Protocol Last Admin: 09/01/16 10:33 Dose: 5,000 units Levetiracetam 1,000 mg/ Sodium (Chloride) 110 mls @ 460 mls/hr IV Q12 [facility] Last Admin: 09/01/16 10:34 Dose: 460 mls/hr Propofol (Diprivan) 1,000 mg in 100 mls @ 2.04 mls/hr IV .Q24H PRN; Protocol; 5 MCG/KG/MIN PRN Reason: TITRATE PER MD ORDER Meropenem 1g/NS 100mL IVPB (Meropenem 1g/Ns 100ml Ivpb) 1 gm in 100 mls @ 100 mls/hr IVPB Q12 [facility] PRN Reason: Protocol Stop: 09/07/16 22:01 Last Admin: 09/01/16 10:35 Dose: 100 mls/hr Insulin Human Lispro (Humalog Med) 0 units SC Q6H [facility] PRN Reason: Protocol Last Admin: 09/01/16 13:25 Dose: Not Given Pantoprazole Sodium (Protonix Inj) 40 mg IVP DAILY [facility] Last Admin: 09/01/16 10:35 Dose: 40 mg - Labs Labs: 09/01/16 06:55 09/01/16 06:55 PT 15.5 Seconds (9.9-11.8) H 08/28/16 14:05 INR 1.44 (0.93-1.08) H 08/28/16 14:05 APTT 29.0 Seconds (23.7-30.8) 08/28/16 14:05 - Constitutional Appears: Other (Intubated and sedated) - ENT Exam Additional comments: Et tube in place - Neck Exam Neck Exam: absent: Lymphadenopathy, Meningismus - Respiratory Exam Respiratory Exam: Decreased Breath Sounds - Cardiovascular Exam Cardiovascular Exam: +S1, +S2 - GI/Abdominal Exam GI & Abdominal Exam: Soft. absent: Tenderness Assessment and Plan - Assessment and Plan (Free Text) Plan: Assessment S/P systemic inflammatory response syndrome, probably from cardiorespiratory arrest from acute inferior wall ST elevation myocardial infarction consider, right lower lobe healthcare-associated pneumonia ESRD on HD HTN DM anxiety disorder right arm A-V fistula dyslipidemia osteoarthritis glaucoma right eye legally blind Plan continue Merrem (day 4 already); blood, sputum cx results (so far negative) and therefore we have discontinued Vancomycin Overall prognosis is poor Will continue to monitor clinically
[2016-09-02] MEDS: Albuterol-Ipratrop 3 mg / 0.5 (3 ml) UD IH SCH ×4 (01:14→20:44)
[2016-09-02] MEDS: Insulin Lispro (humaLOG) MEDIUM Coverage SC SCH ×4 (01:47→21:22)
[2016-09-02 06:16] LABS: ARTERIAL BLOOD GAS HCO3 22.7 mmol/L (21-28); ARTERIAL BLOOD GAS O2 CAPACITY 11.8 mL/dl (16-24); ARTERIAL BLOOD GAS O2 CONTENT 11.5 ML/dl (15-23); ARTERIAL BLOOD GAS PH 7.42 (7.35-7.45); ARTERIAL BLOOD HGB O2 SAT 96.8 % (95.0-98.0); CARBOXYHEMOGLOBIN 0 % (0.5-1.5); HHB 2.9 % (0-5); METHEMOGLOBIN 0.2 % (0.0-3.0)
[2016-09-02 06:44] LABS: ADD MANUAL DIFF? NO
[2016-09-02 07:00] LABS: EOS % 0.1 % (1.5-5.0); GRAN # 11.14 (1.4-6.5); GRAN % 90.1 % (50.0-68.0); HEMATOCRIT 26.4 % (42.0-52.0); LYMPH # 0.3 (1.2-3.4); LYMPH % 2.3 % (22.0-35.0); MEAN CELL VOLUME 90.4 fL (80.0-105.0); MEAN CORPUSCULAR HEMOGLOBIN 30.1 pg (25.0-35.0); MEAN CORPUSCULAR HGB CONC 33.3 g/dl (31.0-37.0); MEAN PLATELET VOLUME 11.8 fl (7.0-11.0); MONO # 0.9 (0.1-0.6); MONO % 7.5 % (1.0-6.0); PLATELET COUNT 132 10^3/uL (120.0-450.0); RED CELL DISTRIBUTION WIDTH 16.3 % (11.5-14.5); WHITE BLOOD COUNT 12.4 10^3/ul (4.5-11.0)
--- NOTE | 2016-09-02 07:14 | RAD ---
HISTORY: Intubated COMPARISON: 08/30/2016 FINDINGS: LUNGS: In situ ETT, tip which lies approximately 4.5 cm above julio cesar. Left IJ central venous line with tip in the SVC/RA junction NGT tip of which overlies left parasagittal upper abdomen . Mild venous congestion with bibasilar atelectasis. Suspect small bilateral effusions PLEURA: No significant pleural effusion identified, no pneumothorax apparent. CARDIOVASCULAR: Cardiomegaly OSSEOUS STRUCTURES: No significant abnormalities. VISUALIZED UPPER ABDOMEN: Normal. OTHER FINDINGS: None. IMPRESSION: Support lines and tubes as above Cardiomegaly. No Mild venous congestion with bibasilar atelectasis. Suspect small bilateral effusions
[2016-09-02 07:19] LABS: ALB/GLOB RATIO 1.1 (1.1-1.8); BILIRUBIN,TOTAL 0.8 mg/dL (0.2-1.3); CALCIUM 8.1 mg/dL (8.4-10.5); POTASSIUM 5.1 mmol/L (3.6-5.0); TOTAL PROTEIN 5.5 g/dL (5.8-8.3)
--- NOTE | 2016-09-02 08:34 | CON ---
DATE: 08/30/2016 CHIEF COMPLAINT: Status post cardiac arrest and cause of altered mental status. HISTORY OF PRESENT ILLNESS: This is an 86-year-old man with a past medical history of end-stage cathie l disease on hemodialysis, hypertension, diabetes, anxiety disorder, right arm fistula, dyslipidemia, osteoarthritis, glaucoma, right eye legally blind, chronic ischemic changes in the lower extremities , admitted status post cardiorespiratory arrest. He was immediately brought to the ICU, intubated, n ow on sedation and was found to have suffered an acute ST elevation inferior wall [place] and was interven ed by cardiology and some patchy infiltrates in right lobe, indicating right lower lobe . His b lood pressures are improved and he his Levophed was being titrated down. He is able to trigger the v ent, but the patient remains unresponsive with the right pupil fixed and pinpoint, no gag, no corneal reflex. EEG showed diffuse delta waves indicating a deep coma, but is mildly reactive. The patient is not completely brain , though with calorics showed no response. No doll's eye effect. The c ase discussed with the family member at bedside and with the whole team. The patient's hemoglobin wa s 8.9 responding appropriately to the 2 units of PRBCs yesterday. Awaiting the patient's nuclear per fusion scan, which has been ordered. The patient does not withdraw to localized noxious stimulus. PAST MEDICAL HISTORY: History of end-stage renal disease on hemodialysis, hypertension, diabetes, an xiety disorder, right arm AV fistula, dyslipidemia, osteoarthritis, glaucoma, right eye legally blind . REVIEW OF SYSTEMS: Unable to obtain due to the patient's mental status. ALLERGIES: No known drug allergies. MEDICATIONS: Reviewed via nurses' reconciliation sheet. SOCIAL HISTORY: No illicit drug use, smoking, or ETOH abuse. FAMILY HISTORY: Noncontributory. PHYSICAL EXAMINATION: VITAL SIGNS: Temperature afebrile, pulse rate of 81, blood pressure 126/51, oxygen saturation 99%. GENERAL: The patient is intubated, on no sedation, in no acute distress. HEENT: Atraumatic, normocephalic. Right eye pupil is fixed and pinpoint. No corneal and no gag ref rose. NECK: Supple, no JVD, no adenopathy noted. HEART: S1, S2, normal rate and rhythm. No murmurs, rubs, or gallops. ABDOMEN: Soft, nontender, nondistended. Bowel sounds are present. EXTREMITIES: No clubbing, no cyanosis. Peripheral pulses 2+ felt bilaterally. NEUROLOGIC: The patient is comatose with no corneal and no gag reflex. No doll's eye movement. Maxx orics showed no response. The patient does not withdraw to localized noxious stimulus. No spontaneo us movement of the extremities. Toes are upgoing bilaterally. DTRs are 1+ throughout and absent at the ankles and knees. Coordination and gait deferred for now. LABORATORY DATA: Sodium 134, potassium 5.2, chloride 96, carbon dioxide 28, BUN of 141, creatinine 3 .7, random glucose of 181. ASSESSMENT AND PLAN: This is an 86-year-old man with a past medical history of end-stage renal disea se on hemodialysis, hypertension, dyslipidemia, diabetes, anxiety disorder, right arm AV fistula, ost eoarthritis, glaucoma, right eye legally blind, who was admitted status post cardiorespiratory arrest , found to have an acute ST elevation, which was intervened by cardiology and is now status post patc hy infiltrates in the right lower lobe, being on antibiotics per ID. I was consulted for change in m ental status, prognosis and treatment. He has corneal, no gag, no spontaneous movements. Does not w ithdraw to localized noxious stimulus. He does trigger the vent, but otherwise negative calorics. N o doll's eye movement. His EEG showed delta sleep indicating coma. He did have some myoclonic jerks , which are indicating poor prognosis. At this time, given my clinical examination and the mood of h is status post cardiorespiratory arrest, I feel like this patient's prognosis is poor to return for a meaningful recovery. The case was discussed with family at bedside. Will recommend a nuclear perf usion scan and await for the family to go ahead with the process of comfort measures. Thank you for this consult. Matthew Lowe MD cc: [phone] TT: 08/30/2016 20:30:10 Confirmation # [id number] Dictation # [id number] [email or web address]
[2016-09-02 09:04] LABS: MAGNESIUM 2.4 mg/dL (1.7-2.2)
[2016-09-02] MEDS: Meropenem 1g/NS 100mL IVPB 1 GM/100 ML PIGGYBACK IVPB SCH ×2 (09:35→21:32)
[2016-09-02] MEDS: levETIRAcetam 1,000 MG in Sodium Chloride 0.9% 100 ML IV SCH ×2 (09:40→21:32)
--- NOTE | 2016-09-02 13:09 | PN ---
DATE: 09/02/2016 SUBJECTIVE: The patient is an 86-year-old, seen and examined. Remains intubated, minimally responsi ve, on vent. PHYSICAL EXAMINATION: VITAL SIGNS: Temperature of 100.2, pulse 97, respirations 20, blood pressure 156/62. LUNGS: Bilateral soft crackles scattered. HEART: S1, S2 audible. ABDOMEN: Soft, obese. NEUROLOGIC: He is sedated. EXTREMITIES: Bilateral legs, no edema. LABORATORY EXAMINATION: WBC is 12.4, hemoglobin 8.8, hematocrit 26.4, platelet of 132. Chemistry: Sodium 139, potassium 5.1, chloride 102, CO2 26, BUN 73, creatinine 5.3, blood sugar of 151. ASSESSMENT AND PLAN: 1. Status post cardiac arrest, status post code heart and emergency angioplasty. 2. Bilateral alveolar infiltrates. 3. End-stage renal disease, on hemodialysis. 4. Congestive heart failure. 5. Bilateral pleural effusion. 6. 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 PLAN: Keep on vent support. He is getting aspirin and Plavix. He is on Keppra. He is on statin; w ill continue that. Prognosis is poor. Family is thinking for terminal extubation. Milind Avila MD cc: [phone] TT: 09/02/2016 13:08:53 Confirmation # [id number] Dictation # [id number] helen
--- NOTE | 2016-09-02 16:06 | CP.PCM.PN ---
Subjective - Date & Time of Evaluation Date of Evaluation: 09/02/16 Time of Evaluation: 08:10 - Subjective Subjective: Continues to be on the ventilator, sedated. Has occasional low grade fever. Objective - Vital Signs/Intake and Output Vital Signs (last 24 hours): Temp Pulse Resp BP Pulse Ox 99.7 F H 79 25 H 132/52 L 98 09/02/16 15:11 09/02/16 15:11 09/02/16 07:22 09/02/16 15:11 09/02/16 15:11 Intake and Output: 09/02/16 09/02/16 06:59 18:59 Intake Total 400 Output Total 0 Balance 400 - Medications Medications: Current Medications Acetaminophen (Tylenol 325mg Tab) 650 mg PO Q6H PRN PRN Reason: Fever >100.4 F Albuterol/Ipratropium (Duoneb 3 Mg/0.5 Mg (3 Ml) Ud) 3 ml IH [id number] [facility] Last Admin: 09/02/16 13:43 Dose: 3 ml Albuterol/Ipratropium (Duoneb 3 Mg/0.5 Mg (3 Ml) Ud) 3 ml IH Q2H PRN PRN Reason: Shortness of Breath Aspirin (Ecotrin) 81 mg PO DAILY [facility] Last Admin: 09/02/16 09:35 Dose: 81 mg Atorvastatin Calcium (Lipitor) 80 mg PO DIN [facility] Last Admin: 09/01/16 18:15 Dose: 80 mg Carvedilol (Coreg) 3.125 mg PO BID [facility] Last Admin: 09/02/16 09:35 Dose: 3.125 mg Clopidogrel Bisulfate (Plavix) 75 mg PO DAILY [facility] Last Admin: 09/02/16 09:35 Dose: 75 mg Heparin Sodium (Porcine) (Heparin) 5,000 units SC Q8H [facility] PRN Reason: Protocol Last Admin: 09/02/16 09:39 Dose: 5,000 units Levetiracetam 1,000 mg/ Sodium (Chloride) 110 mls @ 460 mls/hr IV Q12 [facility] Last Admin: 09/02/16 09:40 Dose: 460 mls/hr Propofol (Diprivan) 1,000 mg in 100 mls @ 2.04 mls/hr IV .Q24H PRN; Protocol; 5 MCG/KG/MIN PRN Reason: TITRATE PER MD ORDER Meropenem 1g/NS 100mL IVPB (Meropenem 1g/Ns 100ml Ivpb) 1 gm in 100 mls @ 100 mls/hr IVPB Q12 [facility] PRN Reason: Protocol Stop: 09/07/16 22:01 Last Admin: 09/02/16 09:35 Dose: 100 mls/hr Insulin Human Lispro (Humalog Med) 0 units SC Q6H [facility] PRN Reason: Protocol Last Admin: 09/02/16 13:05 Dose: 1 units Pantoprazole Sodium (Protonix Inj) 40 mg IVP DAILY [facility] Last Admin: 09/02/16 09:36 Dose: 40 mg - Labs Labs: 09/02/16 06:30 09/02/16 06:30 PT 15.5 Seconds (9.9-11.8) H 08/28/16 14:05 INR 1.44 (0.93-1.08) H 08/28/16 14:05 APTT 29.0 Seconds (23.7-30.8) 08/28/16 14:05 - Constitutional Appears: Other (Intubated, poorly responsive) - Head Exam Head Exam: NORMAL INSPECTION - ENT Exam Additional comments: ET tube in place - Neck Exam Neck Exam: absent: Lymphadenopathy, Meningismus - Respiratory Exam Respiratory Exam: Decreased Breath Sounds - Cardiovascular Exam Cardiovascular Exam: +S1, +S2 - GI/Abdominal Exam GI & Abdominal Exam: Soft. absent: Tenderness Assessment and Plan - Assessment and Plan (Free Text) Plan: Assessment S/P systemic inflammatory response syndrome, probably from cardiorespiratory arrest from acute inferior wall ST elevation myocardial infarction consider right lower lobe healthcare-associated pneumonia with ventilator- dependent respiratory failure ESRD on HD HTN DM anxiety disorder right arm A-V fistula dyslipidemia osteoarthritis glaucoma right eye legally blind Plan continue Merrem (day 5 already); blood, sputum cx results (so far negative) - would target up to 7 days of therapy Overall prognosis is poor Will continue to monitor clinically
--- NOTE | 2016-09-02 17:15 | CP.CCUPN ---
<Sanchez Hou - Last Filed: 09/02/16 17:29> CCU Subjective - Physician Review Events Since Last Encounter (Free Text): 09/02/16 17:13 Sanchez Hou D.O. PGY-1, Internal Medicine Resident, ICU Progress Note 86 year old male with a PMH of CAD s/p multiple stents, ESRD on HD, HTN, NIDDM, left eye blindness, HLD, PVD who presented after out of hospital Vfib cardiac arrest, underwent PCI with 2 bare metal stents placed, was hemodynamically unstable on code freeze which was terminated, and who after stabilization had only a respiratory drive neurologically intact. Patient was seen and examined at bedside. Family is at bedside and we discussed his condition at length today as we have other days. His prognosis remains poor and the family has made the patient DNR since yesterday night. CCU Objective - Vital Signs / Intake & Output Vital Signs (Last 4 hours): Vital Signs Temp Pulse BP Pulse Ox 09/02/16 16:12 99.5 F 76 95/58 L 100 09/02/16 16:11 99.5 F 81 103/49 L 100 09/02/16 16:00 99.5 F 86 100 09/02/16 15:56 99.5 F 82 131/53 L 100 09/02/16 15:41 99.5 F 77 124/53 L 99 09/02/16 15:26 99.7 F H 77 128/55 L 99 09/02/16 15:11 99.7 F H 79 132/52 L 98 09/02/16 15:08 99.9 F H 80 134/52 L 99 09/02/16 15:00 99.9 F H 93 H 99 09/02/16 14:56 99.9 F H 80 134/57 L 98 09/02/16 14:47 99.9 F H 80 133/57 L 97 09/02/16 14:41 99.9 F H 81 129/53 L 96 09/02/16 14:20 99.9 F H 81 132/54 L 97 09/02/16 14:00 99.9 F H 82 100 09/02/16 13:20 99.7 F H 85 144/56 L 99 Intake and Output (Last 8hrs): Intake & Output 09/02/16 09/02/16 09/02/16 06:59 14:59 22:59 Intake Total 200 Output Total 0 Balance 200 Weight 75.387 kg Intake: IV 0 Left Internal Jugular 0 Oral 0 Tube Feeding 0 TPN/PPN 0 Blood Product 0 Lipid 0 Albumin 0 Other 200 Output: Urine 0 Urine, Voided 0 Stool 0 Urine/Stool Mix 0 Emesis 0 Oral Regurgitation 0 Other 0 Other: # Voids Urine, Voided 0 # Bowel Movements 0 - Physical Exam Head: Positive for: Atraumatic, Normocephalic Pupils: Positive for: Pinpoint, Other (L eye old hemorrhage) Extroacular Muscles: Negative for: EOMI Conjunctiva: Positive for: Normal Ears: Positive for: Normal Mouth: Positive for: Other (ET tube in place) Pharnyx: Positive for: Other (ET in place) Nose (External): Positive for: Atraumatic Neck: Positive for: Trachea Midline Respiratory/Chest: Positive for: Clear to Auscultation, Good Air Exchange. Negative for: Wheezes, Rales, Retracting, Rhonchi Cardiovascular: Positive for: Regular Rate and Rhythm, Normal S1, S2. Negative for: Murmurs Abdomen: Positive for: Normal Bowel Sounds. Negative for: Distention, Peritoneal Signs, Rebound Upper Extremity: Positive for: Edema (1+ pitting edema BL), NORMAL PULSES, Capillary Refill < 2s Lower Extremity: Positive for: Edema (trace edema), Capillary Refill < 2 s, Other (non-palpable pedal pulses) Neurological: Positive for: Other (pinpoint non-responsive R pupil, no gag reflex, no cough reflex, no corneal reflex, negative babinski's, + triple flexor sign BL) Skin: Positive for: Warm, Dry Psychiatric: Negative for: Alert, Oriented x 3 - Medications Active Medications: Active Medications Generic Name Dose Route Start Last Admin Trade Name Freq PRN Reason Stop Dose Admin Acetaminophen 650 mg 09/01/16 11:39 Tylenol 325mg Tab PO Q6H PRN Fever >100.4 F Albuterol/Ipratropium 3 ml 08/30/16 08:00 09/02/16 13:43 Duoneb 3 Mg/0.5 Mg (3 Ml) Ud IH 3 ml [id number] ALBERTO Administration Albuterol/Ipratropium 3 ml 08/30/16 07:07 Duoneb 3 Mg/0.5 Mg (3 Ml) Ud IH Q2H PRN Shortness of Breath Aspirin 81 mg 08/29/16 10:00 09/02/16 09:35 Ecotrin PO 81 mg DAILY ALBERTO Administration Atorvastatin Calcium 80 mg 08/28/16 17:00 09/01/16 18:15 Lipitor PO 80 mg DIN ALBERTO Administration Carvedilol 3.125 mg 08/28/16 18:00 09/02/16 09:35 Coreg PO 3.125 mg BID ALBERTO Administration Clopidogrel Bisulfate 75 mg 08/29/16 10:00 09/02/16 09:35 Plavix PO 75 mg DAILY ALBERTO Administration Heparin Sodium (Porcine) 5,000 units 08/28/16 17:00 09/02/16 09:39 Heparin SC 5,000 units Q8H ALBERTO Administration Protocol Levetiracetam 1,000 mg/ Sodium 110 mls @ 460 mls/hr 08/28/16 22:00 09/02/16 09:40 Chloride IV 460 mls/hr Q12 ALBERTO Administration Propofol 1,000 mg in 100 mls @ 2.04 mls/hr 08/30/16 00:46 Diprivan IV .Q24H PRN TITRATE PER MD ORDER Protocol 5 MCG/KG/MIN Meropenem 1g/NS 100mL IVPB 1 gm in 100 mls @ 100 mls/hr 08/31/16 22:00 09:35 Meropenem 1g/Ns 100ml Ivpb IVPB 09/07/16 22:01 100 mls/hr Q12 ALBERTO Administration Protocol Insulin Human Lispro 0 units 09/01/16 07:15 09/02/16 13:05 Humalog Med SC 1 units Q6H ALBERTO Administration Protocol Pantoprazole Sodium 40 mg 08/28/16 17:00 09/02/16 09:36 Protonix Inj IVP 40 mg DAILY ALBERTO Administration - Patient Studies Lab Studies: Lab Studies 09/02/16 09/02/16 09/02/16 Range/Units 16:06 11:28 08:08 WBC (4.5-11.0) 10^3/ul RBC (3.5-6.1) 10^6/uL Hgb (14.0-18.0) gm/dL Hct (42.0-52.0) % MCV (80.0-105.0) fL MCH (25.0-35.0) pg MCHC (31.0-37.0) g/dl RDW (11.5-14.5) % Plt Count (120.0-450.0) 10^3/uL MPV (7.0-11.0) fl Gran % (50.0-68.0) % Lymph % (Auto) (22.0-35.0) % [place] % (Auto) (1.0-6.0) % Eos % (Auto) (1.5-5.0) % Baso % (Auto) (0.0-3.0) % Gran # (1.4-6.5) Lymph # (1.2-3.4) [place] # (0.1-0.6) Eos # (0.0-0.7) Baso # (0.0-2.0) K/mm3 pCO2 (35-45) mm/Hg pO2 (80-100) mm/Hg HCO3 (21-28) mmol/L ABG pH (7.35-7.45) ABG Total CO2 (22-28) mmol.L ABG O2 Saturation (95-98) % ABG O2 Content (15-23) ML/dl ABG Base Excess (-2.0-3.0) mmol/L ABG Hemoglobin (11.7-17.4) g/dL ABG Carboxyhemoglobin (0.5-1.5) % POC ABG HHb (Measured) (0-5) % ABG Methemoglobin (0.0-3.0) % ABG O2 Capacity (16-24) mL/dl Hgb O2 Saturation (95.0-98.0) % FiO2 % Sodium (132-148) mmol/L Potassium (3.6-5.0) mmol/L Chloride (98-107) mmol/L Carbon Dioxide (21-33) mmol/L Anion Gap (10-20) BUN (7-21) mg/dL Creatinine (0.5-1.4) mg/dL Est GFR ( Amer) Est GFR (Non-Af Amer) POC Glucose (mg/dL) 143 H 151 H 153 H (65-110) mg/dL Random Glucose (70-110) mg/dL Calcium (8.4-10.5) mg/dL Phosphorus (2.5-4.5) mg/dL Magnesium (1.7-2.2) mg/dL Total Bilirubin (0.2-1.3) mg/dL AST (15-59) U/L ALT (7-56) U/L Alkaline Phosphatase (38-133) U/L Total Protein (5.8-8.3) g/dL Albumin (3.0-4.8) g/dL Globulin gm/dL Albumin/Globulin Ratio (1.1-1.8) 09/02/16 09/02/16 09/02/16 Range/Units 06:30 06:30 06:30 WBC 12.4 H (4.5-11.0) 10^3/ul RBC 2.92 L (3.5-6.1) 10^6/uL Hgb 8.8 L (14.0-18.0) gm/dL Hct 26.4 L (42.0-52.0) % MCV 90.4 (80.0-105.0) fL MCH 30.1 (25.0-35.0) pg MCHC 33.3 (31.0-37.0) g/dl RDW 16.3 H (11.5-14.5) % Plt Count 132 (120.0-450.0) 10^3/uL MPV 11.8 H (7.0-11.0) fl Gran % 90.1 H (50.0-68.0) % Lymph % (Auto) 2.3 L (22.0-35.0) % [place] % (Auto) 7.5 H (1.0-6.0) % Eos % (Auto) 0.1 L (1.5-5.0) % Baso % (Auto) 0.0 (0.0-3.0) % Gran # 11.14 H (1.4-6.5) Lymph # 0.3 L (1.2-3.4) [place] # 0.9 H (0.1-0.6) Eos # 0.0 (0.0-0.7) Baso # 0.00 (0.0-2.0) K/mm3 pCO2 (35-45) mm/Hg pO2 (80-100) mm/Hg HCO3 (21-28) mmol/L ABG pH (7.35-7.45) ABG Total CO2 (22-28) mmol.L ABG O2 Saturation (95-98) % ABG O2 Content (15-23) ML/dl ABG Base Excess (-2.0-3.0) mmol/L ABG Hemoglobin (11.7-17.4) g/dL ABG Carboxyhemoglobin (0.5-1.5) % POC ABG HHb (Measured) (0-5) % ABG Methemoglobin (0.0-3.0) % ABG O2 Capacity (16-24) mL/dl Hgb O2 Saturation (95.0-98.0) % FiO2 % Sodium 139 (132-148) mmol/L Potassium 5.1 H (3.6-5.0) mmol/L Chloride 102 (98-107) mmol/L Carbon Dioxide 26 (21-33) mmol/L Anion Gap 16 (10-20) BUN 73 H (7-21) mg/dL Creatinine 5.3 H (0.5-1.4) mg/dL Est GFR ( Amer) 13 Est GFR (Non-Af Amer) 10 POC Glucose (mg/dL) (65-110) mg/dL Random Glucose 123 H (70-110) mg/dL Calcium 8.1 L (8.4-10.5) mg/dL Phosphorus 8.0 H (2.5-4.5) mg/dL Magnesium 2.4 H (1.7-2.2) mg/dL Total Bilirubin 0.8 (0.2-1.3) mg/dL AST 86 H (15-59) U/L ALT 57 H (7-56) U/L Alkaline Phosphatase 76 (38-133) U/L Total Protein 5.5 L (5.8-8.3) g/dL Albumin 2.9 L (3.0-4.8) g/dL Globulin 2.6 gm/dL Albumin/Globulin Ratio 1.1 (1.1-1.8) 09/02/16 09/02/16 09/01/16 Range/Units 05:50 01:26 20:07 WBC (4.5-11.0) 10^3/ul RBC (3.5-6.1) 10^6/uL Hgb (14.0-18.0) gm/dL Hct (42.0-52.0) % MCV (80.0-105.0) fL MCH (25.0-35.0) pg MCHC (31.0-37.0) g/dl RDW (11.5-14.5) % Plt Count (120.0-450.0) 10^3/uL MPV (7.0-11.0) fl Gran % (50.0-68.0) % Lymph % (Auto) (22.0-35.0) % [place] % (Auto) (1.0-6.0) % Eos % (Auto) (1.5-5.0) % Baso % (Auto) (0.0-3.0) % Gran # (1.4-6.5) Lymph # (1.2-3.4) [place] # (0.1-0.6) Eos # (0.0-0.7) Baso # (0.0-2.0) K/mm3 pCO2 35 (35-45) mm/Hg pO2 181.0 H (80-100) mm/Hg HCO3 22.7 (21-28) mmol/L ABG pH 7.42 (7.35-7.45) ABG Total CO2 23.8 (22-28) mmol.L ABG O2 Saturation 97.1 (95-98) % ABG O2 Content 11.5 L (15-23) ML/dl ABG Base Excess -1.5 (-2.0-3.0) mmol/L ABG Hemoglobin 8.1 L (11.7-17.4) g/dL ABG Carboxyhemoglobin 0 L (0.5-1.5) % POC ABG HHb (Measured) 2.9 (0-5) % ABG Methemoglobin 0.2 (0.0-3.0) % ABG O2 Capacity 11.8 L (16-24) mL/dl Hgb O2 Saturation 96.8 (95.0-98.0) % FiO2 40.0 % Sodium (132-148) mmol/L Potassium (3.6-5.0) mmol/L Chloride (98-107) mmol/L Carbon Dioxide (21-33) mmol/L Anion Gap (10-20) BUN (7-21) mg/dL Creatinine (0.5-1.4) mg/dL Est GFR ( Amer) Est GFR (Non-Af Amer) POC Glucose (mg/dL) 145 H 140 H (65-110) mg/dL Random Glucose (70-110) mg/dL Calcium (8.4-10.5) mg/dL Phosphorus (2.5-4.5) mg/dL Magnesium (1.7-2.2) mg/dL Total Bilirubin (0.2-1.3) mg/dL AST (15-59) U/L ALT (7-56) U/L Alkaline Phosphatase (38-133) U/L Total Protein (5.8-8.3) g/dL Albumin (3.0-4.8) g/dL Globulin gm/dL Albumin/Globulin Ratio (1.1-1.8) 09/01/16 09/01/16 09/01/16 Range/Units 13:24 08:42 01:22 WBC (4.5-11.0) 10^3/ul RBC (3.5-6.1) 10^6/uL Hgb (14.0-18.0) gm/dL Hct (42.0-52.0) % MCV (80.0-105.0) fL MCH (25.0-35.0) pg MCHC (31.0-37.0) g/dl RDW (11.5-14.5) % Plt Count (120.0-450.0) 10^3/uL MPV (7.0-11.0) fl Gran % (50.0-68.0) % Lymph % (Auto) (22.0-35.0) % [place] % (Auto) (1.0-6.0) % Eos % (Auto) (1.5-5.0) % Baso % (Auto) (0.0-3.0) % Gran # (1.4-6.5) Lymph # (1.2-3.4) [place] # (0.1-0.6) Eos # (0.0-0.7) Baso # (0.0-2.0) K/mm3 pCO2 (35-45) mm/Hg pO2 (80-100) mm/Hg HCO3 (21-28) mmol/L ABG pH (7.35-7.45) ABG Total CO2 (22-28) mmol.L ABG O2 Saturation (95-98) % ABG O2 Content (15-23) ML/dl ABG Base Excess (-2.0-3.0) mmol/L ABG Hemoglobin (11.7-17.4) g/dL ABG Carboxyhemoglobin (0.5-1.5) % POC ABG HHb (Measured) (0-5) % ABG Methemoglobin (0.0-3.0) % ABG O2 Capacity (16-24) mL/dl Hgb O2 Saturation (95.0-98.0) % FiO2 % Sodium (132-148) mmol/L Potassium (3.6-5.0) mmol/L Chloride (98-107) mmol/L Carbon Dioxide (21-33) mmol/L Anion Gap (10-20) BUN (7-21) mg/dL Creatinine (0.5-1.4) mg/dL Est GFR ( Amer) Est GFR (Non-Af Amer) POC Glucose (mg/dL) 99 96 84 (65-110) mg/dL Random Glucose (70-110) mg/dL Calcium (8.4-10.5) mg/dL Phosphorus (2.5-4.5) mg/dL Magnesium (1.7-2.2) mg/dL Total Bilirubin (0.2-1.3) mg/dL AST (15-59) U/L ALT (7-56) U/L Alkaline Phosphatase (38-133) U/L Total Protein (5.8-8.3) g/dL Albumin (3.0-4.8) g/dL Globulin gm/dL Albumin/Globulin Ratio (1.1-1.8) 08/31/16 08/31/16 08/31/16 Range/Units 21:08 16:01 11:36 WBC (4.5-11.0) 10^3/ul RBC (3.5-6.1) 10^6/uL Hgb (14.0-18.0) gm/dL Hct (42.0-52.0) % MCV (80.0-105.0) fL MCH (25.0-35.0) pg MCHC (31.0-37.0) g/dl RDW (11.5-14.5) % Plt Count (120.0-450.0) 10^3/uL MPV (7.0-11.0) fl Gran % (50.0-68.0) % Lymph % (Auto) (22.0-35.0) % [place] % (Auto) (1.0-6.0) % Eos % (Auto) (1.5-5.0) % Baso % (Auto) (0.0-3.0) % Gran # (1.4-6.5) Lymph # (1.2-3.4) [place] # (0.1-0.6) Eos # (0.0-0.7) Baso # (0.0-2.0) K/mm3 pCO2 (35-45) mm/Hg pO2 (80-100) mm/Hg HCO3 (21-28) mmol/L ABG pH (7.35-7.45) ABG Total CO2 (22-28) mmol.L ABG O2 Saturation (95-98) % ABG O2 Content (15-23) ML/dl ABG Base Excess (-2.0-3.0) mmol/L ABG Hemoglobin (11.7-17.4) g/dL ABG Carboxyhemoglobin (0.5-1.5) % POC ABG HHb (Measured) (0-5) % ABG Methemoglobin (0.0-3.0) % ABG O2 Capacity (16-24) mL/dl Hgb O2 Saturation (95.0-98.0) % FiO2 % Sodium (132-148) mmol/L Potassium (3.6-5.0) mmol/L Chloride (98-107) mmol/L Carbon Dioxide (21-33) mmol/L Anion Gap (10-20) BUN (7-21) mg/dL Creatinine (0.5-1.4) mg/dL Est GFR ( Amer) Est GFR (Non-Af Amer) POC Glucose (mg/dL) 86 108 113 H (65-110) mg/dL Random Glucose (70-110) mg/dL Calcium (8.4-10.5) mg/dL Phosphorus (2.5-4.5) mg/dL Magnesium (1.7-2.2) mg/dL Total Bilirubin (0.2-1.3) mg/dL AST (15-59) U/L ALT (7-56) U/L Alkaline Phosphatase (38-133) U/L Total Protein (5.8-8.3) g/dL Albumin (3.0-4.8) g/dL Globulin gm/dL Albumin/Globulin Ratio (1.1-1.8) 08/31/16 08/31/16 08/31/16 Range/Units 08:26 04:31 00:17 WBC (4.5-11.0) 10^3/ul RBC (3.5-6.1) 10^6/uL Hgb (14.0-18.0) gm/dL Hct (42.0-52.0) % MCV (80.0-105.0) fL MCH (25.0-35.0) pg MCHC (31.0-37.0) g/dl RDW (11.5-14.5) % Plt Count (120.0-450.0) 10^3/uL MPV (7.0-11.0) fl Gran % (50.0-68.0) % Lymph % (Auto) (22.0-35.0) % [place] % (Auto) (1.0-6.0) % Eos % (Auto) (1.5-5.0) % Baso % (Auto) (0.0-3.0) % Gran # (1.4-6.5) Lymph # (1.2-3.4) [place] # (0.1-0.6) Eos # (0.0-0.7) Baso # (0.0-2.0) K/mm3 pCO2 (35-45) mm/Hg pO2 (80-100) mm/Hg HCO3 (21-28) mmol/L ABG pH (7.35-7.45) ABG Total CO2 (22-28) mmol.L ABG O2 Saturation (95-98) % ABG O2 Content (15-23) ML/dl ABG Base Excess (-2.0-3.0) mmol/L ABG Hemoglobin (11.7-17.4) g/dL ABG Carboxyhemoglobin (0.5-1.5) % POC ABG HHb (Measured) (0-5) % ABG Methemoglobin (0.0-3.0) % ABG O2 Capacity (16-24) mL/dl Hgb O2 Saturation (95.0-98.0) % FiO2 % Sodium (132-148) mmol/L Potassium (3.6-5.0) mmol/L Chloride (98-107) mmol/L Carbon Dioxide (21-33) mmol/L Anion Gap (10-20) BUN (7-21) mg/dL Creatinine (0.5-1.4) mg/dL Est GFR ( Amer) Est GFR (Non-Af Amer) POC Glucose (mg/dL) 126 H 154 H 219 H (65-110) mg/dL Random Glucose (70-110) mg/dL Calcium (8.4-10.5) mg/dL Phosphorus (2.5-4.5) mg/dL Magnesium (1.7-2.2) mg/dL Total Bilirubin (0.2-1.3) mg/dL AST (15-59) U/L ALT (7-56) U/L Alkaline Phosphatase (38-133) U/L Total Protein (5.8-8.3) g/dL Albumin (3.0-4.8) g/dL Globulin gm/dL Albumin/Globulin Ratio (1.1-1.8) 08/30/16 08/30/16 Range/Units 20:44 12:18 WBC (4.5-11.0) 10^3/ul RBC (3.5-6.1) 10^6/uL Hgb (14.0-18.0) gm/dL Hct (42.0-52.0) % MCV (80.0-105.0) fL MCH (25.0-35.0) pg MCHC (31.0-37.0) g/dl RDW (11.5-14.5) % Plt Count (120.0-450.0) 10^3/uL MPV (7.0-11.0) fl Gran % (50.0-68.0) % Lymph % (Auto) (22.0-35.0) % [place] % (Auto) (1.0-6.0) % Eos % (Auto) (1.5-5.0) % Baso % (Auto) (0.0-3.0) % Gran # (1.4-6.5) Lymph # (1.2-3.4) [place] # (0.1-0.6) Eos # (0.0-0.7) Baso # (0.0-2.0) K/mm3 pCO2 (35-45) mm/Hg pO2 (80-100) mm/Hg HCO3 (21-28) mmol/L ABG pH (7.35-7.45) ABG Total CO2 (22-28) mmol.L ABG O2 Saturation (95-98) % ABG O2 Content (15-23) ML/dl ABG Base Excess (-2.0-3.0) mmol/L ABG Hemoglobin (11.7-17.4) g/dL ABG Carboxyhemoglobin (0.5-1.5) % POC ABG HHb (Measured) (0-5) % ABG Methemoglobin (0.0-3.0) % ABG O2 Capacity (16-24) mL/dl Hgb O2 Saturation (95.0-98.0) % FiO2 % Sodium (132-148) mmol/L Potassium (3.6-5.0) mmol/L Chloride (98-107) mmol/L Carbon Dioxide (21-33) mmol/L Anion Gap (10-20) BUN (7-21) mg/dL Creatinine (0.5-1.4) mg/dL Est GFR ( Amer) Est GFR (Non-Af Amer) POC Glucose (mg/dL) 242 H 296 H (65-110) mg/dL Random Glucose (70-110) mg/dL Calcium (8.4-10.5) mg/dL Phosphorus (2.5-4.5) mg/dL Magnesium (1.7-2.2) mg/dL Total Bilirubin (0.2-1.3) mg/dL AST (15-59) U/L ALT (7-56) U/L Alkaline Phosphatase (38-133) U/L Total Protein (5.8-8.3) g/dL Albumin (3.0-4.8) g/dL Globulin gm/dL Albumin/Globulin Ratio (1.1-1.8) Laboratory Results - last 24 hr 08/30/16 08/30/16 08/31/16 12:18 20:44 00:17 WBC RBC Hgb Hct MCV MCH MCHC RDW Plt Count MPV Gran % Lymph % (Auto) [place] % (Auto) Eos % (Auto) Baso % (Auto) Gran # Lymph # [place] # Eos # Baso # pCO2 pO2 HCO3 ABG pH ABG Total CO2 ABG O2 Saturation ABG O2 Content ABG Base Excess ABG Hemoglobin ABG Carboxyhemoglobin POC ABG HHb (Measured) ABG Methemoglobin ABG O2 Capacity Hgb O2 Saturation FiO2 Sodium Potassium Chloride Carbon Dioxide Anion Gap BUN Creatinine Est GFR ( Amer) Est GFR (Non-Af Amer) POC Glucose (mg/dL) 296 H 242 H 219 H Random Glucose Calcium Phosphorus Magnesium Total Bilirubin AST ALT Alkaline Phosphatase Total Protein Albumin Globulin Albumin/Globulin Ratio 08/31/16 08/31/16 08/31/16 04:31 08:26 11:36 WBC RBC Hgb Hct MCV MCH MCHC RDW Plt Count MPV Gran % Lymph % (Auto) [place] % (Auto) Eos % (Auto) Baso % (Auto) Gran # Lymph # [place] # Eos # Baso # pCO2 pO2 HCO3 ABG pH ABG Total CO2 ABG O2 Saturation ABG O2 Content ABG Base Excess ABG Hemoglobin ABG Carboxyhemoglobin POC ABG HHb (Measured) ABG Methemoglobin ABG O2 Capacity Hgb O2 Saturation FiO2 Sodium Potassium Chloride Carbon Dioxide Anion Gap BUN Creatinine Est GFR ( Amer) Est GFR (Non-Af Amer) POC Glucose (mg/dL) 154 H 126 H 113 H Random Glucose Calcium Phosphorus Magnesium Total Bilirubin AST ALT Alkaline Phosphatase Total Protein Albumin Globulin Albumin/Globulin Ratio 08/31/16 08/31/16 09/01/16 16:01 21:08 01:22 WBC RBC Hgb Hct MCV MCH MCHC RDW Plt Count MPV Gran % Lymph % (Auto) [place] % (Auto) Eos % (Auto) Baso % (Auto) Gran # Lymph # [place] # Eos # Baso # pCO2 pO2 HCO3 ABG pH ABG Total CO2 ABG O2 Saturation ABG O2 Content ABG Base Excess ABG Hemoglobin ABG Carboxyhemoglobin POC ABG HHb (Measured) ABG Methemoglobin ABG O2 Capacity Hgb O2 Saturation FiO2 Sodium Potassium Chloride Carbon Dioxide Anion Gap BUN Creatinine Est GFR ( Amer) Est GFR (Non-Af Amer) POC Glucose (mg/dL) 108 86 84 Random Glucose Calcium Phosphorus Magnesium Total Bilirubin AST ALT Alkaline Phosphatase Total Protein Albumin Globulin Albumin/Globulin Ratio 09/01/16 09/01/16 09/01/16 08:42 13:24 20:07 WBC RBC Hgb Hct MCV MCH MCHC RDW Plt Count MPV Gran % Lymph % (Auto) [place] % (Auto) Eos % (Auto) Baso % (Auto) Gran # Lymph # [place] # Eos # Baso # pCO2 pO2 HCO3 ABG pH ABG Total CO2 ABG O2 Saturation ABG O2 Content ABG Base Excess ABG Hemoglobin ABG Carboxyhemoglobin POC ABG HHb (Measured) ABG Methemoglobin ABG O2 Capacity Hgb O2 Saturation FiO2 Sodium Potassium Chloride Carbon Dioxide Anion Gap BUN Creatinine Est GFR ( Amer) Est GFR (Non-Af Amer) POC Glucose (mg/dL) 96 99 140 H Random Glucose Calcium Phosphorus Magnesium Total Bilirubin AST ALT Alkaline Phosphatase Total Protein Albumin Globulin Albumin/Globulin Ratio 09/02/16 09/02/16 09/02/16 01:26 05:50 06:30 WBC 12.4 H RBC 2.92 L Hgb 8.8 L Hct 26.4 L MCV 90.4 MCH 30.1 MCHC 33.3 RDW 16.3 H Plt Count 132 MPV 11.8 H Gran % 90.1 H Lymph % (Auto) 2.3 L [place] % (Auto) 7.5 H Eos % (Auto) 0.1 L Baso % (Auto) 0.0 Gran # 11.14 H Lymph # 0.3 L Valencia # 0.9 H Eos # 0.0 Baso # 0.00 pCO2 35 pO2 181.0 H HCO3 22.7 ABG pH 7.42 ABG Total CO2 23.8 ABG O2 Saturation 97.1 ABG O2 Content 11.5 L ABG Base Excess -1.5 ABG Hemoglobin 8.1 L ABG Carboxyhemoglobin 0 L POC ABG HHb (Measured) 2.9 ABG Methemoglobin 0.2 ABG O2 Capacity 11.8 L Hgb O2 Saturation 96.8 FiO2 40.0 Sodium Potassium Chloride Carbon Dioxide Anion Gap BUN Creatinine Est GFR ( Amer) Est GFR (Non-Af Amer) POC Glucose (mg/dL) 145 H Random Glucose Calcium Phosphorus Magnesium Total Bilirubin AST ALT Alkaline Phosphatase Total Protein Albumin Globulin Albumin/Globulin Ratio 09/02/16 09/02/16 09/02/16 06:30 06:30 08:08 WBC RBC Hgb Hct MCV MCH MCHC RDW Plt Count MPV Gran % Lymph % (Auto) [place] % (Auto) Eos % (Auto) Baso % (Auto) Gran # Lymph # [place] # Eos # Baso # pCO2 pO2 HCO3 ABG pH ABG Total CO2 ABG O2 Saturation ABG O2 Content ABG Base Excess ABG Hemoglobin ABG Carboxyhemoglobin POC ABG HHb (Measured) ABG Methemoglobin ABG O2 Capacity Hgb O2 Saturation FiO2 Sodium 139 Potassium 5.1 H Chloride 102 Carbon Dioxide 26 Anion Gap 16 BUN 73 H Creatinine 5.3 H Est GFR ( Amer) 13 Est GFR (Non-Af Amer) 10 POC Glucose (mg/dL) 153 H Random Glucose 123 H Calcium 8.1 L Phosphorus 8.0 H Magnesium 2.4 H Total Bilirubin 0.8 AST 86 H ALT 57 H Alkaline Phosphatase 76 Total Protein 5.5 L Albumin 2.9 L Globulin 2.6 Albumin/Globulin Ratio 1.1 09/02/16 09/02/16 11:28 16:06 WBC RBC Hgb Hct MCV MCH MCHC RDW Plt Count MPV Gran % Lymph % (Auto) [place] % (Auto) Eos % (Auto) Baso % (Auto) Gran # Lymph # [place] # Eos # Baso # pCO2 pO2 HCO3 ABG pH ABG Total CO2 ABG O2 Saturation ABG O2 Content ABG Base Excess ABG Hemoglobin ABG Carboxyhemoglobin POC ABG HHb (Measured) ABG Methemoglobin ABG O2 Capacity Hgb O2 Saturation FiO2 Sodium Potassium Chloride Carbon Dioxide Anion Gap BUN Creatinine Est GFR ( Amer) Est GFR (Non-Af Amer) POC Glucose (mg/dL) 151 H 143 H Random Glucose Calcium Phosphorus Magnesium Total Bilirubin AST ALT Alkaline Phosphatase Total Protein Albumin Globulin Albumin/Globulin Ratio EKG/Cardiology Studies: Cardiology / EKG Studies 09/02/16 14:53 EKG [ELECTROCARDIOGRAM] Stat Comment: Reason For Exam: arrythmia 09/03/16 07:00 ELECTROCARDIOGRAM Routine Comment: Reason For Exam: CAD, S/p IWMI, S/p A fib PRE OP:: N Does Patient Have a Pacemaker?: No PERFORMING PHYSICIAN/PROVIDER:: Rojelio Singh Fingerstick Blood Sugar Results: 151 Critical Care Progress Note - Ventilator Checklist Head of Bed 30 Degrees: Yes PUD Prophalyxis: Yes DVT Prophylaxis: Yes - Vent Settings MODE:: PRVC TIDAL VOLUME:: 350 RESP RATE:: 25 FIO2:: 5 PEEP:: 40 - Extremities/Vascular Does the Patient have a Central Venous Catheter?: Yes Insertion Site: Internal Jugular Vein - Prophylaxis GI Prophylaxis GI: PPI - Prophylaxis DVT Prophylaxis DVT: Heparin SQ Assessment/Plan - Assessment and Plan (Free Text) Assessment: 86 year old male with a PMH of CAD s/p multiple stents, ESRD on HD, HTN, NIDDM, left eye blindness, HLD, PVD who presented after out of hospital Vfib cardiac arrest, underwent PCI with 2 bare metal stents placed, was hemodynamically unstable on code freeze which was terminated, and who after stabilization had only a respiratory drive neurologically intact. Plan: Neurological Neurologically unchanged, NM brain perfusion showed no parenchymal uptake but some sagittal uptake, not brain Neuro following and has discussed poor prognosis with family Continue keppra for seizure ppx DNR signed overnight Cardiovascular Off pressors, hemodynamically stable, cardio following, appreciate recs Cont ASA, plavix, lipitor Pulmonary Multiple failures of CPAP On PRVC 350/25/5/40% Cont nebs No other changes Renal/Fluids/Electrolytes Monitoring I&os, on HD for ESRD, receiving HD now, mild hypokalemia Nephro following GI On GI ppx, no other changes, on tube feeds through NG Infectious disease Afebrile, mild leukocytosis, ID followings, recs appreciated Continue meropenem D3 Hematological: Hgb stable, no acute bleeding noted, hemodynamically stable Endocrine Maintain euglycemia, cont RISS and accuchecks q6h Prophylaxis: SCDs, PPI Patient was seen and examined and case was discussed at length with attending physician. - Date & Time Date: 09/02/16 Time: 11:45 <Cliff Do MD H - Last Filed: 09/02/16 18:23> CCU Objective - Vital Signs / Intake & Output Vital Signs (Last 4 hours): Vital Signs Temp Pulse BP Pulse Ox 09/02/16 18:00 99.1 F 80 100 09/02/16 17:55 99.1 F 75 119/61 100 09/02/16 17:49 99.1 F 83 108/39 L 100 09/02/16 17:41 99.1 F 76 109/40 L 100 09/02/16 17:26 99.1 F 83 111/38 L 100 09/02/16 17:11 99.3 F 73 120/46 L 100 09/02/16 17:00 99.3 F 84 100 09/02/16 16:56 99.3 F 80 109/39 L 100 09/02/16 16:42 99.3 F 79 102/55 L 100 09/02/16 16:41 99.3 F 81 102/40 L 100 09/02/16 16:34 99.3 F 79 113/51 L 99 09/02/16 16:27 99.3 F 75 97/41 L 98 09/02/16 16:12 99.5 F 76 95/58 L 100 09/02/16 16:11 99.5 F 81 103/49 L 100 09/02/16 16:00 99.5 F 86 100 09/02/16 15:56 99.5 F 82 131/53 L 100 09/02/16 15:41 99.5 F 77 124/53 L 99 09/02/16 15:26 99.7 F H 77 128/55 L 99 09/02/16 15:11 99.7 F H 79 132/52 L 98 09/02/16 15:08 99.9 F H 80 134/52 L 99 09/02/16 15:00 99.9 F H 93 H 99 09/02/16 14:56 99.9 F H 80 134/57 L 98 09/02/16 14:47 99.9 F H 80 133/57 L 97 09/02/16 14:41 99.9 F H 81 129/53 L 96 09/02/16 14:20 99.9 F H 81 132/54 L 97 Intake and Output (Last 8hrs): Intake & Output 09/02/16 09/02/16 09/02/16 06:59 14:59 22:59 Intake Total 200 Output Total 0 Balance 200 Weight 166 lb 3.2 oz Intake: IV 0 Left Internal Jugular 0 Oral 0 Tube Feeding 0 TPN/PPN 0 Blood Product 0 Lipid 0 Albumin 0 Other 200 Output: Urine 0 Urine, Voided 0 Stool 0 Urine/Stool Mix 0 Emesis 0 Oral Regurgitation 0 Other 0 Other: # Voids Urine, Voided 0 # Bowel Movements 0 - Medications Active Medications: Active Medications Generic Name Dose Route Start Last Admin Trade Name Freq PRN Reason Stop Dose Admin Acetaminophen 650 mg 09/01/16 11:39 Tylenol 325mg Tab PO Q6H PRN Fever >100.4 F Albuterol/Ipratropium 3 ml 08/30/16 08:00 09/02/16 13:43 Duoneb 3 Mg/0.5 Mg (3 Ml) Ud IH 3 ml [id number] ALBERTO Administration Albuterol/Ipratropium 3 ml 08/30/16 07:07 Duoneb 3 Mg/0.5 Mg (3 Ml) Ud IH Q2H PRN Shortness of Breath Aspirin 81 mg 08/29/16 10:00 09/02/16 09:35 Ecotrin PO 81 mg DAILY ALBERTO Administration Atorvastatin Calcium 80 mg 08/28/16 17:00 09/01/16 18:15 Lipitor PO 80 mg DIN ALBERTO Administration Carvedilol 3.125 mg 08/28/16 18:00 09/02/16 17:52 Coreg PO Not Given BID ALBERTO Clopidogrel Bisulfate 75 mg 08/29/16 10:00 09/02/16 09:35 Plavix PO 75 mg DAILY ALBERTO Administration Heparin Sodium (Porcine) 5,000 units 08/28/16 17:00 09/02/16 09:39 Heparin SC 5,000 units Q8H ALBERTO Administration Protocol Levetiracetam 1,000 mg/ Sodium 110 mls @ 460 mls/hr 08/28/16 22:00 09/02/16 09:40 Chloride IV 460 mls/hr Q12 ALBERTO Administration Propofol 1,000 mg in 100 mls @ 2.04 mls/hr 08/30/16 00:46 Diprivan IV .Q24H PRN TITRATE PER MD ORDER Protocol 5 MCG/KG/MIN Meropenem 1g/NS 100mL IVPB 1 gm in 100 mls @ 100 mls/hr 08/31/16 22:00 09:35 Meropenem 1g/Ns 100ml Ivpb IVPB 09/07/16 22:01 100 mls/hr Q12 ALBERTO Administration Protocol Insulin Human Lispro 0 units 09/01/16 07:15 09/02/16 13:05 Humalog Med SC 1 units Q6H ALBERTO Administration Protocol Pantoprazole Sodium 40 mg 08/28/16 17:00 09/02/16 09:36 Protonix Inj IVP 40 mg DAILY ALBERTO Administration - Patient Studies Lab Studies: Lab Studies 09/02/16 09/02/16 09/02/16 Range/Units 16:06 11:28 08:08 WBC (4.5-11.0) 10^3/ul RBC (3.5-6.1) 10^6/uL Hgb (14.0-18.0) gm/dL Hct (42.0-52.0) % MCV (80.0-105.0) fL MCH (25.0-35.0) pg MCHC (31.0-37.0) g/dl RDW (11.5-14.5) % Plt Count (120.0-450.0) 10^3/uL MPV (7.0-11.0) fl Gran % (50.0-68.0) % Lymph % (Auto) (22.0-35.0) % [place] % (Auto) (1.0-6.0) % Eos % (Auto) (1.5-5.0) % Baso % (Auto) (0.0-3.0) % Gran # (1.4-6.5) Lymph # (1.2-3.4) [place] # (0.1-0.6) Eos # (0.0-0.7) Baso # (0.0-2.0) K/mm3 pCO2 (35-45) mm/Hg pO2 (80-100) mm/Hg HCO3 (21-28) mmol/L ABG pH (7.35-7.45) ABG Total CO2 (22-28) mmol.L ABG O2 Saturation (95-98) % ABG O2 Content (15-23) ML/dl ABG Base Excess (-2.0-3.0) mmol/L ABG Hemoglobin (11.7-17.4) g/dL ABG Carboxyhemoglobin (0.5-1.5) % POC ABG HHb (Measured) (0-5) % ABG Methemoglobin (0.0-3.0) % ABG O2 Capacity (16-24) mL/dl Hgb O2 Saturation (95.0-98.0) % FiO2 % Sodium (132-148) mmol/L Potassium (3.6-5.0) mmol/L Chloride (98-107) mmol/L Carbon Dioxide (21-33) mmol/L Anion Gap (10-20) BUN (7-21) mg/dL Creatinine (0.5-1.4) mg/dL Est GFR ( Amer) Est GFR (Non-Af Amer) POC Glucose (mg/dL) 143 H 151 H 153 H (65-110) mg/dL Random Glucose (70-110) mg/dL Calcium (8.4-10.5) mg/dL Phosphorus (2.5-4.5) mg/dL Magnesium (1.7-2.2) mg/dL Total Bilirubin (0.2-1.3) mg/dL AST (15-59) U/L ALT (7-56) U/L Alkaline Phosphatase (38-133) U/L Total Protein (5.8-8.3) g/dL Albumin (3.0-4.8) g/dL Globulin gm/dL Albumin/Globulin Ratio (1.1-1.8) 09/02/16 09/02/16 09/02/16 Range/Units 06:30 06:30 06:30 WBC 12.4 H (4.5-11.0) 10^3/ul RBC 2.92 L (3.5-6.1) 10^6/uL Hgb 8.8 L (14.0-18.0) gm/dL Hct 26.4 L (42.0-52.0) % MCV 90.4 (80.0-105.0) fL MCH 30.1 (25.0-35.0) pg MCHC 33.3 (31.0-37.0) g/dl RDW 16.3 H (11.5-14.5) % Plt Count 132 (120.0-450.0) 10^3/uL MPV 11.8 H (7.0-11.0) fl Gran % 90.1 H (50.0-68.0) % Lymph % (Auto) 2.3 L (22.0-35.0) % [place] % (Auto) 7.5 H (1.0-6.0) % Eos % (Auto) 0.1 L (1.5-5.0) % Baso % (Auto) 0.0 (0.0-3.0) % Gran # 11.14 H (1.4-6.5) Lymph # 0.3 L (1.2-3.4) [place] # 0.9 H (0.1-0.6) Eos # 0.0 (0.0-0.7) Baso # 0.00 (0.0-2.0) K/mm3 pCO2 (35-45) mm/Hg pO2 (80-100) mm/Hg HCO3 (21-28) mmol/L ABG pH (7.35-7.45) ABG Total CO2 (22-28) mmol.L ABG O2 Saturation (95-98) % ABG O2 Content (15-23) ML/dl ABG Base Excess (-2.0-3.0) mmol/L ABG Hemoglobin (11.7-17.4) g/dL ABG Carboxyhemoglobin (0.5-1.5) % POC ABG HHb (Measured) (0-5) % ABG Methemoglobin (0.0-3.0) % ABG O2 Capacity (16-24) mL/dl Hgb O2 Saturation (95.0-98.0) % FiO2 % Sodium 139 (132-148) mmol/L Potassium 5.1 H (3.6-5.0) mmol/L Chloride 102 (98-107) mmol/L Carbon Dioxide 26 (21-33) mmol/L Anion Gap 16 (10-20) BUN 73 H (7-21) mg/dL Creatinine 5.3 H (0.5-1.4) mg/dL Est GFR ( Amer) 13 Est GFR (Non-Af Amer) 10 POC Glucose (mg/dL) (65-110) mg/dL Random Glucose 123 H (70-110) mg/dL Calcium 8.1 L (8.4-10.5) mg/dL Phosphorus 8.0 H (2.5-4.5) mg/dL Magnesium 2.4 H (1.7-2.2) mg/dL Total Bilirubin 0.8 (0.2-1.3) mg/dL AST 86 H (15-59) U/L ALT 57 H (7-56) U/L Alkaline Phosphatase 76 (38-133) U/L Total Protein 5.5 L (5.8-8.3) g/dL Albumin 2.9 L (3.0-4.8) g/dL Globulin 2.6 gm/dL Albumin/Globulin Ratio 1.1 (1.1-1.8) 09/02/16 09/02/16 09/01/16 Range/Units 05:50 01:26 20:07 WBC (4.5-11.0) 10^3/ul RBC (3.5-6.1) 10^6/uL Hgb (14.0-18.0) gm/dL Hct (42.0-52.0) % MCV (80.0-105.0) fL MCH (25.0-35.0) pg MCHC (31.0-37.0) g/dl RDW (11.5-14.5) % Plt Count (120.0-450.0) 10^3/uL MPV (7.0-11.0) fl Gran % (50.0-68.0) % Lymph % (Auto) (22.0-35.0) % [place] % (Auto) (1.0-6.0) % Eos % (Auto) (1.5-5.0) % Baso % (Auto) (0.0-3.0) % Gran # (1.4-6.5) Lymph # (1.2-3.4) [place] # (0.1-0.6) Eos # (0.0-0.7) Baso # (0.0-2.0) K/mm3 pCO2 35 (35-45) mm/Hg pO2 181.0 H (80-100) mm/Hg HCO3 22.7 (21-28) mmol/L ABG pH 7.42 (7.35-7.45) ABG Total CO2 23.8 (22-28) mmol.L ABG O2 Saturation 97.1 (95-98) % ABG O2 Content 11.5 L (15-23) ML/dl ABG Base Excess -1.5 (-2.0-3.0) mmol/L ABG Hemoglobin 8.1 L (11.7-17.4) g/dL ABG Carboxyhemoglobin 0 L (0.5-1.5) % POC ABG HHb (Measured) 2.9 (0-5) % ABG Methemoglobin 0.2 (0.0-3.0) % ABG O2 Capacity 11.8 L (16-24) mL/dl Hgb O2 Saturation 96.8 (95.0-98.0) % FiO2 40.0 % Sodium (132-148) mmol/L Potassium (3.6-5.0) mmol/L Chloride (98-107) mmol/L Carbon Dioxide (21-33) mmol/L Anion Gap (10-20) BUN (7-21) mg/dL Creatinine (0.5-1.4) mg/dL Est GFR ( Amer) Est GFR (Non-Af Amer) POC Glucose (mg/dL) 145 H 140 H (65-110) mg/dL Random Glucose (70-110) mg/dL Calcium (8.4-10.5) mg/dL Phosphorus (2.5-4.5) mg/dL Magnesium (1.7-2.2) mg/dL Total Bilirubin (0.2-1.3) mg/dL AST (15-59) U/L ALT (7-56) U/L Alkaline Phosphatase (38-133) U/L Total Protein (5.8-8.3) g/dL Albumin (3.0-4.8) g/dL Globulin gm/dL Albumin/Globulin Ratio (1.1-1.8) 09/01/16 09/01/16 09/01/16 Range/Units 13:24 08:42 01:22 WBC (4.5-11.0) 10^3/ul RBC (3.5-6.1) 10^6/uL Hgb (14.0-18.0) gm/dL Hct (42.0-52.0) % MCV (80.0-105.0) fL MCH (25.0-35.0) pg MCHC (31.0-37.0) g/dl RDW (11.5-14.5) % Plt Count (120.0-450.0) 10^3/uL MPV (7.0-11.0) fl Gran % (50.0-68.0) % Lymph % (Auto) (22.0-35.0) % [place] % (Auto) (1.0-6.0) % Eos % (Auto) (1.5-5.0) % Baso % (Auto) (0.0-3.0) % Gran # (1.4-6.5) Lymph # (1.2-3.4) [place] # (0.1-0.6) Eos # (0.0-0.7) Baso # (0.0-2.0) K/mm3 pCO2 (35-45) mm/Hg pO2 (80-100) mm/Hg HCO3 (21-28) mmol/L ABG pH (7.35-7.45) ABG Total CO2 (22-28) mmol.L ABG O2 Saturation (95-98) % ABG O2 Content (15-23) ML/dl ABG Base Excess (-2.0-3.0) mmol/L ABG Hemoglobin (11.7-17.4) g/dL ABG Carboxyhemoglobin (0.5-1.5) % POC ABG HHb (Measured) (0-5) % ABG Methemoglobin (0.0-3.0) % ABG O2 Capacity (16-24) mL/dl Hgb O2 Saturation (95.0-98.0) % FiO2 % Sodium (132-148) mmol/L Potassium (3.6-5.0) mmol/L Chloride (98-107) mmol/L Carbon Dioxide (21-33) mmol/L Anion Gap (10-20) BUN (7-21) mg/dL Creatinine (0.5-1.4) mg/dL Est GFR ( Amer) Est GFR (Non-Af Amer) POC Glucose (mg/dL) 99 96 84 (65-110) mg/dL Random Glucose (70-110) mg/dL Calcium (8.4-10.5) mg/dL Phosphorus (2.5-4.5) mg/dL Magnesium (1.7-2.2) mg/dL Total Bilirubin (0.2-1.3) mg/dL AST (15-59) U/L ALT (7-56) U/L Alkaline Phosphatase (38-133) U/L Total Protein (5.8-8.3) g/dL Albumin (3.0-4.8) g/dL Globulin gm/dL Albumin/Globulin Ratio (1.1-1.8) 08/31/16 08/31/16 08/31/16 Range/Units 21:08 16:01 11:36 WBC (4.5-11.0) 10^3/ul RBC (3.5-6.1) 10^6/uL Hgb (14.0-18.0) gm/dL Hct (42.0-52.0) % MCV (80.0-105.0) fL MCH (25.0-35.0) pg MCHC (31.0-37.0) g/dl RDW (11.5-14.5) % Plt Count (120.0-450.0) 10^3/uL MPV (7.0-11.0) fl Gran % (50.0-68.0) % Lymph % (Auto) (22.0-35.0) % [place] % (Auto) (1.0-6.0) % Eos % (Auto) (1.5-5.0) % Baso % (Auto) (0.0-3.0) % Gran # (1.4-6.5) Lymph # (1.2-3.4) [place] # (0.1-0.6) Eos # (0.0-0.7) Baso # (0.0-2.0) K/mm3 pCO2 (35-45) mm/Hg pO2 (80-100) mm/Hg HCO3 (21-28) mmol/L ABG pH (7.35-7.45) ABG Total CO2 (22-28) mmol.L ABG O2 Saturation (95-98) % ABG O2 Content (15-23) ML/dl ABG Base Excess (-2.0-3.0) mmol/L ABG Hemoglobin (11.7-17.4) g/dL ABG Carboxyhemoglobin (0.5-1.5) % POC ABG HHb (Measured) (0-5) % ABG Methemoglobin (0.0-3.0) % ABG O2 Capacity (16-24) mL/dl Hgb O2 Saturation (95.0-98.0) % FiO2 % Sodium (132-148) mmol/L Potassium (3.6-5.0) mmol/L Chloride (98-107) mmol/L Carbon Dioxide (21-33) mmol/L Anion Gap (10-20) BUN (7-21) mg/dL Creatinine (0.5-1.4) mg/dL Est GFR ( Amer) Est GFR (Non-Af Amer) POC Glucose (mg/dL) 86 108 113 H (65-110) mg/dL Random Glucose (70-110) mg/dL Calcium (8.4-10.5) mg/dL Phosphorus (2.5-4.5) mg/dL Magnesium (1.7-2.2) mg/dL Total Bilirubin (0.2-1.3) mg/dL AST (15-59) U/L ALT (7-56) U/L Alkaline Phosphatase (38-133) U/L Total Protein (5.8-8.3) g/dL Albumin (3.0-4.8) g/dL Globulin gm/dL Albumin/Globulin Ratio (1.1-1.8) 08/31/16 08/31/16 08/31/16 Range/Units 08:26 04:31 00:17 WBC (4.5-11.0) 10^3/ul RBC (3.5-6.1) 10^6/uL Hgb (14.0-18.0) gm/dL Hct (42.0-52.0) % MCV (80.0-105.0) fL MCH (25.0-35.0) pg MCHC (31.0-37.0) g/dl RDW (11.5-14.5) % Plt Count (120.0-450.0) 10^3/uL MPV (7.0-11.0) fl Gran % (50.0-68.0) % Lymph % (Auto) (22.0-35.0) % [place] % (Auto) (1.0-6.0) % Eos % (Auto) (1.5-5.0) % Baso % (Auto) (0.0-3.0) % Gran # (1.4-6.5) Lymph # (1.2-3.4) [place] # (0.1-0.6) Eos # (0.0-0.7) Baso # (0.0-2.0) K/mm3 pCO2 (35-45) mm/Hg pO2 (80-100) mm/Hg HCO3 (21-28) mmol/L ABG pH (7.35-7.45) ABG Total CO2 (22-28) mmol.L ABG O2 Saturation (95-98) % ABG O2 Content (15-23) ML/dl ABG Base Excess (-2.0-3.0) mmol/L ABG Hemoglobin (11.7-17.4) g/dL ABG Carboxyhemoglobin (0.5-1.5) % POC ABG HHb (Measured) (0-5) % ABG Methemoglobin (0.0-3.0) % ABG O2 Capacity (16-24) mL/dl Hgb O2 Saturation (95.0-98.0) % FiO2 % Sodium (132-148) mmol/L Potassium (3.6-5.0) mmol/L Chloride (98-107) mmol/L Carbon Dioxide (21-33) mmol/L Anion Gap (10-20) BUN (7-21) mg/dL Creatinine (0.5-1.4) mg/dL Est GFR ( Amer) Est GFR (Non-Af Amer) POC Glucose (mg/dL) 126 H 154 H 219 H (65-110) mg/dL Random Glucose (70-110) mg/dL Calcium (8.4-10.5) mg/dL Phosphorus (2.5-4.5) mg/dL Magnesium (1.7-2.2) mg/dL Total Bilirubin (0.2-1.3) mg/dL AST (15-59) U/L ALT (7-56) U/L Alkaline Phosphatase (38-133) U/L Total Protein (5.8-8.3) g/dL Albumin (3.0-4.8) g/dL Globulin gm/dL Albumin/Globulin Ratio (1.1-1.8) 08/30/16 08/30/16 Range/Units 20:44 12:18 WBC (4.5-11.0) 10^3/ul RBC (3.5-6.1) 10^6/uL Hgb (14.0-18.0) gm/dL Hct (42.0-52.0) % MCV (80.0-105.0) fL MCH (25.0-35.0) pg MCHC (31.0-37.0) g/dl RDW (11.5-14.5) % Plt Count (120.0-450.0) 10^3/uL MPV (7.0-11.0) fl Gran % (50.0-68.0) % Lymph % (Auto) (22.0-35.0) % [place] % (Auto) (1.0-6.0) % Eos % (Auto) (1.5-5.0) % Baso % (Auto) (0.0-3.0) % Gran # (1.4-6.5) Lymph # (1.2-3.4) [place] # (0.1-0.6) Eos # (0.0-0.7) Baso # (0.0-2.0) K/mm3 pCO2 (35-45) mm/Hg pO2 (80-100) mm/Hg HCO3 (21-28) mmol/L ABG pH (7.35-7.45) ABG Total CO2 (22-28) mmol.L ABG O2 Saturation (95-98) % ABG O2 Content (15-23) ML/dl ABG Base Excess (-2.0-3.0) mmol/L ABG Hemoglobin (11.7-17.4) g/dL ABG Carboxyhemoglobin (0.5-1.5) % POC ABG HHb (Measured) (0-5) % ABG Methemoglobin (0.0-3.0) % ABG O2 Capacity (16-24) mL/dl Hgb O2 Saturation (95.0-98.0) % FiO2 % Sodium (132-148) mmol/L Potassium (3.6-5.0) mmol/L Chloride (98-107) mmol/L Carbon Dioxide (21-33) mmol/L Anion Gap (10-20) BUN (7-21) mg/dL Creatinine (0.5-1.4) mg/dL Est GFR ( Amer) Est GFR (Non-Af Amer) POC Glucose (mg/dL) 242 H 296 H (65-110) mg/dL Random Glucose (70-110) mg/dL Calcium (8.4-10.5) mg/dL Phosphorus (2.5-4.5) mg/dL Magnesium (1.7-2.2) mg/dL Total Bilirubin (0.2-1.3) mg/dL AST (15-59) U/L ALT (7-56) U/L Alkaline Phosphatase (38-133) U/L Total Protein (5.8-8.3) g/dL Albumin (3.0-4.8) g/dL Globulin gm/dL Albumin/Globulin Ratio (1.1-1.8) Laboratory Results - last 24 hr 08/30/16 08/30/16 08/31/16 12:18 20:44 00:17 WBC RBC Hgb Hct MCV MCH MCHC RDW Plt Count MPV Gran % Lymph % (Auto) [place] % (Auto) Eos % (Auto) Baso % (Auto) Gran # Lymph # [place] # Eos # Baso # pCO2 pO2 HCO3 ABG pH ABG Total CO2 ABG O2 Saturation ABG O2 Content ABG Base Excess ABG Hemoglobin ABG Carboxyhemoglobin POC ABG HHb (Measured) ABG Methemoglobin ABG O2 Capacity Hgb O2 Saturation FiO2 Sodium Potassium Chloride Carbon Dioxide Anion Gap BUN Creatinine Est GFR ( Amer) Est GFR (Non-Af Amer) POC Glucose (mg/dL) 296 H 242 H 219 H Random Glucose Calcium Phosphorus Magnesium Total Bilirubin AST ALT Alkaline Phosphatase Total Protein Albumin Globulin Albumin/Globulin Ratio 08/31/16 08/31/16 08/31/16 04:31 08:26 11:36 WBC RBC Hgb Hct MCV MCH MCHC RDW Plt Count MPV Gran % Lymph % (Auto) [place] % (Auto) Eos % (Auto) Baso % (Auto) Gran # Lymph # [place] # Eos # Baso # pCO2 pO2 HCO3 ABG pH ABG Total CO2 ABG O2 Saturation ABG O2 Content ABG Base Excess ABG Hemoglobin ABG Carboxyhemoglobin POC ABG HHb (Measured) ABG Methemoglobin ABG O2 Capacity Hgb O2 Saturation FiO2 Sodium Potassium Chloride Carbon Dioxide Anion Gap BUN Creatinine Est GFR ( Amer) Est GFR (Non-Af Amer) POC Glucose (mg/dL) 154 H 126 H 113 H Random Glucose Calcium Phosphorus Magnesium Total Bilirubin AST ALT Alkaline Phosphatase Total Protein Albumin Globulin Albumin/Globulin Ratio 08/31/16 08/31/16 09/01/16 16:01 21:08 01:22 WBC RBC Hgb Hct MCV MCH MCHC RDW Plt Count MPV Gran % Lymph % (Auto) [place] % (Auto) Eos % (Auto) Baso % (Auto) Gran # Lymph # [place] # Eos # Baso # pCO2 pO2 HCO3 ABG pH ABG Total CO2 ABG O2 Saturation ABG O2 Content ABG Base Excess ABG Hemoglobin ABG Carboxyhemoglobin POC ABG HHb (Measured) ABG Methemoglobin ABG O2 Capacity Hgb O2 Saturation FiO2 Sodium Potassium Chloride Carbon Dioxide Anion Gap BUN Creatinine Est GFR ( Amer) Est GFR (Non-Af Amer) POC Glucose (mg/dL) 108 86 84 Random Glucose Calcium Phosphorus Magnesium Total Bilirubin AST ALT Alkaline Phosphatase Total Protein Albumin Globulin Albumin/Globulin Ratio 09/01/16 09/01/16 09/01/16 08:42 13:24 20:07 WBC RBC Hgb Hct MCV MCH MCHC RDW Plt Count MPV Gran % Lymph % (Auto) [place] % (Auto) Eos % (Auto) Baso % (Auto) Gran # Lymph # [place] # Eos # Baso # pCO2 pO2 HCO3 ABG pH ABG Total CO2 ABG O2 Saturation ABG O2 Content ABG Base Excess ABG Hemoglobin ABG Carboxyhemoglobin POC ABG HHb (Measured) ABG Methemoglobin ABG O2 Capacity Hgb O2 Saturation FiO2 Sodium Potassium Chloride Carbon Dioxide Anion Gap BUN Creatinine Est GFR ( Amer) Est GFR (Non-Af Amer) POC Glucose (mg/dL) 96 99 140 H Random Glucose Calcium Phosphorus Magnesium Total Bilirubin AST ALT Alkaline Phosphatase Total Protein Albumin Globulin Albumin/Globulin Ratio 09/02/16 09/02/16 09/02/16 01:26 05:50 06:30 WBC 12.4 H RBC 2.92 L Hgb 8.8 L Hct 26.4 L MCV 90.4 MCH 30.1 MCHC 33.3 RDW 16.3 H Plt Count 132 MPV 11.8 H Gran % 90.1 H Lymph % (Auto) 2.3 L [place] % (Auto) 7.5 H Eos % (Auto) 0.1 L Baso % (Auto) 0.0 Gran # 11.14 H Lymph # 0.3 L [place] # 0.9 H Eos # 0.0 Baso # 0.00 pCO2 35 pO2 181.0 H HCO3 22.7 ABG pH 7.42 ABG Total CO2 23.8 ABG O2 Saturation 97.1 ABG O2 Content 11.5 L ABG Base Excess -1.5 ABG Hemoglobin 8.1 L ABG Carboxyhemoglobin 0 L POC ABG HHb (Measured) 2.9 ABG Methemoglobin 0.2 ABG O2 Capacity 11.8 L Hgb O2 Saturation 96.8 FiO2 40.0 Sodium Potassium Chloride Carbon Dioxide Anion Gap BUN Creatinine Est GFR ( Amer) Est GFR (Non-Af Amer) POC Glucose (mg/dL) 145 H Random Glucose Calcium Phosphorus Magnesium Total Bilirubin AST ALT Alkaline Phosphatase Total Protein Albumin Globulin Albumin/Globulin Ratio 09/02/16 09/02/16 09/02/16 06:30 06:30 08:08 WBC RBC Hgb Hct MCV MCH MCHC RDW Plt Count MPV Gran % Lymph % (Auto) [place] % (Auto) Eos % (Auto) Baso % (Auto) Gran # Lymph # [place] # Eos # Baso # pCO2 pO2 HCO3 ABG pH ABG Total CO2 ABG O2 Saturation ABG O2 Content ABG Base Excess ABG Hemoglobin ABG Carboxyhemoglobin POC ABG HHb (Measured) ABG Methemoglobin ABG O2 Capacity Hgb O2 Saturation FiO2 Sodium 139 Potassium 5.1 H Chloride 102 Carbon Dioxide 26 Anion Gap 16 BUN 73 H Creatinine 5.3 H Est GFR ( Amer) 13 Est GFR (Non-Af Amer) 10 POC Glucose (mg/dL) 153 H Random Glucose 123 H Calcium 8.1 L Phosphorus 8.0 H Magnesium 2.4 H Total Bilirubin 0.8 AST 86 H ALT 57 H Alkaline Phosphatase 76 Total Protein 5.5 L Albumin 2.9 L Globulin 2.6 Albumin/Globulin Ratio 1.1 09/02/16 09/02/16 11:28 16:06 WBC RBC Hgb Hct MCV MCH MCHC RDW Plt Count MPV Gran % Lymph % (Auto) [place] % (Auto) Eos % (Auto) Baso % (Auto) Gran # Lymph # [place] # Eos # Baso # pCO2 pO2 HCO3 ABG pH ABG Total CO2 ABG O2 Saturation ABG O2 Content ABG Base Excess ABG Hemoglobin ABG Carboxyhemoglobin POC ABG HHb (Measured) ABG Methemoglobin ABG O2 Capacity Hgb O2 Saturation FiO2 Sodium Potassium Chloride Carbon Dioxide Anion Gap BUN Creatinine Est GFR ( Amer) Est GFR (Non-Af Amer) POC Glucose (mg/dL) 151 H 143 H Random Glucose Calcium Phosphorus Magnesium Total Bilirubin AST ALT Alkaline Phosphatase Total Protein Albumin Globulin Albumin/Globulin Ratio EKG/Cardiology Studies: Cardiology / EKG Studies 09/02/16 14:53 EKG [ELECTROCARDIOGRAM] Stat Comment: Reason For Exam: arrythmia 09/03/16 07:00 ELECTROCARDIOGRAM Routine Comment: Reason For Exam: CAD, S/p IWMI, S/p A fib PRE OP:: N Does Patient Have a Pacemaker?: No PERFORMING PHYSICIAN/PROVIDER:: Rojelio Singh Attending/Attestation - Attestation I have personally seen and examined this patient.: Yes I have fully participated in the care of the patient.: Yes I have reviewed all pertinent clinical information: Yes Notes (Text): 09/02/16 18:17 86 y/o M s/p cardiac arrest post cardiac catherization day #5 post arrest. 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 Some spinal reflex intact. Family at bedside aware of the findings and is preparing for terminal extubation. ESRD on HD Off all vasopressors On seizure prophylaxis w/ Keppra BID, Neurology following as well. 2 EEG's done which shows slowing delta waves. No active seizure. cc time 65 min
--- NOTE | 2016-09-02 20:16 | CARD ---
APPROVED REPORT EKG Measurement Heart [id number] <Conclusion> Atrial fibrillation with premature ventricular or aberrantly conducted complexes Right bundle branch block Abnormal ECG
[2016-09-03] MEDS: Insulin Lispro (humaLOG) MEDIUM Coverage SC SCH ×3 (01:00→13:15)
[2016-09-03] MEDS: Albuterol-Ipratrop 3 mg / 0.5 (3 ml) UD IH SCH ×3 (04:44→13:16)
[2016-09-03 07:45] VITALS: RESP 22
--- NOTE | 2016-09-03 07:58 | CP.CCUPN ---
<Isabela Robbins - Last Filed: 09/03/16 13:55> CCU Subjective - Physician Review Events Since Last Encounter (Free Text): 09/03/16 07:53 Pt s/e at bedside this AM. Patient had low grade fevers overnight with Tmax of 100.6 that came down to 100.2 with a dose of tylenol. Temp this AM is still elevated at 100.2. Neurololgical status remains unchanged with no Pupillary or gag reflex, no movements to noxious stimuli. Yesterday patient's family made him DNR and the daughter in the room says that the family will discuss later today and probably decide terminally extubate the patient. CCU Objective - Vital Signs / Intake & Output Vital Signs (Last 4 hours): Vital Signs Temp Pulse Resp BP Pulse Ox 09/03/16 07:44 22 93 L 09/03/16 05:00 100.0 F H 84 99 09/03/16 04:55 100.0 F H 84 131/43 L 98 09/03/16 04:00 99.9 F H 81 100 09/03/16 03:55 100.0 F H 81 127/48 L 100 Intake and Output (Last 8hrs): Intake & Output 09/02/16 09/03/16 09/03/16 22:59 06:59 14:59 Intake Total 1020 Output Total 0 Balance 1020 Intake: IV 470 Left Internal Jugular 470 Tube Feeding 550 Output: Emesis 0 Oral Regurgitation 0 Other 0 Other: # Voids Urine, Voided 0 # Bowel Movements 0 - Physical Exam Physical Exam Limitations: Positive for: Altered Mental Status Head: Positive for: Atraumatic, Normocephalic Pupils: Positive for: Pinpoint, Other (L eye old hemorrhage. right eye slow lateral movement back and forth in reaction to light) Extroacular Muscles: Negative for: EOMI Conjunctiva: Positive for: Normal Ears: Positive for: Normal Mouth: Positive for: Other (ET tube in place) Pharnyx: Positive for: Other (ET in place) Nose (External): Positive for: Atraumatic, Other (NGT in place with no signs of active bleed or trauma) Neck: Positive for: Trachea Midline Respiratory/Chest: Positive for: Good Air Exchange, Rhonchi. Negative for: Wheezes, Rales, Retracting Cardiovascular: Positive for: Regular Rate and Rhythm, Normal S1, S2. Negative for: Murmurs Abdomen: Positive for: Normal Bowel Sounds. Negative for: Distention, Peritoneal Signs Upper Extremity: Positive for: Edema (2+ pitting edema BL from hands to elbow), NORMAL PULSES, Capillary Refill < 2s. Negative for: Temperature Abnormalties Lower Extremity: Positive for: Capillary Refill < 2 s, Other (non-palpable pedal pulses). Negative for: Edema Neurological: Positive for: Other (pinpoint non-responsive R pupil, no gag reflex, no corneal reflex, negative babinski's, no response to noxious stimuli) Skin: Positive for: Warm, Dry. Negative for: Rashes Psychiatric: Negative for: Alert, Oriented x 3 - Medications Active Medications: Active Medications Generic Name Dose Route Start Last Admin Trade Name Freq PRN Reason Stop Dose Admin Acetaminophen 650 mg 09/01/16 11:39 09/02/16 23:02 Tylenol 325mg Tab PO 650 mg Q6H PRN Administration Fever >100.4 F Albuterol/Ipratropium 3 ml 08/30/16 08:00 09/03/16 07:40 Duoneb 3 Mg/0.5 Mg (3 Ml) Ud IH 3 ml [id number] ALBERTO Administration Albuterol/Ipratropium 3 ml 08/30/16 07:07 Duoneb 3 Mg/0.5 Mg (3 Ml) Ud IH Q2H PRN Shortness of Breath Aspirin 81 mg 08/29/16 10:00 09/02/16 09:35 Ecotrin PO 81 mg DAILY ALBERTO Administration Atorvastatin Calcium 80 mg 08/28/16 17:00 09/01/16 18:15 Lipitor PO 80 mg DIN ALBERTO Administration Carvedilol 3.125 mg 08/28/16 18:00 09/02/16 17:52 Coreg PO Not Given BID ALBERTO Clopidogrel Bisulfate 75 mg 08/29/16 10:00 09/02/16 09:35 Plavix PO 75 mg DAILY ALBERTO Administration Heparin Sodium (Porcine) 5,000 units 08/28/16 17:00 09/03/16 01:03 Heparin SC 5,000 units Q8H ALBERTO Administration Protocol Levetiracetam 1,000 mg/ Sodium 110 mls @ 460 mls/hr 08/28/16 22:00 09/02/16 21:32 Chloride IV 460 mls/hr Q12 ALBERTO Administration Propofol 1,000 mg in 100 mls @ 2.04 mls/hr 08/30/16 00:46 Diprivan IV .Q24H PRN TITRATE PER MD ORDER Protocol 5 MCG/KG/MIN Meropenem 1g/NS 100mL IVPB 1 gm in 100 mls @ 100 mls/hr 08/31/16 22:00 21:32 Meropenem 1g/Ns 100ml Ivpb IVPB 09/07/16 22:01 100 mls/hr Q12 ALBERTO Administration Protocol Insulin Human Lispro 0 units 09/01/16 07:15 09/03/16 01:00 Humalog Med SC Not Given Q6H ALBERTO Protocol Pantoprazole Sodium 40 mg 08/28/16 17:00 09/02/16 09:36 Protonix Inj IVP 40 mg DAILY ALBERTO Administration - Patient Studies Lab Studies: Lab Studies 09/03/16 09/02/16 09/02/16 Range/Units 01:05 21:08 16:06 POC Glucose (mg/dL) 193 H 195 H 143 H (65-110) mg/dL Phosphorus (2.5-4.5) mg/dL Magnesium (1.7-2.2) mg/dL 09/02/16 09/02/16 09/02/16 Range/Units 11:28 08:08 06:30 POC Glucose (mg/dL) 151 H 153 H (65-110) mg/dL Phosphorus 8.0 H (2.5-4.5) mg/dL Magnesium 2.4 H (1.7-2.2) mg/dL 09/02/16 09/01/16 09/01/16 Range/Units 01:26 20:07 13:24 POC Glucose (mg/dL) 145 H 140 H 99 (65-110) mg/dL Phosphorus (2.5-4.5) mg/dL Magnesium (1.7-2.2) mg/dL 09/01/16 09/01/16 08/31/16 Range/Units 08:42 01:22 21:08 POC Glucose (mg/dL) 96 84 86 (65-110) mg/dL Phosphorus (2.5-4.5) mg/dL Magnesium (1.7-2.2) mg/dL 08/31/16 08/31/16 08/31/16 Range/Units 16:01 11:36 08:26 POC Glucose (mg/dL) 108 113 H 126 H (65-110) mg/dL Phosphorus (2.5-4.5) mg/dL Magnesium (1.7-2.2) mg/dL 08/31/16 08/31/16 08/30/16 Range/Units 04:31 00:17 20:44 POC Glucose (mg/dL) 154 H 219 H 242 H (65-110) mg/dL Phosphorus (2.5-4.5) mg/dL Magnesium (1.7-2.2) mg/dL 08/30/16 Range/Units 12:18 POC Glucose (mg/dL) 296 H (65-110) mg/dL Phosphorus (2.5-4.5) mg/dL Magnesium (1.7-2.2) mg/dL Laboratory Results - last 24 hr 08/30/16 08/30/16 08/31/16 12:18 20:44 00:17 POC Glucose (mg/dL) 296 H 242 H 219 H Phosphorus Magnesium 08/31/16 08/31/16 08/31/16 04:31 08:26 11:36 POC Glucose (mg/dL) 154 H 126 H 113 H Phosphorus Magnesium 08/31/16 08/31/16 09/01/16 16:01 21:08 01:22 POC Glucose (mg/dL) 108 86 84 Phosphorus Magnesium 09/01/16 09/01/16 09/01/16 08:42 13:24 20:07 POC Glucose (mg/dL) 96 99 140 H Phosphorus Magnesium 09/02/16 09/02/16 09/02/16 01:26 06:30 08:08 POC Glucose (mg/dL) 145 H 153 H Phosphorus 8.0 H Magnesium 2.4 H 09/02/16 09/02/16 09/02/16 11:28 16:06 21:08 POC Glucose (mg/dL) 151 H 143 H 195 H Phosphorus Magnesium 09/03/16 01:05 POC Glucose (mg/dL) 193 H Phosphorus Magnesium EKG/Cardiology Studies: Cardiology / EKG Studies 09/02/16 14:53 EKG [ELECTROCARDIOGRAM] Stat Comment: Reason For Exam: arrythmia 09/03/16 07:00 ELECTROCARDIOGRAM Routine Comment: Reason For Exam: CAD, S/p IWMI, S/p A fib PRE OP:: N Does Patient Have a Pacemaker?: No PERFORMING PHYSICIAN/PROVIDER:: Rojelio Singh Fingerstick Blood Sugar Results: 151 Review of Systems - Review of Systems Systems not reviewed;Unavailable: Altered Mental Status Assessment/Plan - Assessment and Plan (Free Text) Assessment: 86 year old male with a PMH of CAD s/p multiple stents, ESRD on HD, HTN, NIDDM, left eye blindness, HLD, PVD who presented after out of hospital Vfib cardiac arrest, underwent PCI with 2 bare metal stents placed, was hemodynamically unstable on code freeze which was terminated, and who after stabilization had only a respiratory drive neurologically intact. Plan: Neurological Neurologically unchanged, NM brain perfusion on 08/31 showed no parenchymal uptake but some sagittal uptake, not brain Poor prognosis understood by family who will make decision regarding terminal extubation this afternoon. Continue keppra for seizure ppx DNR signed overnight Cardiovascular Off pressors, hemodynamically stable, cardio following, appreciate recs EKG: sinus rhythm, first degree AV block, RBBB, inferior infarct of undetermined age Cont ASA, plavix, lipitor Pulmonary Multiple failures of CPAP On PRVC 350/22/5/40% Cont nebs No other changes Renal/Fluids/Electrolytes Monitoring I&Os, on HD for ESRD, received HD yesterday, hyperkalemia resolved Nephro following GI On GI ppx, no other changes, on tube feeds through NG Infectious disease Afebrile, mild leukocytosis, ID followings, recs appreciated Continue meropenem D3 Hematological: Hgb stable, no acute bleeding noted, hemodynamically stable Endocrine Maintain euglycemia, cont RISS and accuchecks q6h Prophylaxis: SCDs, PPI Dispo: Patient is DNR. Patient's family is to decide to terminally extubate today. Provide comfort measures . Patient was seen and examined and case was discussed at length with attending physician Isabela Robbins, PGY-1 <Mauricio Rubio - Last Filed: 09/03/16 18:55> CCU Objective - Vital Signs / Intake & Output Intake and Output (Last 8hrs): Intake & Output 09/03/16 09/03/16 09/03/16 06:59 14:59 22:59 Intake Total 270 Balance 270 Intake: Oral 270 - Patient Studies Lab Studies: Lab Studies 09/03/16 09/03/16 09/03/16 Range/Units 11:00 08:40 08:40 WBC 7.6 D (4.5-11.0) 10^3/ul RBC 3.04 L (3.5-6.1) 10^6/uL Hgb 9.2 L (14.0-18.0) gm/dL Hct 27.4 L (42.0-52.0) % MCV 90.1 (80.0-105.0) fL MCH 30.3 (25.0-35.0) pg MCHC 33.6 (31.0-37.0) g/dl RDW 15.9 H (11.5-14.5) % Plt Count 151 (120.0-450.0) 10^3/uL MPV 11.5 H (7.0-11.0) fl Gran % 85.4 H (50.0-68.0) % Lymph % (Auto) 8.2 L (22.0-35.0) % [place] % (Auto) 5.3 (1.0-6.0) % Eos % (Auto) 1.1 L (1.5-5.0) % Baso % (Auto) 0.0 (0.0-3.0) % Gran # 6.47 (1.4-6.5) Lymph # 0.6 L (1.2-3.4) [place] # 0.4 (0.1-0.6) Eos # 0.1 (0.0-0.7) Baso # 0.00 (0.0-2.0) K/mm3 Sodium 138 (132-148) mmol/L Potassium 4.3 (3.6-5.0) mmol/L Chloride 98 (95-110) mmol/L Carbon Dioxide 29 (21-33) mmol/L Anion Gap 15 (10-20) BUN 62 H (7-21) mg/dL Creatinine 4.0 H (0.5-1.4) mg/dL Est GFR ( Amer) 17 Est GFR (Non-Af Amer) 14 POC Glucose (mg/dL) (65-110) mg/dL Random Glucose 238 H (70-110) mg/dL Hemoglobin A1c (4.2-6.5) % Calcium 7.8 L (8.4-10.5) mg/dL Phosphorus 6.5 H (2.5-4.5) mg/dL Magnesium 2.3 H (1.7-2.2) mg/dL Total Bilirubin 0.6 (0.2-1.3) mg/dL AST 87 H (15-59) U/L ALT 60 H (7-56) U/L Alkaline Phosphatase 134 H (38-133) U/L Total Protein 5.4 L (5.8-8.3) g/dL Albumin 2.9 L (3.0-4.8) g/dL Globulin 2.5 gm/dL Albumin/Globulin Ratio 1.2 (1.1-1.8) Procalcitonin 5.45 H (0.19-0.49) NG/ML 09/03/16 09/03/16 09/02/16 Range/Units 08:00 01:05 21:08 WBC (4.5-11.0) 10^3/ul RBC (3.5-6.1) 10^6/uL Hgb (14.0-18.0) gm/dL Hct (42.0-52.0) % MCV (80.0-105.0) fL MCH (25.0-35.0) pg MCHC (31.0-37.0) g/dl RDW (11.5-14.5) % Plt Count (120.0-450.0) 10^3/uL MPV (7.0-11.0) fl Gran % (50.0-68.0) % Lymph % (Auto) (22.0-35.0) % [place] % (Auto) (1.0-6.0) % Eos % (Auto) (1.5-5.0) % Baso % (Auto) (0.0-3.0) % Gran # (1.4-6.5) Lymph # (1.2-3.4) [place] # (0.1-0.6) Eos # (0.0-0.7) Baso # (0.0-2.0) K/mm3 Sodium (132-148) mmol/L Potassium (3.6-5.0) mmol/L Chloride (95-110) mmol/L Carbon Dioxide (21-33) mmol/L Anion Gap (10-20) BUN (7-21) mg/dL Creatinine (0.5-1.4) mg/dL Est GFR ( Amer) Est GFR (Non-Af Amer) POC Glucose (mg/dL) 311 H 193 H 195 H (65-110) mg/dL Random Glucose (70-110) mg/dL Hemoglobin A1c (4.2-6.5) % Calcium (8.4-10.5) mg/dL Phosphorus (2.5-4.5) mg/dL Magnesium (1.7-2.2) mg/dL Total Bilirubin (0.2-1.3) mg/dL AST (15-59) U/L ALT (7-56) U/L Alkaline Phosphatase (38-133) U/L Total Protein (5.8-8.3) g/dL Albumin (3.0-4.8) g/dL Globulin gm/dL Albumin/Globulin Ratio (1.1-1.8) Procalcitonin (0.19-0.49) NG/ML 05//17 Range/Units 05:15 WBC (4.5-11.0) 10^3/ul RBC (3.5-6.1) 10^6/uL Hgb (14.0-18.0) gm/dL Hct (42.0-52.0) % MCV (80.0-105.0) fL MCH (25.0-35.0) pg MCHC (31.0-37.0) g/dl RDW (11.5-14.5) % Plt Count (120.0-450.0) 10^3/uL MPV (7.0-11.0) fl Gran % (50.0-68.0) % Lymph % (Auto) (22.0-35.0) % [place] % (Auto) (1.0-6.0) % Eos % (Auto) (1.5-5.0) % Baso % (Auto) (0.0-3.0) % Gran # (1.4-6.5) Lymph # (1.2-3.4) [place] # (0.1-0.6) Eos # (0.0-0.7) Baso # (0.0-2.0) K/mm3 Sodium (132-148) mmol/L Potassium (3.6-5.0) mmol/L Chloride (95-110) mmol/L Carbon Dioxide (21-33) mmol/L Anion Gap (10-20) BUN (7-21) mg/dL Creatinine (0.5-1.4) mg/dL Est GFR ( Amer) Est GFR (Non-Af Amer) POC Glucose (mg/dL) (65-110) mg/dL Random Glucose (70-110) mg/dL Hemoglobin A1c 7.0 H (4.2-6.5) % Calcium (8.4-10.5) mg/dL Phosphorus (2.5-4.5) mg/dL Magnesium (1.7-2.2) mg/dL Total Bilirubin (0.2-1.3) mg/dL AST (15-59) U/L ALT (7-56) U/L Alkaline Phosphatase (38-133) U/L Total Protein (5.8-8.3) g/dL Albumin (3.0-4.8) g/dL Globulin gm/dL Albumin/Globulin Ratio (1.1-1.8) Procalcitonin (0.19-0.49) NG/ML Laboratory Results - last 24 hr 08/31/16 09/02/16 09/03/16 05:15 21:08 01:05 WBC RBC Hgb Hct MCV MCH MCHC RDW Plt Count MPV Gran % Lymph % (Auto) [place] % (Auto) Eos % (Auto) Baso % (Auto) Gran # Lymph # [place] # Eos # Baso # Sodium Potassium Chloride Carbon Dioxide Anion Gap BUN Creatinine Est GFR ( Amer) Est GFR (Non-Af Amer) POC Glucose (mg/dL) 195 H 193 H Random Glucose Hemoglobin A1c 7.0 H Calcium Phosphorus Magnesium Total Bilirubin AST ALT Alkaline Phosphatase Total Protein Albumin Globulin Albumin/Globulin Ratio Procalcitonin 09/03/16 09/03/16 09/03/16 08:00 08:40 08:40 WBC 7.6 D RBC 3.04 L Hgb 9.2 L Hct 27.4 L MCV 90.1 MCH 30.3 MCHC 33.6 RDW 15.9 H Plt Count 151 MPV 11.5 H Gran % 85.4 H Lymph % (Auto) 8.2 L [place] % (Auto) 5.3 Eos % (Auto) 1.1 L Baso % (Auto) 0.0 Gran # 6.47 Lymph # 0.6 L [place] # 0.4 Eos # 0.1 Baso # 0.00 Sodium 138 Potassium 4.3 Chloride 98 Carbon Dioxide 29 Anion Gap 15 BUN 62 H Creatinine 4.0 H Est GFR ( Amer) 17 Est GFR (Non-Af Amer) 14 POC Glucose (mg/dL) 311 H Random Glucose 238 H Hemoglobin A1c Calcium 7.8 L Phosphorus 6.5 H Magnesium 2.3 H Total Bilirubin 0.6 AST 87 H ALT 60 H Alkaline Phosphatase 134 H Total Protein 5.4 L Albumin 2.9 L Globulin 2.5 Albumin/Globulin Ratio 1.2 Procalcitonin 09/03/16 11:00 WBC RBC Hgb Hct MCV MCH MCHC RDW Plt Count MPV Gran % Lymph % (Auto) [place] % (Auto) Eos % (Auto) Baso % (Auto) Gran # Lymph # [place] # Eos # Baso # Sodium Potassium Chloride Carbon Dioxide Anion Gap BUN Creatinine Est GFR ( Amer) Est GFR (Non-Af Amer) POC Glucose (mg/dL) Random Glucose Hemoglobin A1c Calcium Phosphorus Magnesium Total Bilirubin AST ALT Alkaline Phosphatase Total Protein Albumin Globulin Albumin/Globulin Ratio Procalcitonin 5.45 H EKG/Cardiology Studies: Cardiology / EKG Studies 09/03/16 07:00 ELECTROCARDIOGRAM Routine Comment: Reason For Exam: CAD, S/p IWMI, S/p A fib PRE OP:: N Does Patient Have a Pacemaker?: No PERFORMING PHYSICIAN/PROVIDER:: Rojelio Singh Addendum Addendum: 09/03/16 18:54 patient was seen, examined and discussed at bedside with Dr. Robbins shoulder to shoulder. her note reflects my exam, assessment and plan, except as below. Meds/ Labs/ONE reviewed 86 yo with anoxic brain injuiry, family decided to proceed with trminal extubation, comfort care. ccm time 40 min
--- NOTE | 2016-09-03 08:01 | PN ---
DATE: 09/02/2016 REASON FOR CONSULTATION AND FOLLOWUP: Acute ST-segment myocardial infarction, status post 2-vessel a ngioplasty, RCA, circumflex with bare metal stent, rule out anoxic encephalopathy, status post inferi or wall myocardial infarction, status post CPR, downtime 10-15 minutes. BRIEF CLINICAL HISTORY: An 86-year-old male with a past medical history significant for diabetes 30 years, end-stage renal disease on dialysis 6-7 years, who suddenly collapsed, witnessed in dialysis c enter. CPR was done. Downtime was 10-15 minutes requiring intubation. After defibrillator, p atient shows AFib, ST elevation myocardial infarction, 2-[address] elevation inferior lead, code STEMI was activated before taken to the label paster. The patient had CAT scan done to rule out intercerebral bleed, was negative. The patient was taken and emergency angioplasty of RCA and circumflex was done. So far, since the patient remained on vent, only rarely gag reflex occasionally present. It looks like anoxic encephalopathy. Family is aware of, one of daughters is a nurse. Discussed this morning in length to the daughter and 2 sons. They are completely aware of the patient's condition and prog nosis. They made DNR. PHYSICAL EXAMINATION: VITAL SIGNS: Temperature afebrile, heart rate 84, temperature 100, heart rate 84, blood pressure 137 /56. HEENT: PERRLA. Extraocular muscles intact. NECK: Supple. No carotid bruits. No thyromegaly. CHEST: Clear to auscultation. HEART: S1, S2 regular. ABDOMEN: Soft. EXTREMITIES: Clubbing, cyanosis negative. BLOOD WORKUP: WBC 12. , hemoglobin 8.8, hematocrit 26.4, platelet count 132. Chemistry shows so dium 130, potassium 5. , chloride 102, carbon dioxide 26, anion gap of 16, BUN 73, creatinine 5.3 . Telemetry shows normal sinus, first degree atrioventricular block though they are regarding as a junc tional bradycardia, but carefully, it looks like sinus rhythm with first degree atrioventricular bloc k, status post cardiac arrest, status post cardiopulmonary resuscitation, status post downtime 10-15 minutes, rule out anoxic encephalopathy, inferior wall myocardial infarction, paroxysmal atrial fibri llation. After the defibrillator, patient was in atrial fibrillation, but after angioplasty, patient converted to normal sinus, so then patient in normal sinus with first degree atrioventricular block, bilateral pneumonia, pleural effusion, anoxic encephalopathy, end-stage renal disease on dialysis, jose rocha for 30 years. RECOMMENDATION: We will start feeding with Nepro at 30 mL an hour, nasogastric feeding. Discussed w ith both sons. They agreed for nasogastric feeding and the daughter. Continue supportive care. If the prolonged intubation suspected, which is likely the case, consider percutaneous endoscopic gastro stomy and trach. We will discuss with the family. The family is thinking to pull off the vent. Dis cussing among the family members. For the time being, continue aspirin, continue Plavix, continue Co reg. We will get EKG. Continue atorvastatin. Overall, patient's condition is critical. [facility] p rognosis is guarded. We will follow with you. Thank you, Dr. Avila, for providing us the opportunity in taking care of the patient. Rojelio Singh MD cc: [id number] TT: 09/02/2016 15:36:13 Confirmation # [id number] Dictation # [id number]
--- NOTE | 2016-09-03 08:11 | PN ---
DATE: 09/02/2016 The patient is seen in the ICU. The patient is currently receiving dialysis. He is unresponsive on mechanical ventilation. Face appears very puffy. Daughter is at bedside. PHYSICAL EXAMINATION: GENERAL: Elderly male lying in bed in the ICU, on mechanical ventilation. VITAL SIGNS: Blood pressure 132/52, heart rate 79, respiratory rate 18, temperature 99.7, T-max is 1 00.5. HEENT: Normocephalic, atraumatic. Pupils sluggish, 2 mm. Positive pallor. Positive chemosis. NECK: Supple. No JVD. LUNGS: Bilateral equal air entry, bilateral rhonchi, equal expansion. CARDIAC: S1, S2, regular rate and rhythm, no murmur, no rub. ABDOMEN: Obese, distended, soft, nontender, bowel sounds present. EXTREMITIES: Chronic stasis changes in lower extremities, thin shiny skin, hairless, 2+ pitting khadar a of the extremities. INTAKE AND OUTPUT: 400/0. LABORATORY DATA: WBC 12.4, hemoglobin 8.8, hematocrit 26, platelets 132. Sodium 139, potassium 5.1, chloride 102, CO2 26, BUN 73, creatinine 5.3, glucose 123, calcium 8.1, phosphorus 8.0, magnesium 2. 4, AST 86, ALT 57, albumin 2.9. Blood cultures negative. CURRENT MEDICATIONS: Coreg 3.125 b.i.d., Diprivan is on hold, DuoNeb, Ecotrin, heparin, insulin, Ke ppra, Lipitor, meropenem 1 gram q. 12, Plavix, Protonix, Tylenol. ASSESSMENT AND PLAN: An 86-year-old male with history of [id number] diabetes mellitus, hy pertension, peripheral vascular disease, endstage renal disease, admitted after witnessed cardiac arr est in the dialysis unit while waiting for dialysis. The patient was sent to the Emergency Room. Th e patient underwent a code heart, found to have acute inferior wall myocardial infarction, had primar y angioplasty and stenting of right coronary artery and circumflex. Subsequently, the patient has an oxic encephalopathy. Brain nuclear flow scan showing no flow in the parenchymal, minimal fluid in th e sagittal sinus. At this time, patient is brain state. Family members are trying to make a de cision regarding withdrawal of support. Have had a discussion with multiple family members. There a re 4 children that are involved in the decision making. They are almost ready to decide regarding wi thdrawal of care. At this time, they are requesting patient to be dialyzed today. The plan is to probably withdraw and remove the patient from ventilator tomorrow. More supportive counseling was provided to family members. Case is discussed with ICU staff. Case is discussed with Dr. Do. Case is discussed with dialysis staff. We will conform with the family's wishes and complete dialysis treatment today. More than 35 minutes was spent in coordination of care and counseling of the family. Meghan Rose MD cc: [phone] TT: 09/02/2016 18:13:32 Confirmation # [id number] Dictation # [id number] jn
[2016-09-03 08:57] LABS: ADD MANUAL DIFF? NO
[2016-09-03 09:11] LABS: EOS # 0.1 (0.0-0.7); EOS % 1.1 % (1.5-5.0); GRAN # 6.47 (1.4-6.5); GRAN % 85.4 % (50.0-68.0); HEMATOCRIT 27.4 % (42.0-52.0); LYMPH # 0.6 (1.2-3.4); LYMPH % 8.2 % (22.0-35.0); MEAN CELL VOLUME 90.1 fL (80.0-105.0); MEAN CORPUSCULAR HEMOGLOBIN 30.3 pg (25.0-35.0); MEAN CORPUSCULAR HGB CONC 33.6 g/dl (31.0-37.0); MEAN PLATELET VOLUME 11.5 fl (7.0-11.0); MONO # 0.4 (0.1-0.6); MONO % 5.3 % (1.0-6.0); PLATELET COUNT 151 10^3/uL (120.0-450.0); RED CELL DISTRIBUTION WIDTH 15.9 % (11.5-14.5); WHITE BLOOD COUNT 7.6 10^3/ul (4.5-11.0)
[2016-09-03 09:12] LABS: BILIRUBIN,TOTAL 0.6 mg/dL (0.2-1.3); CALCIUM 7.8 mg/dL (8.4-10.5); MAGNESIUM 2.3 mg/dL (1.7-2.2); PHOSPHOROUS 6.5 mg/dL (2.5-4.5); POTASSIUM 4.3 mmol/L (3.6-5.0); TOTAL PROTEIN 5.4 g/dL (5.8-8.3)
[2016-09-03 09:13] LABS: ALB/GLOB RATIO 1.2 (1.1-1.8)
[2016-09-03] MEDS: levETIRAcetam 1,000 MG in Sodium Chloride 0.9% 100 ML IV SCH (09:21)
[2016-09-03] MEDS: Meropenem 1g/NS 100mL IVPB 1 GM/100 ML PIGGYBACK IVPB SCH (09:22)
--- NOTE | 2016-09-03 10:20 | PN ---
DATE: 09/03/2016 REASON FOR CONSULTATION AND FOLLOWUP: Acute ST segment myocardial infarction, acute inferior wall NV , cerebral anoxia, status post PTCA. BRIEF CLINICAL HISTORY: This is an 86-year-old male with a past medical history significant for diab etes 30 years, end-stage renal disease on dialysis for 7 years, witness collapse in dialysis center. CPR was done. Down time 10-15 minutes, requiring intubation. After defibrillated, EKG showed infer ior wall NV. Code STEMI was activated. CAT scan was done prior to code STEMI. No intracerebral ble ed. The patient had 2 bare metal stents placed in RCA and LAD, but the patient remained comatose, po ssibly anoxic encephalopathy. Family made DNR now and they are thinking to remove the vent. Discuss ed at length with both brothers and sisters. PHYSICAL EXAMINATION: VITAL SIGNS: Temperature 100.2, heart rate 106, blood pressure 131/48. HEENT: PERRLA. Extraocular muscles intact. NECK: Supple. No carotid bruits. No thyromegaly. CHEST: Clear to auscultation. HEART: S1, S2 regular. ABDOMEN: Soft. EXTREMITIES: Clubbing and cyanosis negative. LABORATORY DATA: Blood workup as follows: WBC 7, hemoglobin 9.1, hematocrit 27.4, platelet count 15 1. Chemistry shows sodium 130, potassium 4.0, chloride 90, carbon dioxide 29, anion gap of 16, BUN 6 , creatinine of 4. IMPRESSION: End-stage renal disease on dialysis, acute ST segment myocardial infarction, status post cardiorespiratory failure, status post CPR for 10-15 minutes downtime, rule out anoxic encephalopath y possibly. Diabetes, hypertension, hyperlipidemia. Ventilator independent. RECOMMENDATION: Continue supportive care. Continue NG feeding. The patient's family made him a DNR . Hemodynamically, the patient is stable. Continue aspirin and Plavix. Continue NG feeding, increa sed to 50 mL an hour. Continue supportive care. Overall, the patient's prognosis is guarded. CODE STATUS: DNR. Family is aware. Rojelio Singh MD cc: [id number] TT: 09/03/2016 10:19:25 Confirmation # [id number] Dictation # [id number] tn
[2016-09-03] MEDS ORDERED: Morphine PCA 1 mg/ml (25ml) 25 ML IV PRN (12:19)
--- NOTE | 2016-09-03 12:41 | CARD ---
APPROVED REPORT EKG Measurement Heart [id number] <Conclusion> Sinus rhythm with 1st degree AV block Right bundle branch block Inferior infarct, age undetermined Abnormal ECG
[2016-09-03] MEDS ORDERED: Morphine 2 mg/ml ISec IVP STA (13:00)
[2016-09-03 13:19] VITALS: PULSE 20
--- NOTE | 2016-09-03 13:20 | CP.PCM.CON ---
History of Present Illness - History of Present Illness History of Present Illness: Palliative services requested by Dr Rubio Reason: Gaols of care, end of life counseling 86 year old male who suffered a cardiopulmonary arrest, s/p acute inferior wall GA. He was intubated d in the field. Recent EEG showed diffuse delta waves indicating deep coma. PMHx: ESRD HD dependent, HTN, DM, anxiety disorder, dyslipidemia,PVD, osteoarthritis, glaucoma, blind in R eye. Social History:Non smoker, no alcohol or drug use. Lives with spouse. Family History: Non contributory. Advance Care Planning: The patient does not have an Advance Directive. As per family request,he is DNR Past Patient History - Infectious Disease Hx of Infectious Diseases: None - Past Social History Smoking Status: Unknown If Ever Smoked - CARDIAC Hx Pacemaker: No - NEUROLOGICAL Hx Paralysis: No - HEENT Hx HEENT Problems: Yes ([place] left ear) Hx Blind: Yes (left eye) - RENAL Date of Last Dialysis Treatment: 09/06/15 Hx Renal Failure: Yes - ENDOCRINE/METABOLIC Hx Diabetes Mellitus Type 2: Yes - HEMATOLOGICAL/ONCOLOGICAL Hx Blood Transfusions: No - MUSCULOSKELETAL/RHEUMATOLOGICAL Hx Musculoskeletal Disorders: Yes - GASTROINTESTINAL Hx Gastrointestinal Disorders: Yes (Constipation) - PSYCHIATRIC Hx Emotional Abuse: No Hx Physical Abuse: No Hx Substance Use: No - SURGICAL HISTORY Other/Comment: angioplasty, dialysis access rt arm - ANESTHESIA Hx Anesthesia Reactions: No Hx Malignant Hyperthermia: No Meds Allergies/Adverse Reactions: Allergies Allergy/AdvReac Type Severity Reaction Status Date / Time No Known Allergies Allergy Verified 09/07/15 21:26 - Medications Medications: Current Medications Acetaminophen (Tylenol 325mg Tab) 650 mg PO Q6H PRN PRN Reason: Fever >100.4 F Last Admin: 09/02/16 23:02 Dose: 650 mg Albuterol/Ipratropium (Duoneb 3 Mg/0.5 Mg (3 Ml) Ud) 3 ml IH [id number] [facility] Last Admin: 09/03/16 13:16 Dose: Not Given Albuterol/Ipratropium (Duoneb 3 Mg/0.5 Mg (3 Ml) Ud) 3 ml IH Q2H PRN PRN Reason: Shortness of Breath Aspirin (Ecotrin) 81 mg PO DAILY [facility] Last Admin: 09/03/16 09:19 Dose: 81 mg Atorvastatin Calcium (Lipitor) 80 mg PO DIN [facility] Last Admin: 09/01/16 18:15 Dose: 80 mg Carvedilol (Coreg) 3.125 mg PO BID [facility] Last Admin: 09/03/16 09:20 Dose: 3.125 mg Clopidogrel Bisulfate (Plavix) 75 mg PO DAILY [facility] Last Admin: 09/03/16 09:19 Dose: 75 mg Heparin Sodium (Porcine) (Heparin) 5,000 units SC Q8H [facility] PRN Reason: Protocol Last Admin: 09/03/16 09:19 Dose: 5,000 units Levetiracetam 1,000 mg/ Sodium (Chloride) 110 mls @ 460 mls/hr IV Q12 [facility] Last Admin: 09/03/16 09:21 Dose: 460 mls/hr Propofol (Diprivan) 1,000 mg in 100 mls @ 2.04 mls/hr IV .Q24H PRN; Protocol; 5 MCG/KG/MIN PRN Reason: TITRATE PER MD ORDER Meropenem 1g/NS 100mL IVPB (Meropenem 1g/Ns 100ml Ivpb) 1 gm in 100 mls @ 100 mls/hr IVPB Q12 [facility] PRN Reason: Protocol Stop: 09/07/16 22:01 Last Admin: 09/03/16 09:22 Dose: 100 mls/hr Morphine Sulfate (Morphine Meal Cook 1 Mg/Ml) 25 mls @ 1 mls/hr IV PRN PRN; Protocol ; 1 MG/HR PRN Reason: SUBEDITOR PER MD ORDER Last Admin: 09/03/16 13:04 Dose: 1 mg/hr, 1 mls/hr Insulin Human Lispro (Humalog Med) 0 units SC Q6H [facility] PRN Reason: Protocol Last Admin: 09/03/16 13:15 Dose: Not Given Pantoprazole Sodium (Protonix Inj) 40 mg IVP DAILY [facility] Last Admin: 09/03/16 09:23 Dose: 40 mg Physical Exam - Constitutional Appears: No Acute Distress, Chronically Ill - Head Exam Head Exam: NORMAL INSPECTION - Eye Exam Pupil Exam: Fixed - ENT Exam ENT Exam: Mucous Membranes Moist - Respiratory Exam Respiratory Exam: Decreased Breath Sounds - Cardiovascular Exam Cardiovascular Exam: +S1, +S2 - GI/Abdominal Exam GI & Abdominal Exam: Diminished Bowel Sounds, Soft - Neurological Exam Additional comments: unresponsive - Skin Skin Exam: Dry, Pallor, Warm - Additional Findings Additional findings: Palliative performance scale rating 10% Results - Vital Signs Recent Vital Signs: Last Vital Signs Temp 100.8 F H 09/03/16 11:55 Pulse 81 09/03/16 11:55 Resp 22 09/03/16 07:44 BP 97/46 L 09/03/16 11:55 Pulse Ox 98 09/03/16 11:55 - Labs Result Diagrams: 09/03/16 08:40 09/03/16 08:40 Labs: Laboratory Results - last 24 hr 09/02/16 09/02/16 09/03/16 16:06 21:08 01:05 WBC RBC Hgb Hct MCV MCH MCHC RDW Plt Count MPV Gran % Lymph % (Auto) Cole % (Auto) Eos % (Auto) Baso % (Auto) Gran # Lymph # Cole # Eos # Baso # Sodium Potassium Chloride Carbon Dioxide Anion Gap BUN Creatinine Est GFR ( Amer) Est GFR (Non-Af Amer) POC Glucose (mg/dL) 143 H 195 H 193 H Random Glucose Calcium Phosphorus Magnesium Total Bilirubin AST ALT Alkaline Phosphatase Total Protein Albumin Globulin Albumin/Globulin Ratio 09/03/16 09/03/16 09/03/16 08:00 08:40 08:40 WBC 7.6 D RBC 3.04 L Hgb 9.2 L Hct 27.4 L MCV 90.1 MCH 30.3 MCHC 33.6 RDW 15.9 H Plt Count 151 MPV 11.5 H Gran % 85.4 H Lymph % (Auto) 8.2 L Cole % (Auto) 5.3 Eos % (Auto) 1.1 L Baso % (Auto) 0.0 Gran # 6.47 Lymph # 0.6 L Cole # 0.4 Eos # 0.1 Baso # 0.00 Sodium 138 Potassium 4.3 Chloride 98 Carbon Dioxide 29 Anion Gap 15 BUN 62 H Creatinine 4.0 H Est GFR ( Amer) 17 Est GFR (Non-Af Amer) 14 POC Glucose (mg/dL) 311 H Random Glucose 238 H Calcium 7.8 L Phosphorus 6.5 H Magnesium 2.3 H Total Bilirubin 0.6 AST 87 H ALT 60 H Alkaline Phosphatase 134 H Total Protein 5.4 L Albumin 2.9 L Globulin 2.5 Albumin/Globulin Ratio 1.2 Assessment & Plan - Assessment and Plan (Free Text) Assessment: 86 year old male s/p cardiopulmonary arrest,inferior wall GA, intubated. Patient has no gag or corneal reflex, does not withdraw from noxious stimuli. I was asked to speak with this family regarding gaols of care. Family had earlier discussion with Dr Rubio and are aware of poor prognosis. Family slowly accepting the gravity of his condition. Family decided to terminal extubation and comfort care. Explanation of extubation and comfort process given. Questions s answered. Family understands that patient is likely to . End of life counseling provided. Spiritual counseling offered, family refused. Time spent in discussion with family regarding goals of care and end of life counseling, 40 minutes Plan: Terminal extubation. End of life counseling
[2016-09-03 13:28] VITALS: BP 98/45; TEMP 100.9; O2SAT 86
--- NOTE | 2016-09-03 13:29 | PN ---
DATE: 09/03/2016 SUBJECTIVE: The patient is currently seen in ICU, bed 5. The patient remains on a ventilator. He i s unresponsive. Pupils are not reactive. No gag reflex. The patient was made a DNR and patient barber l be having an extubation later today. The patient has significant anoxic encephalopathy and after 6 days it does not appear that there is any improvement. The patient's family has been counseled by a ll pertinent parties. MEDICATIONS: Medication list reviewed. The patient is currently on Coreg, DuoNeb, Ecotrin, heparin, Humalog, Keppra, Lipitor, meropenem, morphine, Plavix, Protonix, Tylenol p.r.n. OBJECTIVE: INTAKE AND OUTPUT: Intake 1020, output is 0, plus hemodialysis yesterday. VITAL SIGNS: Blood pressure 97/46. The patient is on no pressors. Temperature 100.8. Pulse is 81 with a respiratory rate of 22. HEENT: Eyes are closed. Pupils are not reactive. The patient has no gag reflex. NECK: Supple, no neck vein distention. CHEST: Decreased air entry bilaterally. Scattered rhonchi. No rales, no wheezing. CARDIOVASCULAR: S1, S2 normal. No murmurs, rubs noted. ABDOMEN: Soft. Mild distention. Bowel sounds are present. EXTREMITIES: Show trace to 1+ dependent edema. NEUROLOGIC: Shows him to be unresponsive on a ventilator. LABORATORY DATA AND IMAGING: CBC: White blood cell count today 7.6, hemoglobin 9.2 with a platelet count of 151,000. Chemistries today with the exception of an elevated BUN of 62, creatinine of 4.0, are normal. Glucose is 238. Calcium 7.8, phosphorus 6.5, magnesium 2.3. Albumin was 2.9. ASSESSMENT: 1. Status post cardiac arrest in the setting of an acute inferior wall myocardial infarction, status post cardiac catheterization, percutaneous transluminal coronary angioplasty and stent placement. T he cardiac arrest was associated with a period of anoxia. Subsequently, the patient has developed an oxic encephalopathy. Brain scan was done which is supportive, but not diagnostic of this. 2. End-stage renal disease. As per patient's family's request, the patient had one last dialysis ye sterday allowing them more time to make a decision regarding terminal extubation. 3. History of diabetes mellitus. 4. History of severe peripheral vascular disease. PLAN: 1. Lengthy time spent with the patient's entire family in the room. Their decision to terminally ex tubate the patient had been made prior to my talking with them today. 2. Complete comfort measures for both patient and family. Kendell Canada MD cc: [id number] TT: 09/03/2016 13:28:37 Confirmation # [id number] Dictation # [id number] rn
--- NOTE | 2016-09-04 11:16 | DS ---
The patient is an 86-year-old who was admitted on 08/28. The patient was receiving his dialysis. Dur ing dialysis, nurse found him unresponsive. They called He was found to have V-fib cardiac arrest. He was brought to Emergency Room. He was found to be unresponsive. He was intubated for respiratory failure, had CT scan of the brain done. When there was no bleed found, he was taken to [facility] and had emergent angioplasty done. He was found to have anterior wall OK. He was hemodynamically unsta ble, so he was placed on cold freeze. He remained on vent. He was found to have bilateral pneumonia . He was given IV antibiotics. He remained on pressors for a short while and then he was taken off of that. He had EEG done on 08/30 that showed diffuse slowing throughout the study with delta activit y consistent with severe bilateral cerebral dysfunction, no evidence of epileptiform activity on EEG. Collet Driller had back and forth conversation with the family. Prognosis was poor. Palliative care nurse was also consulted. After a long discussion with family and different consultants, the patient 's family made him DNR and requested for terminal extubation, so patient in the afternoon . When I saw the patient earlier, he was still on vent. PHYSICAL EXAMINATION: VITAL SIGNS: At that point, he has temperature of 100.9, pulse 85, respirations 20, blood pressure 9 8/45. GENERAL: He was intubated and unresponsive. HEART: Regular rate and rhythm. ABDOMEN: Soft, obese, nontender, no rebound, no guarding. NEUROLOGIC: He was unresponsive. LABORATORY EXAMINATION: Today, his WBC 7.6, hemoglobin 9.2, hematocrit 27.4, platelet 151. PT is 15 .5, INR 1.44. Chemistry: Sodium 138, potassium 4.3, chloride 98, CO2 29, BUN 62, creatinine 4.0, bl ood sugar of 238. DISCHARGE DIAGNOSES: 1. Status post cardiac arrest, status post code heart, status post respiratory failure. 2. Anoxic encephalopathy. 3. End-stage renal disease, on hemodialysis. The patient was made DNR. He had terminal extubation done, so he in the afternoon on 08/13 3. Milind Avila MD cc: [phone] TT: 09/04/2016 11:15:18 tn
== END 2016-09-03 13:20 | DRG 248 ==
LOC: ED 13:41 → ERH 14:36 → CCU 17:14
PROVIDERS: ADMIT Internal Medicine; ATTEND Internal Medicine
PROC: 02713EZ Dilation of Coronary Artery, Two Arteries with Two Intraluminal Devices, Percutaneous Approach (ICD-10-PCS; principal; 2016-08-28)
PROC: 5A1955Z Respiratory Ventilation, Greater than 96 Consecutive Hours (ICD-10-PCS; 2016-08-28)
PROC: 4A023N7 Measurement of Cardiac Sampling and Pressure, Left Heart, Percutaneous Approach (ICD-10-PCS; 2016-08-28)
PROC: B211YZZ Fluoroscopy of Multiple Coronary Arteries using Other Contrast (ICD-10-PCS; 2016-08-28)
PROC: B215YZZ Fluoroscopy of Left Heart using Other Contrast (ICD-10-PCS; 2016-08-28)
PROC: 0BH17EZ Insertion of Endotracheal Airway into Trachea, Via Natural or Artificial Opening (ICD-10-PCS; 2016-08-28)
PROC: 05HN33Z Insertion of Infusion Device into Left Internal Jugular Vein, Percutaneous Approach (ICD-10-PCS; 2016-08-28)
PROC: B544ZZA Ultrasonography of Left Jugular Veins, Guidance (ICD-10-PCS; 2016-08-28)
PROC: 5A1D60Z (ICD-10-PCS; 2016-08-29)
PROC: 30233N1 Transfusion of Nonautologous Red Blood Cells into Peripheral Vein, Percutaneous Approach (ICD-10-PCS; 2016-08-29)
PROC: 3E0F7GC Introduction of Other Therapeutic Substance into Respiratory Tract, Via Natural or Artificial Opening (ICD-10-PCS; 2016-08-30)
DX: I21.19 ST elevation (STEMI) myocardial infarction involving other coronary artery of inferior wall (principal); N18.6 End stage renal disease; R57.0 Cardiogenic shock; J96.91 Respiratory failure, unspecified with hypoxia; I49.01 Ventricular fibrillation; R65.11 Systemic inflammatory response syndrome (SIRS) of non-infectious origin with acute organ dysfunction; J18.9 Pneumonia, unspecified organism; G93.1 Anoxic brain damage, not elsewhere classified; I13.2 Hypertensive heart and chronic kidney disease with heart failure and with stage 5 chronic kidney disease, or end stage renal disease; E11.22 Type 2 diabetes mellitus with diabetic chronic kidney disease; E11.51 Type 2 diabetes mellitus with diabetic peripheral angiopathy without gangrene; E11.65 Type 2 diabetes mellitus with hyperglycemia; I48.91 Unspecified atrial fibrillation; I44.0 Atrioventricular block, first degree; I25.5 Ischemic cardiomyopathy; Z99.2 Dependence on renal dialysis; I25.10 Atherosclerotic heart disease of native coronary artery without angina pectoris; D63.1 Anemia in chronic kidney disease; E78.5 Hyperlipidemia, unspecified; F41.9 Anxiety disorder, unspecified; M15.9 Polyosteoarthritis, unspecified; H40.9 Unspecified glaucoma; G25.3 Myoclonus; E83.51 Hypocalcemia; Z51.5 Encounter for palliative care; Z66 Do not resuscitate; I50.9 Heart failure, unspecified; Z79.84 Long term (current) use of oral hypoglycemic drugs